=== PATIENT | female | born 1975 | race Caucasian/White ===

== ENCOUNTER 2017-03-18 00:23 | Emergency (ER) | payer OTHER ==
[2017-03-18 01:11] VITALS: BMI 25.8
[2017-03-18 01:25] VITALS: BP 134/76; PULSE 82; RESP 18; TEMP 98.1; O2SAT 99
--- NOTE | 2017-03-18 01:54 | ED PDOC ---
Arrival/HPI - General Chief Complaint: Abdominal Pain Time Seen by Provider: 03/18/17 01:00 Historian: Patient - History of Present Illness Narrative History of Present Illness (Text): 03/18/17 01:54 Risa Thompson is a 41 year old female, whose past medical history includes liposuction, abdominoplasty, and kidney stones, who presents to the Emergency department complaining of lower abdominal pain tonight. Patient states pain is greater in LLQ and radiates to her left flank. Patient denies any fever, chills , chest pain, shortness of breath, nausea, vomiting, diarrhea, urinary symptoms , neck pain, headache, dizziness, or any other complaints. Time/Duration: Other (tonight) Symptom Onset: Gradual Symptom Course: Unchanged Activities at Onset: Light Context: Home Past Medical History - Provider Review Nursing Documentation Reviewed: Yes - Infectious Disease Hx of Infectious Diseases: None - Tetanus Immunization Tetanus Immunization: Unknown - Cardiac Hx Heart Murmur: Yes - Renal Hx Kidney Stones: Yes (12-01-11) - Musculoskeletal/Rheumatological Hx Falls: No - Gastrointestinal Hx Colitis: Yes - Genitourinary/Gynecological Hx Urinary Tract Infection: Yes (12-01-11) - Psychiatric Hx Depression: No Hx Emotional Abuse: No Hx Physical Abuse: No Hx Substance Use: No - Past Surgical History Past Surgical History: No Previous - Anesthesia Hx Anesthesia: No Hx Anesthesia Reactions: No Hx Malignant Hyperthermia: No - Suicidal Assessment Feels Threatened In Home Enviroment: No Family/Social History - Physician Review Nursing Documentation Reviewed: Yes Family/Social History: Unknown Family HX Smoking Status: Never Smoked Hx Alcohol Use: No Hx Substance Use: No Hx Substance Use Treatment: No Allergies/Home Meds Allergies/Adverse Reactions: Allergies No Known Allergies Allergy (Verified 01/09/14 09:29) Review of Systems - Physician Review All systems were reviewed & negative as marked: Yes - Review of Systems Constitutional: Normal. absent: Fevers Eyes: Normal ENT: Normal Respiratory: Normal. absent: SOB, Cough Cardiovascular: Normal. absent: Chest Pain Gastrointestinal: Abdominal Pain. absent: Diarrhea, Nausea, Vomiting Genitourinary Female: Normal. absent: Dysuria, Frequency, Hematuria, Urine Output Changes Musculoskeletal: absent: Neck Pain Skin: Normal. absent: Rash Neurological: Normal. absent: Headache, Dizziness Endocrine: Normal Hemo/Lymphatic: Normal Psychiatric: Normal Physical Exam Vital Signs Reviewed: Yes Vital Signs Temp Pulse Resp BP Pulse Ox 03/18/17 01:25 98.1 F 82 18 134/76 99 Temperature: Afebrile Blood Pressure: Normal Pulse: Regular Respiratory Rate: Normal Appearance: Positive for: Well-Appearing, Non-Toxic, Comfortable Pain Distress: None Mental Status: Positive for: Alert and Oriented X 3 - Systems Exam Head: Present: Atraumatic, Normocephalic Pupils: Present: PERRL Extroacular Muscles: Present: EOMI Conjunctiva: Present: Normal Mouth: Present: Moist Mucous Membranes Neck: Present: Normal Range of Motion Respiratory/Chest: Present: Clear to Auscultation, Good Air Exchange. No: Respiratory Distress, Accessory Muscle Use Cardiovascular: Present: Regular Rate and Rhythm, Normal S1, S2. No: Murmurs Abdomen: Present: Normal Bowel Sounds. No: Tenderness, Distention, Peritoneal Signs Back: Present: Normal Inspection Upper Extremity: Present: Normal Inspection. No: Cyanosis, Edema Lower Extremity: Present: Normal Inspection. No: Edema Neurological: Present: GCS=15, CN II-XII Intact, Speech Normal Skin: Present: Warm, Dry, Normal Color. No: Rashes Psychiatric: Present: Alert, Oriented x 3, Normal Insight, Normal Concentration Medical Decision Making ED Course and Treatment: 03/18/17 01:54 Impression: 41 year old female complaining of lower abdominal pain radiating to left flank tonight. Plan: -- Labs, lipase -- Urinalysis -- Reassess and disposition Progress Notes: 03/18/17 04:40 CT Abdomen and Pelvis shows: Lower thorax: No acute findings. ABDOMEN: Liver: Unremarkable. Gallbladder and bile ducts: No calcified stones. No ductal dilation. Pancreas: Unremarkable. No ductal dilation. Spleen: No splenomegaly. Adrenals: No mass. Kidneys and ureters: Few small calculi within RIGHT kidney. No hydronephrosis. Stomach and bowel: Cecum within mid lower abdomen. No definite mural thickening. No obstruction. Appendix: Normal caliber. No inflammation. PELVIS: Bladder: Unremarkable. No stones. Reproductive: 2.1 x 2.3 x 2.2 cm hypodense lesion within LEFT ovary. ABDOMEN and PELVIS: Intraperitoneal space: No significant fluid collection. No free air. Bones/joints: No acute fracture. Soft tissues: Unremarkable. Vasculature: Unremarkable. No aneurysm. Lymph nodes: No pathologically enlarged lymph nodes. IMPRESSION: 1. Nonobstructing renal calculi. 2. Probable LEFT ovarian cyst. Consider ultrasound. - Lab Interpretations Lab Results: 03/18/17 02:10 03/18/17 02:10 Lab Results 03/18/17 02:10: Sodium 138, Potassium 3.6, Chloride 102, Carbon Dioxide 26, Anion Gap 14, BUN 10, Creatinine 0.8, Est GFR ( Amer) > 60, Est GFR (Non- Af Amer) > 60, Random Glucose 93, Calcium 9.5, Total Bilirubin 0.3, AST 32, ALT 39, Alkaline Phosphatase 92, Total Protein 7.8, Albumin 3.9, Globulin 3.9, Albumin/Globulin Ratio 1.0 L, Lipase 96 03/18/17 02:10: PT 12.3, INR 1.07, APTT 26.6 03/18/17 02:10: WBC 7.6, RBC 4.47, Hgb 12.2, Hct 38.2, MCV 85.5, MCH 27.3, MCHC 31.9, RDW 13.5, Plt Count 281, MPV 9.5, Gran % 57.8, Lymph % (Auto) 31.3, Porter % (Auto) 10.3 H, Eos % (Auto) 0.5 L, Baso % (Auto) 0.1, Gran # 4.38, Lymph # 2.4 , Porter # 0.8 H, Eos # 0.0, Baso # 0.01 03/18/17 01:54: Urine Color Yellow, Urine Appearance Clear, Urine pH 6.5, Ur Specific Kenvir 1.015, Urine Protein Negative, Urine Glucose (UA) Negative, Urine Ketones Negative, Urine Blood Small H, Urine Nitrate Negative, Urine Bilirubin Negative, Urine Urobilinogen 0.2, Ur Leukocyte Esterase Small H, Urine RBC 5 - 10, Urine WBC 1 - 3, Ur Epithelial Cells Many, Urine Bacteria Large, Urine HCG, Qual Negative I have reviewed the lab results: Yes - RAD Interpretation Radiology Orders: 03/18/17 02:23 ABD & PELVIS W/O PO OR IV CONT [CT] Stat [employer]: Radiologist - Scribe Statement The provider has reviewed the documentation as recorded by the Josh Rodney Provider Scribe Attestation: All medical record entries made by the Scribe were at my direction and personally dictated by me. I have reviewed the chart and agree that the record accurately reflects my personal performance of the history, physical exam, medical decision making, and the department course for this patient. I have also personally directed, reviewed, and agree with the discharge instructions and disposition. Disposition/Present on Arrival - Present on Arrival Any Indicators Present on Arrival: No History of DVT/PE: No History of Uncontrolled Diabetes: No Urinary Catheter: No History of Decub. Ulcer: No History Surgical Site Infection Following: None - Disposition Have Diagnosis and Disposition been Completed?: Yes Diagnosis: Urinary tract infectious disease Disposition: HOME/ ROUTINE Disposition Time: 03:50 Patient Problems: Current Active Problems Problem Status Onset Urinary tract infectious disease Acute Condition: GOOD Discharge Instructions (ExitCare): Urinary Tract Infection in Women (ED) Prescriptions: Cephalexin [Keflex] 500 mg PO BID #14 capsule Referrals: Annamarie Guillory MD [Primary Care Provider] - Follow up with primary Forms: [employer] (Liberian)
[2017-03-18 02:14] LABS: PH,URINE 6.5 (4.7-8.0); URINE BILIRUBIN NEGATIVE (NEGATIVE); URINE BLOOD SMALL (NEGATIVE); URINE GLUCOSE (UA) NEGATIVE (NEGATIVE); URINE LEUKOCYTE ESTERASE SMALL Leu/uL (NEGATIVE); URINE NITRATE NEGATIVE (NEGATIVE); URINE PROTEIN NEGATIVE mg/dL (<30 mg/dL); URINE UROBILINOGEN 0.2 E.U./dL (<1 E.U./dL)
[2017-03-18 02:18] LABS: HCG,QUALITATIVE URINE NEGATIVE (NEGATIVE); URINE APPEARANCE CLEAR (CLEAR); URINE COLOR YELLOW (YELLOW)
[2017-03-18 02:24] LABS: BASO # 0.01 K/mm3 (0.0-2.0); BASO % 0.1 % (0.0-3.0); EOS % 0.5 % (1.5-5.0); GRAN # 4.38 (1.4-6.5); GRAN % 57.8 % (50.0-68.0); HEMOGLOBIN 12.2 g/dL (12.0-16.0); LYMPH # 2.4 (1.2-3.4); LYMPH % 31.3 % (22.0-35.0); MEAN CELL VOLUME 85.5 fl (80.0-105.0); MEAN CORPUSCULAR HEMOGLOBIN 27.3 pg (25.0-35.0); MEAN CORPUSCULAR HGB CONC 31.9 g/dl (31.0-37.0); MEAN PLATELET VOLUME 9.5 fl (7.0-11.0); MONO # 0.8 (0.1-0.6); MONO % 10.3 % (1.0-6.0); RBC 4.47 10^6/uL (3.5-6.1); RED CELL DISTRIBUTION WIDTH 13.5 % (11.5-14.5); WHITE BLOOD COUNT 7.6 10^3/ul (4.5-11.0)
[2017-03-18 02:29] LABS: ALBUMIN 3.9 g/dL (3.0-4.8); ALT/SGPT 39 U/L (7-56); AST/SGOT 32 U/L (14-36); BLOOD UREA NITROGEN 10 mg/dL (7-21); CALCIUM 9.5 mg/dL (8.4-10.5); GFR AFRICAN-AMERICAN > 60; GFR NON-AFRICAN AMERICAN > 60; LIPASE 96 U/L (23-300)
[2017-03-18 02:34] LABS: URINE BACTERIA LARGE (NEG); URINE EPITHELIAL CELLS MANY /hpf (0-5)
[2017-03-18 02:36] LABS: INR 1.07 (0.93-1.08); PARTIAL THROMBOPLASTIN TIME 26.6 Seconds (25.1-36.5); PROTHROMBIN TIME 12.3 SECONDS (9.4-12.5)
--- NOTE | 2017-03-18 04:28 | CT ---
EXAM: CT Abdomen and Pelvis Without Intravenous Contrast CLINICAL HISTORY: 41 years old, female; Pain; Abdominal pain; Flank; Lower; Additional info: R/O stone TECHNIQUE: Axial computed tomography images of the abdomen and pelvis without intravenous contrast. All CT scans at this facility use one or more dose reduction techniques, viz.: automated exposure control; ma/kV adjustment per patient size (including targeted exams where dose is matched to indication; i.e. head); or iterative reconstruction technique. Coronal and sagittal reformatted images were created and reviewed. COMPARISON: No relevant prior studies available. FINDINGS: Lower thorax: No acute findings. ABDOMEN: Liver: Unremarkable. Gallbladder and bile ducts: No calcified stones. No ductal dilation. Pancreas: Unremarkable. No ductal dilation. Spleen: No splenomegaly. Adrenals: No mass. Kidneys and ureters: Few small calculi within RIGHT kidney. No hydronephrosis. Stomach and bowel: Cecum within mid lower abdomen. No definite mural thickening. No obstruction. Appendix: Normal caliber. No inflammation. PELVIS: Bladder: Unremarkable. No stones. Reproductive: 2.1 x 2.3 x 2.2 cm hypodense lesion within LEFT ovary. ABDOMEN and PELVIS: Intraperitoneal space: No significant fluid collection. No free air. Bones/joints: No acute fracture. Soft tissues: Unremarkable. Vasculature: Unremarkable. No aneurysm. Lymph nodes: No pathologically enlarged lymph nodes. IMPRESSION: 1. Nonobstructing renal calculi. 2. Probable LEFT ovarian cyst. Consider ultrasound.
== END 2017-03-18 03:55 | disposition home or self-care (01) ==
LOC: ED 00:23
DX: N39.0 Urinary tract infection, site not specified (principal)

== ENCOUNTER 2017-12-05 23:53 | Emergency (ER) | payer OTHER ==
--- NOTE | 2017-12-06 00:31 | ED PDOC ---
Arrival/HPI - General Time Seen by Provider: 12/06/17 00:11 Historian: Patient - History of Present Illness Narrative History of Present Illness (Text): 12/06/17 00:31 Risa Thompson is a 41 year old female, whose past medical history includes liposuction, abdominoplasty, and kidney stones, who presents to the Emergency department complaining of diarrhea. Patient states she has been experiencing generalized abdominal pain with associated diarrhea for the past 3 weeks. Patient also notes some blood per rectum over the past few days. Patient states her daughter has been sick with similar symptoms. Patient denies any fever, chills, chest pain, shortness of breath, nausea, vomiting, neck pain, headache, dizziness, or any other complaints. Symptom Onset: Gradual Symptom Course: Unchanged Activities at Onset: Light Context: Home Past Medical History - Provider Review Nursing Documentation Reviewed: Yes - Infectious Disease Hx of Infectious Diseases: None - Tetanus Immunization Tetanus Immunization: Unknown - Cardiac Hx Heart Murmur: Yes - Renal Hx Kidney Stones: Yes (12-01-11) - Musculoskeletal/Rheumatological Hx Falls: No - Gastrointestinal Hx Colitis: Yes - Genitourinary/Gynecological Hx Urinary Tract Infection: Yes (12-01-11) - Psychiatric Hx Depression: No Hx Emotional Abuse: No Hx Physical Abuse: No Hx Substance Use: No - Past Surgical History Past Surgical History: No Previous - Anesthesia Hx Anesthesia: No Hx Anesthesia Reactions: No Hx Malignant Hyperthermia: No - Suicidal Assessment Feels Threatened In Home Enviroment: No Family/Social History - Physician Review Nursing Documentation Reviewed: Yes Family/Social History: Unknown Family HX Smoking Status: Never Smoked Hx Alcohol Use: No Hx Substance Use: No Hx Substance Use Treatment: No Allergies/Home Meds Allergies/Adverse Reactions: Allergies No Known Allergies Allergy (Verified 01/09/14 09:29) Review of Systems - Physician Review All systems were reviewed & negative as marked: Yes - Review of Systems Constitutional: Normal. absent: Fevers Eyes: Normal ENT: Normal Respiratory: Normal. absent: SOB, Cough Cardiovascular: Normal. absent: Chest Pain Gastrointestinal: Abdominal Pain, Diarrhea, Hematochezia Genitourinary Female: Normal. absent: Dysuria, Frequency, Hematuria, Urine Output Changes Musculoskeletal: Normal. absent: Back Pain, Neck Pain Skin: Normal. absent: Rash Neurological: Normal. absent: Headache, Dizziness Endocrine: Normal Hemo/Lymphatic: Normal Psychiatric: Normal Physical Exam Vital Signs Reviewed: Yes Temperature: Afebrile Blood Pressure: Normal Pulse: Regular Respiratory Rate: Normal Appearance: Positive for: Well-Appearing, Non-Toxic, Comfortable Pain Distress: None Mental Status: Positive for: Alert and Oriented X 3 - Systems Exam Head: Present: Atraumatic, Normocephalic Pupils: Present: PERRL Extroacular Muscles: Present: EOMI Conjunctiva: Present: Normal Mouth: Present: Moist Mucous Membranes Neck: Present: Normal Range of Motion Respiratory/Chest: Present: Clear to Auscultation, Good Air Exchange. No: Respiratory Distress, Accessory Muscle Use Cardiovascular: Present: Regular Rate and Rhythm, Normal S1, S2. No: Murmurs Abdomen: No: Tenderness, Distention, Peritoneal Signs Back: Present: Normal Inspection Upper Extremity: Present: Normal Inspection. No: Cyanosis, Edema Lower Extremity: Present: Normal Inspection. No: Edema Neurological: Present: GCS=15, CN II-XII Intact, Speech Normal Skin: Present: Warm, Dry, Normal Color. No: Rashes Psychiatric: Present: Alert, Oriented x 3, Normal Insight, Normal Concentration Medical Decision Making ED Course and Treatment: 12/06/17 00:31 Impression: 42 year old female complaining of abdominal pain, diarrhea, and blood per rectum Plan: -- Labs, lipase -- Urinalysis -- IV fluids -- Reassess and disposition Prior Visits: Notes and results from previous visits were reviewed. Progress Notes: 12/06/17 04:39 CT Abdomen and Pelvis reviewed, shows: Interval appearance of mild multifocal thickening of the colon. Fluid-filled small bowels. The liver is of uniform attenuation without mass or defect. There is no intra or extrahepatic biliary ductal dilatation. The spleen is normal. The gallbladder is within normal limits. The pancreas is of normal contour and attenuation characteristics. There is no evidence of adrenal mass. Both kidneys demonstrate prompt and equal nephrograms. The kidneys are normal in size, shape and configuration. There is no evidence of renal or ureteral mass. No left renal or ureteral calculi are identified. Right renal nonobstructing stones with the largest measuring 4 mm. There is no hydroureter or hydronephrosis. No evidence for appendicitis. No evidence for small or large bowel obstruction. There is no evidence of intrinsic or extrinsic bladder mass. 1.6 cm left ovarian ruptured follicle with minimal amount of free pelvic fluid. Images of the lung bases show no evidence of pleural or parenchymal mass. There are no pleural effusions. The bony structures are free of lytic or blastic lesions. IMPRESSION: Uncomplicated mild enterocolitis. - Lab Interpretations I have reviewed the lab results: Yes - RAD Interpretation Supervisor [employer]: Radiologist - Scribe Statement The provider has reviewed the documentation as recorded by the Neishaibroyce Rodney Provider Scribe Attestation: All medical record entries made by the Scribe were at my direction and personally dictated by me. I have reviewed the chart and agree that the record accurately reflects my personal performance of the history, physical exam, medical decision making, and the department course for this patient. I have also personally directed, reviewed, and agree with the discharge instructions and disposition. Disposition/Present on Arrival - Present on Arrival Any Indicators Present on Arrival: No History of DVT/PE: No History of Uncontrolled Diabetes: No Urinary Catheter: No History Surgical Site Infection Following: None - Disposition Have Diagnosis and Disposition been Completed?: Yes Diagnosis: Diarrhea Disposition: HOME/ ROUTINE Disposition Time: 05:00 Condition: GOOD Discharge Instructions (ExitCare): Diarrhea in Adolescents and Adults Prescriptions: Metronidazole [Flagyl] 500 mg PO TID #15 tab Referrals: Annamarie Guillory MD [Primary Care Provider] - Follow up with primary Forms: WORK NOTE
[2017-12-06 00:40] VITALS: BMI 24.2
[2017-12-06] MEDS ORDERED: Sodium Chloride 0.9% 1,000 ML IV STA (00:40)
[2017-12-06 00:49] VITALS: TEMP 98.6; O2SAT 100
[2017-12-06 01:22] LABS: INR 1.01; PARTIAL THROMBOPLASTIN TIME 26.8 Seconds (25.1-36.5); PROTHROMBIN TIME 11.5 SECONDS (9.4-12.5)
[2017-12-06 01:23] LABS: BASO # 0.02 K/mm3 (0.0-2.0); BASO % 0.3 % (0.0-3.0); EOS # 1.1 (0.0-0.7); EOS % 14.4 % (1.5-5.0); GRAN # 2.58 (1.4-6.5); HEMOGLOBIN 12.5 g/dL (12.0-16.0); LYMPH # 3.2 (1.2-3.4); LYMPH % 42.2 % (22.0-35.0); MEAN CELL VOLUME 84.2 fl (80.0-105.0); MEAN CORPUSCULAR HEMOGLOBIN 27.1 pg (25.0-35.0); MEAN CORPUSCULAR HGB CONC 32.2 g/dl (31.0-37.0); MEAN PLATELET VOLUME 8.5 fl (7.0-11.0); MONO # 0.7 (0.1-0.6); MONO % 9.1 % (1.0-6.0); RBC 4.61 10^6/uL (3.5-6.1); RED CELL DISTRIBUTION WIDTH 14.5 % (11.5-14.5); WHITE BLOOD COUNT 7.6 10^3/ul (4.5-11.0)
[2017-12-06 01:27] LABS: ALBUMIN 3.8 g/dL (3.0-4.8); ALT/SGPT 28 U/L (7-56); AST/SGOT 28 U/L (14-36); BLOOD UREA NITROGEN 7 mg/dL (7-21); GFR NON-AFRICAN AMERICAN > 60; LIPASE 451 U/L (23-300)
[2017-12-06 01:29] LABS: URINE BILIRUBIN NEGATIVE (NEGATIVE); URINE BLOOD SMALL (NEGATIVE); URINE GLUCOSE (UA) NEGATIVE (NEGATIVE); URINE LEUKOCYTE ESTERASE SMALL Leu/uL (NEGATIVE); URINE PROTEIN NEGATIVE mg/dL (<30 mg/dL); URINE UROBILINOGEN 0.2 E.U./dL (<1 E.U./dL)
[2017-12-06 01:41] LABS: URINE APPEARANCE CLEAR (CLEAR); URINE COLOR YELLOW (YELLOW)
[2017-12-06 01:52] LABS: URINE BACTERIA TRACE (NEG); URINE RBC 0 - 2 /hpf (0-2)
[2017-12-06] MEDS ORDERED: Iohexol 350 MG/100 ML VIAL ONE (03:03)
[2017-12-06 05:12] VITALS: BP 129/78; PULSE 78; RESP 14
--- NOTE | 2017-12-06 10:13 | CT ---
Date of service: 12/06/2017 PROCEDURE: CT Abdomen and Pelvis with contrast HISTORY: abd pain COMPARISON: None. TECHNIQUE: Contrast dose: 100 cc of Omni 350 Radiation dose: Total exam DLP = 683 mGy-cm. This CT exam was performed using one or more of the following dose reduction techniques: Automated exposure control, adjustment of the mA and/or kV according to patient size, and/or use of iterative reconstruction technique. FINDINGS: LOWER THORAX: Unremarkable. LIVER: Unremarkable. No gross lesion or ductal dilatation. GALLBLADDER AND BILE DUCTS: Unremarkable. PANCREAS: Unremarkable. No gross lesion or ductal dilatation. SPLEEN: Unremarkable. ADRENALS: Unremarkable. No mass. KIDNEYS AND URETERS: Nonobstructing stones in the lower pole of the right kidney VASCULATURE: Unremarkable. No aortic aneurysm. BOWEL: There is mild mural thickening in the descending colon. There are nondilated fluid-filled loops of small bowel. Possible enterocolitis. APPENDIX: Normal appendix. PERITONEUM: Unremarkable. No free fluid. No free air. LYMPH NODES: Unremarkable. No enlarged lymph nodes. BLADDER: Unremarkable. REPRODUCTIVE: Unremarkable. BONES: No acute fracture. OTHER FINDINGS: The report concurs with the preliminary [facility] report IMPRESSION: There is mild mural thickening in the descending colon. There are nondilated fluid-filled loops of small bowel. Possible enterocolitis.
== END 2017-12-06 05:26 | disposition home or self-care (01) ==
LOC: ED 23:53
DX: R19.7 Diarrhea, unspecified (principal)
CPT/HCPCS: 74177; 80053; 81001; 83690; 83735; 85025; 85610; 85730; 87086; 96360; 99284; J7030; Q9967

== ENCOUNTER 2018-05-10 10:07 | Inpatient (IN) | payer BC, OTHER ==
[2018-05-10 10:28] VITALS: BMI 23.3
[2018-05-10] MEDS ORDERED: Sodium Chloride 0.9% 500 ML IV STA (11:00)
--- NOTE | 2018-05-10 11:04 | ED PDOC ---
Arrival/HPI - General Chief Complaint: GI Problem Time Seen by Provider: 05/10/18 10:21 Historian: Patient - History of Present Illness Narrative History of Present Illness (Text): 05/10/18 11:00 A 42 year old female, whose past medical history includes colitis, abdominoplasty- liposuction, presents to the emergency department for further evaluation of abdominal pain and bloody stools. Patient notes that she called her GI and was advised to come into the emergency department for further evaluation. She notes that she experienced abdominal pain 2 days ago. Patient notes that the bloody diarrhea is has been constant and is being evaluated by her GI. Patient also notes that she felt weak. Patient has been on 1 week of Vancomycin 250 mg and Flagyl 250 mg, but continues to bleed. The patient denies fevers, chills, headache, dizziness, chest pain, shortness of breath, dyspnea on exertion, cough, nausea, vomiting, back pain, neck pain, urinary changes, or any other complaint. GI: Dr. Ayala Time/Duration: Other (2 days) Symptom Onset: Gradual Symptom Course: Unchanged Activities at Onset: Rest, Light Context: Home Past Medical History - Provider Review Nursing Documentation Reviewed: Yes - Infectious Disease Hx of Infectious Diseases: None - Tetanus Immunization Tetanus Immunization: Unknown - Cardiac Hx Heart Murmur: Yes - Pulmonary Hx Respiratory Disorders: No - Neurological Hx Neurological Disorder: No - HEENT Hx HEENT Disorder: No - Renal Hx Kidney Stones: Yes (12-01-11) - Musculoskeletal/Rheumatological Hx Falls: No - Gastrointestinal Hx Colitis: Yes - Genitourinary/Gynecological Hx Urinary Tract Infection: Yes (12-01-11) - Psychiatric Hx Depression: No Hx Emotional Abuse: No Hx Physical Abuse: No Hx Substance Use: No - Past Surgical History Past Surgical History: No Previous - Surgical History Other/Comment: R breast cyst removal - Anesthesia Hx Anesthesia: No Hx Anesthesia Reactions: No Hx Malignant Hyperthermia: No - Suicidal Assessment Feels Threatened In Home Enviroment: No Family/Social History - Physician Review Nursing Documentation Reviewed: Yes Family/Social History: No Known Family HX Smoking Status: Never Smoked Hx Alcohol Use: No Hx Substance Use: No Hx Substance Use Treatment: No Allergies/Home Meds Allergies/Adverse Reactions: Allergies No Known Allergies Allergy (Verified 01/09/14 09:29) Review of Systems - Physician Review All systems were reviewed & negative as marked: Yes - Review of Systems Constitutional: absent: Fevers Respiratory: absent: SOB, Cough Cardiovascular: absent: Chest Pain, RIVERA Gastrointestinal: Abdominal Pain, Hematochezia. absent: Nausea, Vomiting Musculoskeletal: absent: Back Pain, Neck Pain Neurological: absent: Headache, Dizziness Physical Exam Vital Signs Reviewed: Yes Vital Signs Temp Pulse Resp BP Pulse Ox 05/10/18 10:44 98 F 98 H 19 103/72 100 Temperature: Afebrile Blood Pressure: Normal Pulse: Tachycardic Respiratory Rate: Normal Appearance: Positive for: Well-Appearing, Non-Toxic, Comfortable Pain Distress: None Mental Status: Positive for: Alert and Oriented X 3 - Systems Exam Head: Present: Atraumatic, Normocephalic Pupils: Present: PERRL Extroacular Muscles: Present: EOMI Conjunctiva: Present: Normal Mouth: Present: Moist Mucous Membranes Neck: Present: Normal Range of Motion Respiratory/Chest: Present: Clear to Auscultation, Good Air Exchange. No: Respiratory Distress, Accessory Muscle Use Cardiovascular: Present: Regular Rate and Rhythm, Normal S1, S2. No: Murmurs Abdomen: Present: Normal Bowel Sounds. No: Tenderness, Distention, Peritoneal Signs Rectal: Present: Normal Rectal Tone, Other (No stool in rectal vault. Guaiac positive. Female jitney driver (Josh Panchal) present.). No: Hemorrhoids, Fissures Back: Present: Normal Inspection Upper Extremity: Present: Normal Inspection. No: Cyanosis, Edema Lower Extremity: Present: Normal Inspection. No: Edema Neurological: Present: GCS=15, CN II-XII Intact, Speech Normal Skin: Present: Warm, Dry, Normal Color. No: Rashes Psychiatric: Present: Alert, Oriented x 3, Normal Insight, Normal Concentration Medical Decision Making ED Course and Treatment: 05/10/18 11:06 Impression: A 42 year old female presents to the emergency department with a complaint of abdominal pain and bloody stools. Differential Diagnosis included but are not limited to: GI Bleed, Colitis Plan: -- EKG -- Labs -- Pantoprazole and IV Fluids -- Reassess and disposition Prior Visits: Notes and results from previous visits were reviewed. Progress Notes: 05/10/18 11:39: Case discussed in detail with Dr. Ayala. 05/10/18 11:57: Dr. Ayala evaluated patient in the emergency department. He will take the patient to do a flex sigmoidostomy today. He concerned about her pancolitis and history of cdiff. It seems as though she is not improving after treatment of Vanco and Flagyl PO at home. He will start antibiotics on his indication. 05/10/18 12:04: Case discussed in detail with Dr. Dias who will accept the admission on her service. Patient failed outpatient tx and also dropped hgb levels by 2 since her last visit in November. She is feeling weak so I'm concerned for worsening volume loss from gi bleed. She showed me pictures of moderate amounts of blood stool during her daily bowel movements. - Lab Interpretations I have reviewed the lab results: Yes - EKG Interpretation Interpreted by ED Physician: Yes Type: 12 lead EKG - Scribe Statement The provider has reviewed the documentation as recorded by the Scribe Ranjana Panchal Provider Scribe Attestation: All medical record entries made by the Scribe were at my direction and personally dictated by me. I have reviewed the chart and agree that the record accurately reflects my personal performance of the history, physical exam, medical decision making, and the department course for this patient. I have also personally directed, reviewed, and agree with the discharge instructions and disposition. Disposition/Present on Arrival - Present on Arrival Any Indicators Present on Arrival: No History of DVT/PE: No History of Uncontrolled Diabetes: No Urinary Catheter: No History of Decub. Ulcer: No History Surgical Site Infection Following: None - Disposition Have Diagnosis and Disposition been Completed?: Yes Diagnosis: Abdominal pain, GI bleed Disposition: HOSPITALIZED Disposition Time: 12:19 Patient Plan: Admission Condition: FAIR Forms: [employer] (Yakut)
[2018-05-10 11:41] LABS: BASO # 0.02 K/mm3 (0.0-2.0); BASO % 0.3 % (0.0-3.0); EOS # 0.9 (0.0-0.7); EOS % 12.4 % (1.5-5.0); HEMOGLOBIN 10.7 g/dL (12.0-16.0); LYMPH # 2.4 (1.2-3.4); LYMPH % 32.2 % (22.0-35.0); MEAN CELL VOLUME 80.2 fl (80.0-105.0); MEAN CORPUSCULAR HEMOGLOBIN 25.2 pg (25.0-35.0); MEAN CORPUSCULAR HGB CONC 31.4 g/dl (31.0-37.0); MEAN PLATELET VOLUME 8.6 fl (7.0-11.0); MONO # 0.6 (0.1-0.6); MONO % 8.5 % (1.0-6.0); RBC 4.25 10^6/uL (3.5-6.1); RED CELL DISTRIBUTION WIDTH 14.8 % (11.5-14.5); WHITE BLOOD COUNT 7.5 10^3/uL (4.5-11.0)
[2018-05-10 11:49] LABS: ALB/GLOB RATIO 0.9 (1.1-1.8); ALBUMIN 3.5 g/dL (3.0-4.8); ALT/SGPT < 6 U/L (7-56); AST/SGOT 22 U/L (14-36); BLOOD UREA NITROGEN 9 mg/dL (7-21); CALCIUM 8.8 mg/dL (8.4-10.5); GFR NON-AFRICAN AMERICAN > 60
[2018-05-10 11:50] LABS: INR 1.17; PARTIAL THROMBOPLASTIN TIME 31.4 Seconds (26.9-38.3); PROTHROMBIN TIME 13.2 SECONDS (9.4-12.5)
[2018-05-10] MEDS ORDERED: Influenza Vaccine 60 mcg/0.5 mL SYR (4YR UP) IM ONE (14:35)
[2018-05-10] MEDS ORDERED: Pneumococcal 23-Valent Vaccine IM ONE (14:35)
[2018-05-10] MEDS ORDERED: HYDROmorphone 0.5 mg/0.5 ml ISec IVP PRN ×2 (15:01→15:26)
[2018-05-10] MEDS ORDERED: Propofol 10 mg/ml Inj (20 ML) ONE ×2 (15:07→15:29)
--- NOTE | 2018-05-10 15:14 | CARD ---
APPROVED REPORT Date of service: 05/10/2018 EKG Measurement Heart [id number] IN [id number] <Conclusion> Normal sinus rhythm Normal ECG
[2018-05-10] MEDS ORDERED: Sodium Chloride 0.9% 1,000 ML IV SCH (15:15)
--- NOTE | 2018-05-10 15:59 | CP.PCM.CON ---
<Shawnee Hallman - Last Filed: 05/10/18 17:11> History of Present Illness - History of Present Illness History of Present Illness: GI Consult note- Shawnee Hallman, PGY-2 Pt seen/examined at bedside with Dr. Ayala 42F w/hx of colitis, failed outpatient therapy consulted for abdominal pain x 2 days. Pt reports lower quadrant abdominal pain that radiated diffusely for the past 2 days, improved today. Pain is severe. Admits to diarrhea, hematochezia. Denies N & V, F & C, changes in urination, SOB, CP, other complaints. Failed PO vancomycin and PO flagyl outpatient therapy- pt reports she did not feel that the medications were helping, so she discontinued taking the medications. EMR reviewed - pt with positive S. Cerevisieae IgG Ab in 2011 (29.3). PMH: hx of colitis PSH: Abdominoplasty All: NKDA SH: Denies ETOH, tobacco or illicit drug use PMD: Denies Review of Systems - Review of Systems All systems: reviewed and no additional remarkable complaints except - Constitutional Constitutional: absent: Chills, Fever - EENT Eyes: absent: Change in Vision Nose/Mouth/Throat: absent: Sore Throat - Cardiovascular Cardiovascular: absent: Chest Pain - Gastrointestinal Gastrointestinal: Abdominal Pain, Diarrhea, Hematochezia, Melena. absent: Constipation, Hematemesis, Nausea, Vomiting - Genitourinary Genitourinary: absent: Change in Urinary Stream - Musculoskeletal Musculoskeletal: absent: Back Pain - Integumentary Integumentary: absent: Rash - Neurological Neurological: absent: Dizziness Past Patient History - Infectious Disease Hx of Infectious Diseases: None - Tetanus Immunizations Tetanus Immunization: Unknown - Past Social History Smoking Status: Never Smoked - CARDIAC Hx Cardiac Disorders: Yes Hx Heart Murmur: Yes - PULMONARY Hx Respiratory Disorders: No - NEUROLOGICAL Hx Neurological Disorder: No - HEENT Hx HEENT Problems: No - RENAL Hx Chronic Kidney Disease: Yes Hx Kidney Stones: Yes (11-30-) - ENDOCRINE/METABOLIC Hx Endocrine Disorders: No - HEMATOLOGICAL/ONCOLOGICAL Hx Blood Transfusions: (UNKNOWN) Hx Blood Transfusion Reaction: (UNKNOWN) - INTEGUMENTARY Hx Dermatological Problems: Yes (PARONYCHIA OF THUMB) - MUSCULOSKELETAL/RHEUMATOLOGICAL Hx Musculoskeletal Disorders: No Hx Falls: No - GASTROINTESTINAL Hx Gastrointestinal Disorders: Yes (C DIFF H/O,COLITIS 12-01-11) - GENITOURINARY/GYNECOLOGICAL Hx Genitourinary Disorders: Yes (RIGHT BREAST CYST REMOVED) Hx Urinary Tract Infection: Yes (12-01-11) - PSYCHIATRIC Hx Psychophysiologic Disorder: No Hx Depression: No Hx Emotional Abuse: No Hx Physical Abuse: No - SURGICAL HISTORY Hx Surgeries: Yes (ABDOMINOPLASTY-LIPOSUCTION) - ANESTHESIA Hx Anesthesia Reactions: No Hx Malignant Hyperthermia: No Meds Allergies/Adverse Reactions: Allergies Allergy/AdvReac Type Severity Reaction Status Date / Time No Known Allergies Allergy Verified 05/10/18 14:27 - Medications Medications: Current Medications Hydromorphone HCl (Dilaudid) 0.5 mg IVP Q15M PRN PRN Reason: Pain, Moderate/Severe (4-10) Sodium Chloride (Sodium Chloride 0.9%) 1,000 mls @ 75 mls/hr IV .[id number] [facility] Stop: 05/10/18 17:16 Metoclopramide HCl (Reglan) 10 mg IV ONCE PRN PRN Reason: Nausea/Vomiting Ondansetron HCl (Zofran Inj) 4 mg IVP ONCE PRN PRN Reason: Nausea/Vomiting Physical Exam - Constitutional Appears: Non-toxic, No Acute Distress - Head Exam Head Exam: ATRAUMATIC, NORMAL INSPECTION, NORMOCEPHALIC - Eye Exam Eye Exam: EOMI, Normal appearance - ENT Exam ENT Exam: Mucous Membranes Moist, Normal Exam - Neck Exam Neck exam: Positive for: Full Rom, Normal Inspection - Respiratory Exam Respiratory Exam: NORMAL BREATHING PATTERN - Cardiovascular Exam Cardiovascular Exam: REGULAR RHYTHM, +S1, +S2 - GI/Abdominal Exam GI & Abdominal Exam: Normal Bowel Sounds, Soft. absent: Distended, Firm, Guarding, Tenderness - Rectal Exam Rectal Exam: Bloody Stool, NORMAL INSPECTION. absent: Hemorrhoids - Extremities Exam Extremities exam: Positive for: normal inspection - Back Exam Back exam: NORMAL INSPECTION - Neurological Exam Neurological exam: Alert, CN II-XII Intact, Oriented x3 - Psychiatric Exam Psychiatric exam: Normal Affect, Normal Mood - Skin Skin Exam: Dry, Intact, Normal Color, Warm Results - Vital Signs Recent Vital Signs: Last Vital Signs Temp 97.9 F 05/10/18 14:29 Pulse 81 05/10/18 14:29 Resp 19 05/10/18 14:29 BP 103/41 L 03/15/19 14:29 Pulse Ox 100 05/10/18 15:19 - Labs Result Diagrams: 05/10/18 11:25 05/10/18 11:25 Labs: Laboratory Results - last 24 hr 05/10/18 05/10/18 05/10/18 11:25 11:25 11:25 WBC 7.5 RBC 4.25 Hgb 10.7 L Hct 34.1 L MCV 80.2 D MCH 25.2 MCHC 31.4 RDW 14.8 H Plt Count 434 MPV 8.6 Neut % (Auto) 46.6 L Lymph % (Auto) 32.2 Vigo % (Auto) 8.5 H Eos % (Auto) 12.4 H Baso % (Auto) 0.3 Lymph # (Auto) 2.4 Vigo # (Auto) 0.6 Eos # (Auto) 0.9 H Baso # (Auto) 0.02 Absolute Neuts (auto) 3.49 PT 13.2 H INR 1.17 APTT 31.4 Sodium 139 Potassium 3.6 Chloride 108 H Carbon Dioxide 22 Anion Gap 12 BUN 9 Creatinine 0.6 L Est GFR ( Amer) > 60 Est GFR (Non-Af Amer) > 60 Random Glucose 90 Calcium 8.8 Total Bilirubin 0.1 L AST 22 ALT < 6 L Alkaline Phosphatase 105 Total Protein 7.5 Albumin 3.5 Globulin 4.0 Albumin/Globulin Ratio 0.9 L Blood Type Antibody Screen BBK History Checked 05/10/18 11:25 WBC RBC Hgb Hct MCV MCH MCHC RDW Plt Count MPV Neut % (Auto) Lymph % (Auto) Vigo % (Auto) Eos % (Auto) Baso % (Auto) Lymph # (Auto) Vigo # (Auto) Eos # (Auto) Baso # (Auto) Absolute Neuts (auto) PT INR APTT Sodium Potassium Chloride Carbon Dioxide Anion Gap BUN Creatinine Est GFR ( Amer) Est GFR (Non-Af Amer) Random Glucose Calcium Total Bilirubin AST ALT Alkaline Phosphatase Total Protein Albumin Globulin Albumin/Globulin Ratio Blood Type B POSITIVE Antibody Screen Negative BBK History Checked Patient has bt Assessment & Plan - Assessment and Plan (Free Text) Assessment: 42F w/recurrent c diff colitis, failed outpatient therapy Plan: Flexible sigmoidoscopy performed- pt continues to have stigmata of severe colitis FU pathology FU C diff stool testing recommend CLD IV Flagyl Vancomycin enemas PO vanco FU celiac panel FU hepatitis panel FU IBD panel FU CT a/p w/po and IV contrast Pain control Recommend fecal transplant next week DW Dr. Ayala - Date & Time Date: 05/10/18 Time: 16:00 <Vanessa Ayala V - Last Filed: 05/10/18 19:52> Meds - Medications Medications: Current Medications Hydromorphone HCl (Dilaudid) 0.5 mg IVP Q15M PRN PRN Reason: Pain, Moderate/Severe (4-10) Metronidazole (Flagyl) 500 mg in 100 mls @ 100 mls/hr IVPB Q8 [facility]; Protocol Last Admin: 05/10/18 18:17 Dose: 100 mls/hr Metoclopramide HCl (Reglan) 10 mg IV ONCE PRN PRN Reason: Nausea/Vomiting Ondansetron HCl (Zofran Inj) 4 mg IVP Q6H PRN PRN Reason: Nausea/Vomiting Vancomycin HCl (Vancocin 25 Mg/Ml (Oral Use)) 250 mg PO QID MINERVA; Protocol Results - Vital Signs Recent Vital Signs: Last Vital Signs Temp 97.8 F 05/10/18 16:42 Pulse 79 05/10/18 16:42 Resp 16 05/10/18 16:42 BP 103/66 05/10/18 16:42 Pulse Ox 97 05/10/18 16:42 - Labs Result Diagrams: 05/10/18 11:25 05/10/18 11:25 Labs: Laboratory Results - last 24 hr 05/10/18 05/10/18 05/10/18 11:25 11:25 11:25 WBC 7.5 RBC 4.25 Hgb 10.7 L Hct 34.1 L MCV 80.2 D MCH 25.2 MCHC 31.4 RDW 14.8 H Plt Count 434 MPV 8.6 Neut % (Auto) 46.6 L Lymph % (Auto) 32.2 Vigo % (Auto) 8.5 H Eos % (Auto) 12.4 H Baso % (Auto) 0.3 Lymph # (Auto) 2.4 Vigo # (Auto) 0.6 Eos # (Auto) 0.9 H Baso # (Auto) 0.02 Absolute Neuts (auto) 3.49 PT 13.2 H INR 1.17 APTT 31.4 Sodium 139 Potassium 3.6 Chloride 108 H Carbon Dioxide 22 Anion Gap 12 BUN 9 Creatinine 0.6 L Est GFR ( Amer) > 60 Est GFR (Non-Af Amer) > 60 Random Glucose 90 Calcium 8.8 Total Bilirubin 0.1 L AST 22 ALT < 6 L Alkaline Phosphatase 105 Total Protein 7.5 Albumin 3.5 Globulin 4.0 Albumin/Globulin Ratio 0.9 L Blood Type Antibody Screen BBK History Checked 05/10/18 11:25 WBC RBC Hgb Hct MCV MCH MCHC RDW Plt Count MPV Neut % (Auto) Lymph % (Auto) Vigo % (Auto) Eos % (Auto) Baso % (Auto) Lymph # (Auto) Vigo # (Auto) Eos # (Auto) Baso # (Auto) Absolute Neuts (auto) PT INR APTT Sodium Potassium Chloride Carbon Dioxide Anion Gap BUN Creatinine Est GFR ( Amer) Est GFR (Non-Af Amer) Random Glucose Calcium Total Bilirubin AST ALT Alkaline Phosphatase Total Protein Albumin Globulin Albumin/Globulin Ratio Blood Type B POSITIVE Antibody Screen Negative BBK History Checked Patient has bt Attending/Attestation - Attestation I have personally seen and examined this patient.: Yes I have fully participated in the care of the patient.: Yes I have reviewed all pertinent clinical information: Yes Notes (Text): This patient was seen and evaluated here earlier with resident. Imaging studies and previous workup were reviewed Discussed with ER physician This patient initially presented with the acute onset of diarrhea vomiting and abdominal pain. This patient's daughter had similar symptoms and she was treated with antibiotics she responded. This patient also received antibiotics however she continued to have recurrent episodes of diarrhea and a colonoscopy revealed pseudomembranous colitis. Stool for C. difficile positive she was treated initially with vancomycin p.o. with good improvement. Patient subsequently had a recurrence of diarrhea after few weeks patient was restarted on vancomycin however patient did not respond well p.o. Flagyl was ordered patient was taking it but she continued to have symptoms even after 10 days of treatment with vancomycin present to the emergency room with complaints of abdominal discomfort bleeding per rectum. Patient had CT done in November 2017 which was reviewed showed a descending colon colitis. Patient did have sequential biopsies of the colon which revealed only active colitis no acute Review of the patient's old records in [facility] revealed patient was admitted even in [address] showed at that time terminal ileitis. Patient could not remember the hospitalization details Patient did have IBD serology done which showed a mildly elevated ASCA titers. Patient underwent a flexible sigmoidoscopy today she was found to have pseudomembranes colitis diffusely involving rectum and sigmoid colon. Multiple biopsies were taken. Stool also was sent for C. 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 Flagyl Etiology is unclear. We need to rule out other immunosuppressive conditions and also rule out CMV colitis Requested CT of the abdomen and pelvis with p.o. and IV contrast We will start the patient on clear liquid diet Also request IBD serology We will also start vancomycin anemia We WILL discuss with the 05/10/18 19:44
[2018-05-10] MEDS ORDERED: Vancomycin 500 mg (Oral/Rectal USE) PR SCH (18:00)
[2018-05-10] MEDS: metroNIDAZOLE IV 500 mg/100 ml 500 MG/100 ML BAG IVPB SCH ×2 (18:17→22:40)
[2018-05-10] MEDS ORDERED: Iohexol 350 MG/100 ML VIAL ONE (19:20)
[2018-05-10] MEDS ORDERED: Iohexol 240 (50 ml) ONE (19:20)
[2018-05-10] MEDS: Vancomycin 25 MG/ML PO SCH (22:30)
[2018-05-11] MEDS: metroNIDAZOLE IV 500 mg/100 ml 500 MG/100 ML BAG IVPB SCH ×3 (05:36→21:28)
[2018-05-11 07:04] LABS: BASO # 0.02 K/mm3 (0.0-2.0); BASO % 0.3 % (0.0-3.0); EOS # 1.2 (0.0-0.7); EOS % 15.6 % (1.5-5.0); HEMOGLOBIN 9.9 g/dL (12.0-16.0); LYMPH # 2.9 (1.2-3.4); LYMPH % 37.5 % (22.0-35.0); MEAN CELL VOLUME 80.5 fl (80.0-105.0); MEAN CORPUSCULAR HEMOGLOBIN 24.8 pg (25.0-35.0); MEAN CORPUSCULAR HGB CONC 30.7 g/dl (31.0-37.0); MEAN PLATELET VOLUME 8.5 fl (7.0-11.0); MONO # 0.8 (0.1-0.6); MONO % 10.2 % (1.0-6.0); RED CELL DISTRIBUTION WIDTH 14.8 % (11.5-14.5); WHITE BLOOD COUNT 7.7 10^3/uL (4.5-11.0)
[2018-05-11 07:21] LABS: ALB/GLOB RATIO 0.8 (1.1-1.8); ALT/SGPT 11 U/L (7-56); AST/SGOT 22 U/L (14-36); BLOOD UREA NITROGEN 4 mg/dL (7-21); CALCIUM 8.4 mg/dL (8.4-10.5); GFR NON-AFRICAN AMERICAN > 60
[2018-05-11] MEDS: Vancomycin 25 MG/ML PO SCH ×4 (09:30→21:32)
[2018-05-11] MEDS: Vancomycin 500 mg (Oral/Rectal USE) PR SCH ×4 (09:37→21:33)
--- NOTE | 2018-05-11 10:56 | CT ---
Date of service: 05/10/2018 PROCEDURE: CT Abdomen and Pelvis with contrast HISTORY: abdominal pain, diarrhea COMPARISON: 03/18/2017 and 12/06/[address] scans of the abdomen and pelvis. TECHNIQUE: Intravenous contrast dose: 100 cc Omnipaque 350. Radiation dose: Total exam DLP = 326.51 mGy-cm. This CT exam was performed using one or more of the following dose reduction techniques: Automated exposure control, adjustment of the mA and/or kV according to patient size, and/or use of iterative reconstruction technique. FINDINGS: LOWER THORAX: Unremarkable. LIVER: Unremarkable. No gross lesion or ductal dilatation. GALLBLADDER AND BILE DUCTS: Unremarkable. PANCREAS: Unremarkable. No gross lesion or ductal dilatation. SPLEEN: Unremarkable. ADRENALS: Contrast-enhancing characteristics ruptured left adnexal cyst with adjacent free fluid in the cul-de-sac. KIDNEYS AND URETERS: Nonobstructing calculi lower pole right kidney (2). Similar findings identified on the prior study. No hydronephrosis. No solid mass. VASCULATURE: Unremarkable. No aortic aneurysm. No atherosclerotic calcification or mural plaque present. BOWEL: Diffuse, pérez colitis. Similar distribution to that seen previously. Overall less severe compared to the prior study. APPENDIX: No evidence of acute appendicitis. PERITONEUM: Trace free fluid identified in the pelvis/cul de sac. No free air. LYMPH NODES: Unremarkable. No enlarged lymph nodes. BLADDER: Unremarkable. REPRODUCTIVE: Unremarkable. BONES: No acute fracture. OTHER FINDINGS: None. IMPRESSION: Pancolitis similar in distribution compared to the prior study. Less severe findings compared to the prior study 12/06/2017. Stable nonobstructing right renal calculi. Concordant results (preliminary interpretation) provided by [email or web address]. Procedure Completed: 21:38. Preliminary Report: Interpreted and electronically signed: 22:25. Final Interpretation: 10:50. May 11, 2018
--- NOTE | 2018-05-11 11:49 | CP.PCM.PN ---
<Yonatan Bright - Last Filed: 05/11/18 11:53> Subjective - Date & Time of Evaluation Date of Evaluation: 05/11/18 Time of Evaluation: 11:45 - Subjective Subjective: She states she is feeling better since being in the hospital. Last BM was earlier this AM and small/bloody. Denies abdominal pain. She is tolerating CLD, requesting to advance diet. Objective - Vital Signs/Intake and Output Vital Signs (last 24 hours): Temp Pulse Resp BP Pulse Ox 98.5 F 72 18 101/68 98 05/11/18 06:00 05/11/18 06:00 05/11/18 06:00 05/11/18 06:00 05/11/18 06:00 Intake and Output: 05/11/18 05/11/18 06:59 18:59 Intake Total 240 Balance 240 - Medications Medications: Current Medications Hydromorphone HCl (Dilaudid) 0.5 mg IVP Q15M PRN PRN Reason: Pain, Moderate/Severe (4-10) Metronidazole (Flagyl) 500 mg in 100 mls @ 100 mls/hr IVPB Q8 [facility]; Protocol Last Admin: 05/11/18 05:36 Dose: 100 mls/hr Metoclopramide HCl (Reglan) 10 mg IV ONCE PRN PRN Reason: Nausea/Vomiting Ondansetron HCl (Zofran Inj) 4 mg IVP Q6H PRN PRN Reason: Nausea/Vomiting Vancomycin HCl (Vancocin 25 Mg/Ml (Oral Use)) 250 mg PO QID MINERVA; Protocol Last Admin: 05/10/18 22:30 Dose: 250 mg Vancomycin HCl (Vancocin (Oral/Rectal Use)) 500 mg AL QID MINERVA; Protocol Last Admin: 05/11/18 09:37 Dose: 500 mg - Labs Labs: 05/11/18 05:30 05/11/18 05:30 PT 13.2 SECONDS (9.4-12.5) H 05/10/18 11:25 INR 1.17 05/10/18 11:25 APTT 31.4 Seconds (26.9-38.3) 05/10/18 11:25 - Constitutional Appears: Non-toxic, No Acute Distress - Head Exam Head Exam: ATRAUMATIC, NORMAL INSPECTION - ENT Exam ENT Exam: Mucous Membranes Moist, Normal Exam - Respiratory Exam Respiratory Exam: Clear to Ausculation Bilateral, NORMAL BREATHING PATTERN - Cardiovascular Exam Cardiovascular Exam: REGULAR RHYTHM, +S1, +S2 - GI/Abdominal Exam GI & Abdominal Exam: Soft, Normal Bowel Sounds. absent: Tenderness - Extremities Exam Extremities Exam: Normal Inspection. absent: Pedal Edema - Neurological Exam Neurological Exam: Alert, Awake, Oriented x3 - Psychiatric Exam Psychiatric exam: Normal Affect, Normal Mood Assessment and Plan - Assessment and Plan (Free Text) Assessment: 42F w/ recurrent c diff colitis (most likely), failed outpatient therapy. Other differential for colitis should be IBD and infectious. If patient does not improve on appropriate abx therapy, the IBD/infection should be considered more broadly. Plan: Flexible sigmoidoscopy 05/10- pt continues to have stigmata of severe colitis CT 05/10 - Pancolitis , less severe compared to 12/13 C diff stool testing negative however, she has been on treatment and likelihood of C.diff is still high and treatment has not been optimized. FU pathology - r/o IBD, CMV Continue CLD IV Flagyl Vancomycin enemas PO vanco FU celiac panel FU hepatitis panel, HIV FU IBD panel FU CT a/p w/po and IV contrast Pain control Recommend fecal transplant next week DW Dr. Ayala <Vanessa Ayala V - Last Filed: 05/11/18 16:44> Objective - Vital Signs/Intake and Output Vital Signs (last 24 hours): Temp Pulse Resp BP Pulse Ox 98.5 F 75 18 101/68 98 05/11/18 06:00 05/11/18 14:00 05/11/18 06:00 05/11/18 06:00 05/11/18 06:00 Intake and Output: 05/11/18 05/11/18 06:59 18:59 Intake Total 240 640 Output Total 600 Balance 240 40 - Medications Medications: Current Medications Hydromorphone HCl (Dilaudid) 0.5 mg IVP Q15M PRN PRN Reason: Pain, Moderate/Severe (4-10) Metronidazole (Flagyl) 500 mg in 100 mls @ 100 mls/hr IVPB Q8 [facility]ERVA; Protocol Last Admin: 05/11/18 13:16 Dose: 100 mls/hr Dextrose/Sodium Chloride (Dextrose 5%/0.9% Ns 1000 Ml) 1,000 mls @ 70 mls/hr IV .[id number] [facility] Metoclopramide HCl (Reglan) 10 mg IV ONCE PRN PRN Reason: Nausea/Vomiting Morphine Sulfate (Morphine) 1 mg IVP Q6 PRN PRN Reason: Pain, severe (8-10) Ondansetron HCl (Zofran Inj) 4 mg IVP Q6H PRN PRN Reason: Nausea/Vomiting Ondansetron HCl (Zofran Inj) 4 mg IVP Q6H PRN PRN Reason: Nausea/Vomiting Vancomycin HCl (Vancocin 25 Mg/Ml (Oral Use)) 250 mg PO QID MINERVA; Protocol Last Admin: 05/11/18 13:16 Dose: 250 mg Vancomycin HCl (Vancocin (Oral/Rectal Use)) 500 mg AL QID MINERVA; Protocol Last Admin: 05/11/18 13:47 Dose: Not Given - Labs Labs: 05/11/18 05:30 05/11/18 05:30 PT 13.2 SECONDS (9.4-12.5) H 05/10/18 11:25 INR 1.17 05/10/18 11:25 APTT 31.4 Seconds (26.9-38.3) 05/10/18 11:25 Attending/Attestation - Attestation I have personally seen and examined this patient.: Yes I have fully participated in the care of the patient.: Yes I have reviewed all pertinent clinical information, including history, physical exam and plan: Yes Notes (Text): This is an addendum to the GI progress report dictated by GI fellow. This patient was seen and evaluated earlier Patient feels hungry and nauseous. She wants regular food. Patient did complain of episodes of abdominal pain for which she did receive morphine. Patient stool studies now negative for C. difficile. However the flexible sigm oidoscopy showed pseudomembranes. Biopsies from the previous colonoscopy were reviewed and showed only chronic colitis and did not report any cryptitis. Recent flex sig done yesterday biopsies were taken path pending. Previous CT imaging were reviewed The possible differential diagnosis in her case should include inflammatory bowel disease versus C. difficile colitis or combination of C. difficile in addition to background IBD. Patient has poor tolerance to Flagyl Patient is already on vancomycin p.o. and also rectal enema We will continue clear liquid diet Review of the CAT scan also showed a mildly distended gallbladder in view of the colicky type of pain patient complains it is reasonable to request for ultrasound of the abdomen to rule out any gallstones. We WILL discusS with Dr. Dias 05/11/18 16:39
[2018-05-11] MEDS ORDERED: Morphine 2 mg/ml ISec IVP STA (13:03)
--- NOTE | 2018-05-11 13:03 | CP.PCM.PCO ---
Physician Communication Note - Physician Communication Note Physician Communication Note: Patient complaining of severe abdominal pain, will order 2 mg morphine ivp.
--- NOTE | 2018-05-11 15:37 | HP ---
DATE OF EXAM: 05/10/2018 HISTORY OF PRESENT ILLNESS: This 42-year-old female was examined in the [facility] ER on the afternoon of 05/10/2018. She presented to the [facility] ER complaining of severe abdominal pain and bloody stools for the past few days. PAST MEDICAL HISTORY: Significant for chronic colitis, history of c. diff colitis and liposuction. She is under the chronic outpatient followup of Dr. Vanessa Ayala from GI. In the emergency room, the patient was complaining of recurrent bloody stools and she showed me multiple cell phone pictures to demonstrate formed stool covered with blood upon multiple occasions in the past several days. The patient states that she had a history of colitis for which she was prescribed vancomycin and Flagyl, however, continued to feel weak with persistent GI bleeding and presents to the emergency room for further evaluation of the above. Most recently, this episode was lasting over the previous 48 hours. REVIEW OF SYSTEMS CONSTITUTIONAL: Denied fever or chills. HEAD: No headache or seizures. EYES: No change in visual acuity. EAR: No hearing loss. THROAT: No swallowing difficulty. NECK: No stiffness. CARDIAC: No chest pain. No palpitation. No history of hypertension. PULMONARY: No cough. No hemoptysis. GASTROINTESTINAL: As per HPI. GENITOURINARY: History of nephrolithiasis in 2011. VASCULAR: No claudication. PSYCHOLOGICAL: Denied any knowledge of psychosis or anxiety or depression. NEUROLOGICAL: No knowledge of stroke. SOCIAL HISTORY: She states she is a nonsmoker, nondrinker, non IV drug misuser. ALLERGIES: Denied any allergy to medication. OUTPATIENT MEDICATIONS: Included vancomycin and Flagyl. PHYSICAL EXAMINATION VITAL SIGNS: Physical exam at the time of my interview showed temperature 98, respirations 19, pulse 98, and blood pressure 103/72 with a pulse ox of 100% on room air. HEENT: Head: Normocephalic, atraumatic. Eyes: No icterus. Ears: Clear. Throat: Noninjected. NECK: Supple. HEART: S1 and S2. LUNGS: Clear. ABDOMEN: Soft. No rebound. No guarding. No tenderness. Diffuse discomfort on palpation. EXTREMITIES: No edema. SKIN: Without rash. NEUROLOGICAL: Intact. PSYCHOLOGICAL: Anxious. VASCULAR: Legs warm to touch. LABORATORY DATA: White count 7500, hemoglobin 10.7, hematocrit 34.1, platelets 434,000. PT/INR 1.17, PTT 31.4. Sodium 139, K 3.6, chloride 108, bicarb 22, BUN 9, creatinine 0.6, random blood sugar 90, calcium 8.8. Bilirubin 0.1, AST 22, ALT less than 6, alk phos 105. EKG was reviewed. It showed normal sinus rhythm. IMPRESSION: A 42-year-old female with history of Clostridium difficile colitis and Clostridium difficile toxin under the followup of Dr. Vanessa Ayala from Gastrointestinal. The patient will be admitted. She will have an urgent consultation with Dr. Ayala. He will be planning a sigmoidoscopy, and the patient has been started on IV fluids. She remains n.p.o. Based on his findings, additional diagnostic workup and testing will be entertained. Greater than 75 minutes was spent in the care management, review of labs, orders and x-rays, and discussion of this patient with herself, emergency room physician, Dr. Cruz, and Dr. Vanessa Ayala. All questions were answered. Celi Dias MD ETHAN
--- NOTE | 2018-05-11 17:51 | PN ---
DATE: 05/11/2018 SUBJECTIVE: This 42-year-old female was examined at her bedside on the afternoon of 05/11/2018. This case was reviewed in detail with herself, nurse, Celi Rosales, registered nurse, and Dr. Vanessa Ayala from GI. The patient is status post an emergency flexible sigmoidoscopy on the afternoon of 05/10/2018. She was admitted with hematochezia, diarrhea, and had a history of pseudomembranous colitis prior to this admission. Her endoscopic findings were diffuse pseudomembrane colitis especially in the rectum and sigmoid colon with severe inflammation characterized by erosions, erythema, friability and mucus was found in the rectum and in the sigmoid colon as well. Biopsies were taken for histological review. At present, the patient is lying in bed. She is complaining of diffuse abdominal discomfort and was given a stat dose of morphine sulfate and IV Protonix. PHYSICAL EXAMINATION: VITAL SIGNS: Her temperature was 98.5, respirations 18, pulse 72 and blood pressure 101/68 with a pulse ox of 98%. She is in a normal sinus rhythm on the electronic device monitor. HEENT: Head: Normocephalic, atraumatic. Eyes: No icterus. Ears: Clear. Throat noninjected. NECK: Supple. HEART: S1 and S2. LUNGS: Clear. ABDOMEN: Soft. Diffuse tenderness on all four quadrant palpation. No rebound, no guarding. No tenderness. EXTREMITIES: No edema. SKIN: Without rash. NEUROLOGIC: Intact. PSYCHOLOGIC: Anxious. VASCULAR: Legs warm to touch. LABORATORY DATA: Sodium 138, K 4.1, chloride 109, bicarb 23, BUN 4, creatinine 0.6, random blood sugar 84. Magnesium 1.9. Bilirubin 0.2, AST 22, ALT 11 and alk phos 87. White count 7700, hemoglobin 9.9, hematocrit 32.2, platelets 386,000. PT/INR 1.17, PTT 31.4. Abdominal pelvic CT dated 05/10/2018 was reviewed. She was noted to have nonobstructing calculi in the lower pole of her right kidney similar to findings on a prior study. There was no hydronephrosis and no solid masses. Her bowel showed pancolitis which appeared overall less severe compared to a prior study. IMPRESSION: This is a 42-year-old female with pancolitis, history of pseudomembranous colitis, and now with diffuse abdominal discomfort. PLAN: As discussed with the patient and nurse, Celi Connie, will be to obtain a hepatitis A, B and C panel as well as the celiac disease, comprehensive panel, an HIV panel, an irritable bowel differentiation panel, and a C. Diff toxin panel. She is ordered to have stool for culture and sensitivity. She will be continued on Flagyl 500 mg IV every 8 hours, Reglan 10 mg IV one dose, vancomycin 500 mg per rectum four times a day and vancomycin 250 mg p.o. four times a day. She is ordered to have Zofran 4 mg IV every 6 hours p.r.n. nausea and vomiting, 2 liters of nasal O2. She was cleared by Dr. Ayala for a liquid diet and remains in isolation precautions. Based on her clinical progress, additional diagnostic workup and testing will be entertained. Given her multiple complaints, I have asked nurse Connie to reach out to Dr. Vanessa Ayala for further evaluation. Greater than 35 minutes was spent in the care management, review of labs, orders and x-rays and discussion of this patient with herself and her nurse. All questions were answered. Celi Dias MD
[2018-05-12] MEDS: metroNIDAZOLE IV 500 mg/100 ml 500 MG/100 ML BAG IVPB SCH ×3 (06:07→22:04)
[2018-05-12] MEDS: Dextrose 5%/0.9% NS 1,000 ML IV SCH (06:07)
[2018-05-12 09:00] LABS: HEPATITIS B SURFACE AG Negative (NEGATIVE)
[2018-05-12 09:05] LABS: HEPATITIS A IGM NEGATIVE (NEGATIVE); HEPATITIS B CORE AB NEGATIVE (NEGATIVE)
[2018-05-12 09:21] LABS: HEPATITIS C ANTIBODY NEGATIVE (NEGATIVE)
--- NOTE | 2018-05-12 10:03 | US ---
Date of service: 05/12/2018 HISTORY: To Check for stones COMPARISON: 05/10/2018. CT abdomen and pelvis. TECHNIQUE: Sonographic evaluation of the abdomen. FINDINGS: LIVER: Measures 13.7 cm. School Hepatic steatosis. No focal masses. No intrahepatic bile duct dilatation or perihepatic ascites. echogenicity of the liver parenchyma. No mass. No intrahepatic bile duct dilatation. GALLBLADDER: Unremarkable. No gallstones. COMMON BILE DUCT: Measures 4.6 mm. No stones. No dilatation. PANCREAS: Unremarkable as visualized. No mass. No ductal dilatation. RIGHT KIDNEY: Measures 4.1 x 9.6cm. Normal echogenicity. No calculus, mass, or hydronephrosis. LEFT KIDNEY: Measures 5.1 x 9.4cm. Normal echogenicity. No calculus, mass, or hydronephrosis. SPLEEN: Normal in size and contour. No mass. AORTA: No aneurysmal dilatation. IVC: Unremarkable. OTHER FINDINGS: None. IMPRESSION: No acute or significant findings related to/ accounting for the clinical presentation. Additional benign and/or incidental findings described above. Fatty infiltration of the liver. No significant interval change compared to the prior examination(s).
--- NOTE | 2018-05-12 11:29 | PN ---
DATE: 05/12/2018 SUBJECTIVE: This 42-year-old female was examined at her bedside in the presence of her nurse, Jennifer Dallas. The patient remains distraught over her recent need for hospitalization for hematochezia and bloody stools. She did undergo an endoscopy that was positive for pancolitis and pseudomembranous colitis and is under going medical treatment with IV Flagyl, oral Protonix, rectal vancomycin and oral vancomycin as recommended by Dr. Vanessa Ayala from GI. PHYSICAL EXAMINATION: VITAL SIGNS: On physical exam this morning her temperature is 97.9, respirations 18, pulse 73 and blood pressure 98/66 with a pulse ox of 98% on room air. Physical exam is unchanged. LABORATORY DATA: White count 7700, hemoglobin 9.9, hematocrit 32.2 and platelets 386,000. PT/INR 1.17 and PTT 31.4. Sodium 138, potassium 4.1, chloride 109, bicarb 23, BUN 4, creatinine 0.6 and random blood sugar 84. All LFTs are normal. IMPRESSION: This is 42-year-old female admitted with hematochezia, bloody stools, pancolitis and pseudomembranous colitis. PLAN: At present is to continue gentle IV fluids of D5 0.9 saline at 70 mL/hour. She will continue on Flagyl 500 mg IV every 8 hours, morphine 1 mg IV every 6 hours p.r.n. severe pain, Protonix 40 mg p.o. daily, vancomycin 250 mg p.o. q.i.d., vancomycin rectal 500 mg q.i.d. and Zofran p.r.n. nausea and vomiting. She will be scheduled for a hepatitis panel celiac disease, comprehensive panel, HIV panel, irritable bowel differentiation panel and C. diff toxin stool as well as stool culture. I will reorder a basic metabolic panel and CBC for the a.m. and the patient will continue at present on a liquid diet as outlined by Dr. Ayala. She is scheduled for an abdominal ultrasound to rule out gallstones and all of the above was reviewed with her nurse at the bedside. She will remain on isolation precautions and this was discussed with her nurse, Jennifer Dallas. Celi Dias MD [facility] # [id number] ETHAN
[2018-05-12] MEDS: Vancomycin 25 MG/ML PO SCH ×5 (11:35→22:03)
[2018-05-12] MEDS: Vancomycin 500 mg (Oral/Rectal USE) PR SCH ×4 (11:35→22:04)
--- NOTE | 2018-05-12 15:11 | CP.PCM.PN ---
<Yonatan Bright - Last Filed: 05/12/18 15:08> Subjective - Date & Time of Evaluation Date of Evaluation: 05/12/18 Time of Evaluation: 15:09 - Subjective Subjective: Still having bloody stool. Denies abdominal pain at this time. complains of nausea improved with zofran. Objective - Vital Signs/Intake and Output Vital Signs (last 24 hours): Temp Pulse Resp BP Pulse Ox 97.9 F 73 18 98/66 L 98 05/12/18 06:00 05/12/18 06:00 05/12/18 06:00 05/12/18 06:00 05/12/18 06:00 Intake and Output: 05/12/18 05/12/18 06:59 18:59 Intake Total 2580 Output Total 1 Balance 2579 - Medications Medications: Current Medications Metronidazole (Flagyl) 500 mg in 100 mls @ 100 mls/hr IVPB Q8 [facility]; Protocol Last Admin: 05/12/18 14:44 Dose: 100 mls/hr Dextrose/Sodium Chloride (Dextrose 5%/0.9% Ns 1000 Ml) 1,000 mls @ 70 mls/hr IV .[id number] [facility] Last Admin: 05/12/18 06:07 Dose: 70 mls/hr Metoclopramide HCl (Reglan) 10 mg IV ONCE PRN PRN Reason: Nausea/Vomiting Morphine Sulfate (Morphine) 1 mg IVP Q6 PRN PRN Reason: Pain, severe (8-10) Ondansetron HCl (Zofran Inj) 4 mg IVP Q6H PRN PRN Reason: Nausea/Vomiting Last Admin: 05/11/18 22:18 Dose: 4 mg Pantoprazole Sodium (Protonix Ec Tab) 40 mg PO 0600 [facility] Vancomycin HCl (Vancocin 25 Mg/Ml (Oral Use)) 250 mg PO QID [facility]; Protocol Last Admin: 05/12/18 14:47 Dose: 250 mg Vancomycin HCl (Vancocin (Oral/Rectal Use)) 500 mg ME QID [facility]; Protocol Last Admin: 05/12/18 14:47 Dose: 500 mg - Labs Labs: 05/11/18 05:30 05/11/18 05:30 PT 13.2 SECONDS (9.4-12.5) H 05/10/18 11:25 INR 1.17 05/10/18 11:25 APTT 31.4 Seconds (26.9-38.3) 05/10/18 11:25 - Constitutional Appears: Non-toxic, No Acute Distress - Head Exam Head Exam: ATRAUMATIC, NORMAL INSPECTION - Respiratory Exam Respiratory Exam: Clear to Ausculation Bilateral, NORMAL BREATHING PATTERN - Cardiovascular Exam Cardiovascular Exam: REGULAR RHYTHM, +S1, +S2 - GI/Abdominal Exam GI & Abdominal Exam: Soft, Normal Bowel Sounds. absent: Tenderness - Extremities Exam Extremities Exam: Normal Inspection. 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 Other differential for colitis should be IBD and infectious. If patient does not improve on appropriate abx therapy, the IBD/infection should be considered more broadly. Plan: Flexible sigmoidoscopy 05/10- pt continues to have stigmata of severe colitis, pseudomembranous colitis. CT 05/14 - Pancolitis , less severe compared to 12/13 C diff stool testing negative however, she has been on treatment and likelihood of C.diff is still high and treatment has not been optimized. FU pathology - r/o IBD, CMV Continue CLD IV Flagyl Vancomycin enemas PO vanco FU celiac panel FU hepatitis panel, HIV FU IBD panel Pain control Recommend fecal transplant next week DW Dr. Ayala, see attestation <Vanessa Ayala V - Last Filed: 05/12/18 23:15> Objective - Vital Signs/Intake and Output Vital Signs (last 24 hours): Temp Pulse Resp BP Pulse Ox 97.5 F L 87 18 129/80 97 05/12/18 18:00 05/12/18 18:00 05/12/18 18:00 05/12/18 18:00 05/12/18 18:00 Intake and Output: 05/12/18 05/13/18 18:59 06:59 Intake Total 1200 Balance 1200 - Medications Medications: Current Medications Metronidazole (Flagyl) 500 mg in 100 mls @ 100 mls/hr IVPB Q8 [facility]; Protocol Last Admin: 05/12/18 22:04 Dose: 100 mls/hr Dextrose/Sodium Chloride (Dextrose 5%/0.9% Ns 1000 Ml) 1,000 mls @ 70 mls/hr IV .[id number] [facility] Last Admin: 05/12/18 06:07 Dose: 70 mls/hr Metoclopramide HCl (Reglan) 10 mg IV ONCE PRN PRN Reason: Nausea/Vomiting Morphine Sulfate (Morphine) 1 mg IVP Q6 PRN PRN Reason: Pain, severe (8-10) Ondansetron HCl (Zofran Inj) 4 mg IVP Q6H PRN PRN Reason: Nausea/Vomiting Last Admin: 05/11/18 22:18 Dose: 4 mg Pantoprazole Sodium (Protonix Ec Tab) 40 mg PO 0600 [facility] Vancomycin HCl (Vancocin 25 Mg/Ml (Oral Use)) 250 mg PO QID [facility]; Protocol Last Admin: 05/12/18 22:03 Dose: 250 mg Vancomycin HCl (Vancocin (Oral/Rectal Use)) 500 mg ME QID [facility]; Protocol Last Admin: 05/12/18 22:04 Dose: 500 mg - Labs Labs: 05/11/18 05:30 05/11/18 05:30 PT 13.2 SECONDS (9.4-12.5) H 05/10/18 11:25 INR 1.17 05/10/18 11:25 APTT 31.4 Seconds (26.9-38.3) 05/10/18 11:25 Attending/Attestation - Attestation I have personally seen and examined this patient.: Yes I have fully participated in the care of the patient.: Yes I have reviewed all pertinent clinical information, including history, physical exam and plan: Yes Notes (Text): This is an addendum to GI progress report dictated by the GI Fellow. The patient was seen and examined earlier. Medical records, lab studies, imagings were reviewed. Last 24 hours events reviewed. Agreed with the above treatment plan as outlined in GI Fellow 's notes with the addition of the following Still complains of bleeding per rectum and loose bowel movements Abdominal pain slightly less On examination abdomen soft mildly tender in the epigastric area and left lower quadrant area Hemoglobin stable Patient did have earlier an episode of low blood pressure Continue IV fluids Awaiting for IBD serology Even though stool for C. difficile negative endoscopy appearance was suggestive of diffuse colitis with pseudomembranes. Sonogram was reviewed no gallstones Abdominal ultrasound reveals no gallstones or gallbladder morphology normal Follow biopsy report of the colon Diet has been advanced to full liquid diet Thank you for allowing us. We will continue to closely follow-up care and suggest further recommendations to participate in the care of the patient based on the clinical course 05/12/18 23:05
[2018-05-13] MEDS: Dextrose 5%/0.9% NS 1,000 ML IV SCH ×2 (04:13→20:52)
[2018-05-13] MEDS: metroNIDAZOLE IV 500 mg/100 ml 500 MG/100 ML BAG IVPB SCH ×2 (05:21→13:22)
[2018-05-13] MEDS: Pantoprazole 40 mg EC Tab PO SCH (05:22)
[2018-05-13 06:59] LABS: HEMOGLOBIN 10.2 g/dL (12.0-16.0); MEAN CELL VOLUME 80.2 fl (80.0-105.0); MEAN CORPUSCULAR HEMOGLOBIN 24.9 pg (25.0-35.0); MEAN CORPUSCULAR HGB CONC 31.1 g/dl (31.0-37.0); MEAN PLATELET VOLUME 8.4 fl (7.0-11.0); RBC 4.09 10^6/uL (3.5-6.1); RED CELL DISTRIBUTION WIDTH 14.7 % (11.5-14.5); WHITE BLOOD COUNT 8.7 10^3/uL (4.5-11.0)
[2018-05-13 07:36] LABS: BLOOD UREA NITROGEN 3 mg/dL (7-21); CALCIUM 8.2 mg/dL (8.4-10.5); GFR NON-AFRICAN AMERICAN > 60
--- NOTE | 2018-05-13 08:33 | CP.PCM.PN ---
<Rick Lennon - Last Filed: 05/13/18 17:19> Subjective - Date & Time of Evaluation Date of Evaluation: 05/13/18 Time of Evaluation: 08:13 - Subjective Subjective: Rick Lennon PGY2 GI Progress Note for Dr. Ayala Patient was seen and examined at bedside. She states that she continues to have bloody loose BM's, but that they have decreased in quantity and her pain is improving. She is tolerating her FLD but is eager to advance it to a regular diet; she was educated on the benefits of bowel rest for her. She understands. Objective - Vital Signs/Intake and Output Vital Signs (last 24 hours): Temp Pulse Resp BP Pulse Ox 98.1 F 76 18 105/71 99 05/13/18 06:00 05/13/18 06:00 05/13/18 06:00 05/13/18 06:00 05/13/18 06:00 Intake and Output: 05/13/18 05/13/18 06:59 18:59 Intake Total 2883 Balance 2883 - Medications Medications: Current Medications Metronidazole (Flagyl) 500 mg in 100 mls @ 100 mls/hr IVPB Q8 [facility]; Protocol Last Admin: 05/13/18 05:21 Dose: 100 mls/hr Dextrose/Sodium Chloride (Dextrose 5%/0.9% Ns 1000 Ml) 1,000 mls @ 70 mls/hr IV .[id number] [facility] Last Admin: 05/13/18 04:13 Dose: 70 mls/hr Metoclopramide HCl (Reglan) 10 mg IV ONCE PRN PRN Reason: Nausea/Vomiting Morphine Sulfate (Morphine) 1 mg IVP Q6 PRN PRN Reason: Pain, severe (8-10) Ondansetron HCl (Zofran Inj) 4 mg IVP Q6H PRN PRN Reason: Nausea/Vomiting Last Admin: 05/11/18 22:18 Dose: 4 mg Pantoprazole Sodium (Protonix Ec Tab) 40 mg PO 0600 [facility] Last Admin: 05/13/18 05:22 Dose: 40 mg Vancomycin HCl (Vancocin 25 Mg/Ml (Oral Use)) 250 mg PO QID [facility]; Protocol Last Admin: 05/12/18 22:03 Dose: 250 mg Vancomycin HCl (Vancocin (Oral/Rectal Use)) 500 mg IA QID [facility]; Protocol Last Admin: 05/12/18 22:04 Dose: 500 mg - Labs Labs: 05/13/18 06:20 05/13/18 06:20 PT 13.2 SECONDS (9.4-12.5) H 05/10/18 11:25 INR 1.17 05/10/18 11:25 APTT 31.4 Seconds (26.9-38.3) 05/10/18 11:25 - Constitutional Appears: Well, Non-toxic, No Acute Distress - Head Exam Head Exam: ATRAUMATIC, NORMAL INSPECTION - Eye Exam Eye Exam: EOMI, Normal appearance, PERRL - ENT Exam ENT Exam: Mucous Membranes Moist, Normal Exam - Neck Exam Neck Exam: Full ROM, Normal Inspection - Respiratory Exam Respiratory Exam: NORMAL BREATHING PATTERN. absent: Respiratory Distress - Cardiovascular Exam Cardiovascular Exam: RRR, +S1, +S2 - GI/Abdominal Exam GI & Abdominal Exam: Soft, Normal Bowel Sounds. 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 Other differential for colitis should be IBD and infectious. If patient does not improve on appropriate abx therapy, the IBD/infection should be considered more broadly. Patient is s/p flex-sig 05/10 showing severe colitis, pseudomembranous colitis. CT abd reviewed. Plan: C.diff stool testing negative however, she has been on treatment and likelihood of C.diff is still high and treatment has not been optimized c.diff PCR pending FU pathology - r/o IBD, CMV Continue FLD for bowel rest IV Flagyl Vancomycin enemas PO vanco FU celiac panel FU hepatitis panel, HIV FU IBD panel Pain control Recommend fecal transplant next week Case was reviewed and discussed with Dr. Rivera <Vanessa Ayala V - Last Filed: 05/13/18 19:26> Objective - Vital Signs/Intake and Output Vital Signs (last 24 hours): Temp Pulse Resp BP Pulse Ox 98.1 F 110 H 19 158/75 H 97 05/13/18 16:58 05/13/18 18:00 05/13/18 16:58 05/13/18 16:58 05/13/18 16:58 - Medications Medications: Current Medications Dextrose/Sodium Chloride (Dextrose 5%/0.9% Ns 1000 Ml) 1,000 mls @ 70 mls/hr IV .[id number] [facility] Last Admin: 05/13/18 04:13 Dose: 70 mls/hr Metoclopramide HCl (Reglan) 10 mg IV ONCE PRN PRN Reason: Nausea/Vomiting Morphine Sulfate (Morphine) 1 mg IVP Q6 PRN PRN Reason: Pain, severe (8-10) Ondansetron HCl (Zofran Inj) 4 mg IVP Q6H PRN PRN Reason: Nausea/Vomiting Last Admin: 05/13/18 09:40 Dose: 4 mg Pantoprazole Sodium (Protonix Ec Tab) 40 mg PO 0600 [facility] Last Admin: 05/13/18 05:22 Dose: 40 mg Vancomycin HCl (Vancocin 25 Mg/Ml (Oral Use)) 250 mg PO QID [facility]; Protocol Last Admin: 05/13/18 17:33 Dose: 250 mg Vancomycin HCl (Vancocin (Oral/Rectal Use)) 500 mg IA QID [facility]; Protocol Last Admin: 05/13/18 17:33 Dose: 500 mg - Labs Labs: 05/13/18 06:20 05/13/18 06:20 PT 13.2 SECONDS (9.4-12.5) H 05/10/18 11:25 INR 1.17 05/10/18 11:25 APTT 31.4 Seconds (26.9-38.3) 05/10/18 11:25 Attending/Attestation - Attestation I have personally seen and examined this patient.: Yes I have fully participated in the care of the patient.: Yes I have reviewed all pertinent clinical information, including history, physical exam and plan: Yes Notes (Text): The patient was seen and evaluated earlier. This is an addendum to the GI progress report dictated by the director of medical services. Patient is on full liquid diet feeling much better still complains of bright red blood per rectum but she says the amount is decreasing Clinically this patient had a pseudomembranous colitis C. difficile colitis. However stool for C. difficile negative Review of the patient's chart showed that patient was hospitalized in the past with the ileitis with elevated ASCA titers suggestive of possible IBD. However the colon biopsy did not reveal in the past cryptitis. Repeat biopsy pending We will follow-up IBD serology Continue the present regiment of treatment as patient has been slowly improving 05/13/18 19:23
[2018-05-13] MEDS: Vancomycin 25 MG/ML PO SCH ×4 (09:40→22:53)
[2018-05-13] MEDS: Vancomycin 500 mg (Oral/Rectal USE) PR SCH ×4 (11:33→22:53)
[2018-05-14] MEDS: Pantoprazole 40 mg EC Tab PO SCH (05:26)
--- NOTE | 2018-05-14 07:57 | CP.PCM.PN ---
<Rick Lennon - Last Filed: 05/14/18 11:48> Subjective - Date & Time of Evaluation Date of Evaluation: 05/14/18 Time of Evaluation: 07:37 - Subjective Subjective: Rick Lennon PGY2 GI Progress Note for Dr. Ayala Patient was seen and examined at bedside. She states that she continues to have loose stools although they are less frequent and her abdominal pain has improved significantly since arrival. She denies any fevers/chills, nausea/vomiting and is tolerating her diet well. Objective - Vital Signs/Intake and Output Vital Signs (last 24 hours): Temp Pulse Resp BP Pulse Ox 98.1 F 76 19 158/75 H 97 05/13/18 16:58 05/14/18 05:58 05/13/18 16:58 05/13/18 16:58 05/13/18 16:58 Intake and Output: 05/14/18 05/14/18 06:59 18:59 Intake Total 2640 Balance 2640 - Medications Medications: Current Medications Dextrose/Sodium Chloride (Dextrose 5%/0.9% Ns 1000 Ml) 1,000 mls @ 70 mls/hr IV .[id number] [facility] Last Admin: 05/13/18 20:52 Dose: 70 mls/hr Metoclopramide HCl (Reglan) 10 mg IV ONCE PRN PRN Reason: Nausea/Vomiting Morphine Sulfate (Morphine) 1 mg IVP Q6 PRN PRN Reason: Pain, severe (8-10) Ondansetron HCl (Zofran Inj) 4 mg IVP Q6H PRN PRN Reason: Nausea/Vomiting Last Admin: 05/13/18 09:40 Dose: 4 mg Pantoprazole Sodium (Protonix Ec Tab) 40 mg PO 0600 [facility] Last Admin: 05/14/18 05:26 Dose: 40 mg Vancomycin HCl (Vancocin 25 Mg/Ml (Oral Use)) 250 mg PO QID [facility]; Protocol Last Admin: 05/13/18 22:53 Dose: 250 mg Vancomycin HCl (Vancocin (Oral/Rectal Use)) 500 mg TN QID [facility]; Protocol Last Admin: 05/13/18 22:53 Dose: 500 mg - Labs Labs: 05/13/18 06:20 05/13/18 06:20 PT 13.2 SECONDS (9.4-12.5) H 05/10/18 11:25 INR 1.17 05/10/18 11:25 APTT 31.4 Seconds (26.9-38.3) 05/10/18 11:25 - Constitutional Appears: Well, Non-toxic, No Acute Distress - Head Exam Head Exam: ATRAUMATIC, NORMAL INSPECTION - Eye Exam Eye Exam: EOMI, Normal appearance, PERRL - ENT Exam ENT Exam: Mucous Membranes Moist, Normal Exam - Neck Exam Neck Exam: Full ROM, Normal Inspection - Respiratory Exam Respiratory Exam: NORMAL BREATHING PATTERN. absent: Respiratory Distress - Cardiovascular Exam Cardiovascular Exam: RRR, +S1, +S2 - GI/Abdominal Exam GI & Abdominal Exam: Soft, Normal Bowel Sounds. 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 Other differential for colitis should be IBD and infectious. If patient does not improve on appropriate abx therapy, the IBD/ infection should be considered more broadly. Patient is s/p flex-sig 05/10 showing severe colitis, pseudomembranous colitis. CT abd reviewed. Plan: - C.diff stool testing negative however, she has been on treatment and likelihood of C.diff is still high and treatment has not been optimized - c.diff PCR pending - FU pathology - r/o IBD, CMV - Advanced diet to low-fat/low-fiber soft diet - IV Flagyl - Vancomycin enemas - PO vanco - FU celiac panel - FU IBD panel - Pain control - Patient could be candidate for fecal transplant Case was reviewed and discussed with Dr. Rivera <Vanessa Ayala V - Last Filed: 05/14/18 21:22> Objective - Vital Signs/Intake and Output Vital Signs (last 24 hours): Temp Pulse Resp BP Pulse Ox 98.9 F 86 19 92/60 L 98 05/14/18 16:36 05/14/18 16:36 05/14/18 16:36 05/14/18 16:36 05/14/18 16:36 - Medications Medications: Current Medications Dextrose/Sodium Chloride (Dextrose 5%/0.9% Ns 1000 Ml) 1,000 mls @ 70 mls/hr IV .[id number] [facility] Last Admin: 05/14/18 15:32 Dose: 70 mls/hr Metoclopramide HCl (Reglan) 10 mg IV ONCE PRN PRN Reason: Nausea/Vomiting Morphine Sulfate (Morphine) 1 mg IVP Q6 PRN PRN Reason: Pain, severe (8-10) Ondansetron HCl (Zofran Inj) 4 mg IVP Q6H PRN PRN Reason: Nausea/Vomiting Last Admin: 05/13/18 09:40 Dose: 4 mg Pantoprazole Sodium (Protonix Ec Tab) 40 mg PO 0600 [facility] Last Admin: 05/14/18 05:26 Dose: 40 mg Vancomycin HCl (Vancocin 25 Mg/Ml (Oral Use)) 250 mg PO QID [facility]; Protocol Last Admin: 05/14/18 18:35 Dose: 250 mg Vancomycin HCl (Vancocin (Oral/Rectal Use)) 500 mg TN QID [facility]; Protocol Last Admin: 05/14/18 18:34 Dose: 500 mg - Labs Labs: 05/13/18 06:20 05/13/18 06:20 PT 13.2 SECONDS (9.4-12.5) H 05/10/18 11:25 INR 1.17 05/10/18 11:25 APTT 31.4 Seconds (26.9-38.3) 05/10/18 11:25 Attending/Attestation - Attestation I have personally seen and examined this patient.: Yes I have fully participated in the care of the patient.: Yes I have reviewed all pertinent clinical information, including history, physical exam and plan: Yes Notes (Text): This is an addendum to the GI progress report dictated by the medical front desk coordinator. Patient was seen and evaluated with resident earlier today. Patient is feeling slightly better still has episodes of bleeding per rectum and diarrhea. Abdominal discomfort has decreased. Path report was reviewed. Patient does have cryptitis. Possibility of IBD has to be considered in this patient. Patient did have a previous IBD serology showed an elevated ASCA levels. Repeat IBD serology done this admission is still pending Patient did have stool for C. difficile positive in the past this admission it was negative however flexible sigmoidoscopy revealed pseudomembranes The possibility this patient have concomitant C. difficile in the background of IBD has to be considered. We will start the patient on Asacol 800 mg p.o. 3 times daily We will start Rowasa enemas and decrease vancomycin enema I have discussed with the Dr. Dias earlier today Discussed with the patient and also nursing staff at length Thank you very much Dr. Dias for allowing us to participate in the care of the patient. We will continue to closely follow-up at care and suggest further recommendations based on the clinical course 05/14/18 21:17
--- NOTE | 2018-05-14 09:16 | PN ---
DATE: 05/14/2018 SUBJECTIVE: This 42-year-old female was examined at her bedside on the afternoon of 05/13/2018. This case was reviewed in detail with nurse, Yumiko Desai registered nurse. The patient was seen earlier today by Dr. Vanessa Ayala from GI. He has discussed in detail and I have further reviewed with the patient that in the setting of continued bloody loose bowel movements, she will continue on liquid diet only. Although the bowel movements have decreased in quantity and her pain is improving, she has been recommended to stay on liquids regarding the benefit of bowel rest. The patient understands and this was reinforced during my visit as well. PHYSICAL EXAMINATION: VITAL SIGNS: At the time of my interview, her exam shows temperature 98.5, respirations 18, pulse 73 and blood pressure 105/71. Pulse ox 99% room air. HEENT: Head normocephalic, atraumatic. Eyes: No icterus. Ears: Clear. Throat: Noninjected. NECK: Supple. HEART: S1 and S2. LUNGS: Clear. ABDOMEN: Soft. No rebound, no guarding. No tenderness. EXTREMITIES: No edema. SKIN: Without rash. NEUROLOGIC: Intact. PSYCHOLOGIC: Anxious. VASCULAR: Legs warm to touch. LABORATORY DATA: White count 8700, hemoglobin 10.2, hematocrit 32.8, platelets 429,000. PT/INR 1.17, PTT 31.4. Sodium 140, K 3.8, chloride 108, bicarb 25, BUN 3, creatinine 0.6, random blood sugar 86 with a calcium of 8.2. All liver function testing was normal including bilirubin 0.2, AST 22, ALT 11 and alk phos 87. Hepatitis A, B and C negative. HIV antigen and antibody fourth generation nonreactive. Stool culture show no Salmonella, Shigella, or Campylobacter. Stool for C. Diff antigen and toxin both negative. IMPRESSION: A 42-year-old female with pancolitis and history of Clostridium difficile toxin colitis in her past, now admitted with recurrent bloody bowel movements and endoscopy sigmoidoscopy confirming erosions and pancolitis of her sigmoid colon. PLAN: The plan is discussed with nursing and the patient will be to continue IV fluids of D5 0.9 saline at 70 mL/hour. The patient will continue on Protonix 40 mg p.o. daily, morphine 1 mg IV every 6 hours p.r.n. severe pain, vancomycin 500 mg per rectum four times a day and vancomycin 250 mg p.o. four times a day with Zofran ordered 4 mg IV every 6 hours p.r.n. nausea, vomiting. She will continue on her liquid diet. She is still awaiting resulting of her celiac disease, comprehensive metabolic panel, IBD irritable bowel disease differentiation panel, and pathology biopsy results of her colonoscopy. She remains on isolation precautions and greater than 35 minutes was spent in the care management, discussion of this patient with herself and nursing and Dr. Vanessa Ayala. All questions were answered. Celi Dias MD
[2018-05-14] MEDS: Vancomycin 500 mg (Oral/Rectal USE) PR SCH ×2 (11:30→18:34)
[2018-05-14] MEDS: Vancomycin 25 MG/ML PO SCH ×4 (11:33→22:13)
--- NOTE | 2018-05-14 12:28 | PN ---
DATE: 05/14/2018 SUBJECTIVE: This 42-year-old female was examined at her bedside on the morning of Monday, May 14, 2018. Present for this interview was nurse, Mercy Bernard, registered nurse. This case was reviewed in detail with Dr. Vanessa Ayala from . Surprisingly, her stool C. Diff toxins are negative for antigen and toxin, however, Dr. Ayala desires to continue oral vancomycin treatment pending pathology biopsy results of his recent sigmoidoscopy. OBJECTIVE: GENERAL: The patient complains of persistent bloody bowel movements. VITAL SIGNS: Her temperature is 98.3, respirations 18, pulse 80 and blood pressure 113/75 with a pulse ox of 98%. HEENT: Head: Normocephalic, atraumatic. Eyes: No icterus. Ears: Clear. Throat: Noninjected. NECK: Supple. HEART: Regular S1 and S2. LUNGS: Clear. ABDOMEN: Soft. No rebound, no guarding. No tenderness. EXTREMITIES: No edema. SKIN: Without rash. NEUROLOGICAL: Intact. PSYCHOLOGICAL: Anxious. VASCULAR: Legs warm to touch. LABORATORY DATA: White count 8700, hemoglobin 10.2, hematocrit 32.8, platelets 429,000. Sodium 140, K 3.8, chloride 108, bicarb 25, BUN 3, creatinine 0.6, random blood sugar 86, calcium 8.2. PT/INR 1.17, PTT 31.4. Hepatitis A, B, C panels negative. HIV serology negative. IMPRESSION AND PLAN: A 42-year-old female with pérez colitis, rule out irritable bowel disease, rule out ulcerative colitis, rule out Clostridium difficile toxin colitis, chronic anxiety, bloody bowel movements, anemia of acute illness, chronic anxiety. As discussed with the patient, nursing and Dr. Vanessa Ayala from , we will await the pathology biopsy results of recent endoscopy and are in the process of differentiating the clinical diagnosis of Crohn's versus ulcerative colitis versus stool Clostridium difficile toxin colitis. The patient will continue on D5 0.9 saline at 70 mL/hour, Protonix 40 mg p.o. daily vancomycin 500 mg per rectum four times daily, vancomycin 250 mg p.o. four times daily with a liquid diet as outlined by Dr. Ayala and further workup per his discussion. Greater than 35 minutes was spent in the care management, review of labs, orders and x-rays and discussion of this patient with herself, Dr. Ayala and nursing. All questions were answered. Celi Dias MD [email or web address]
[2018-05-14] MEDS: Dextrose 5%/0.9% NS 1,000 ML IV SCH (15:32)
[2018-05-15] MEDS: Morphine 2 mg/ml ISec IVP PRN (01:37)
[2018-05-15] MEDS: Pantoprazole 40 mg EC Tab PO SCH (05:38)
[2018-05-15 07:10] LABS: HEMOGLOBIN 9.9 g/dL (12.0-16.0); MEAN CORPUSCULAR HEMOGLOBIN 24.5 pg (25.0-35.0); MEAN CORPUSCULAR HGB CONC 30.7 g/dl (31.0-37.0); MEAN PLATELET VOLUME 8.3 fl (7.0-11.0); RBC 4.04 10^6/uL (3.5-6.1); RED CELL DISTRIBUTION WIDTH 14.7 % (11.5-14.5); WHITE BLOOD COUNT 9.2 10^3/uL (4.5-11.0)
[2018-05-15 07:23] LABS: ALB/GLOB RATIO 0.8 (1.1-1.8); ALBUMIN 2.8 g/dL (3.0-4.8); ALT/SGPT 9 U/L (7-56); AST/SGOT 29 U/L (14-36); BLOOD UREA NITROGEN 4 mg/dL (7-21); CALCIUM 8.2 mg/dL (8.4-10.5); GFR NON-AFRICAN AMERICAN > 60
[2018-05-15] MEDS: Vancomycin 25 MG/ML PO SCH ×4 (10:14→21:40)
[2018-05-15] MEDS: Vancomycin 500 mg (Oral/Rectal USE) PR SCH ×3 (10:14→20:48)
[2018-05-15] MEDS: Mesalamine 800 mg DR Tab PO SCH ×3 (10:14→18:03)
--- NOTE | 2018-05-15 12:22 | CP.PCM.PN ---
<Rick Lennon - Last Filed: 05/15/18 17:15> Subjective - Date & Time of Evaluation Date of Evaluation: 05/15/18 Time of Evaluation: 07:22 - Subjective Subjective: Rick Lennon PGY2 GI Progress Note for Dr. Ayala Patient was seen and examined at bedside. Patient is tolerating her advanced diet well, and states that her abdominal pain has improved. Patient had loose stools but much less than before. She denies any fevers/chills, nausea/vomiting and is tolerating her diet well. Objective - Vital Signs/Intake and Output Vital Signs (last 24 hours): Temp Pulse Resp BP Pulse Ox 97.9 F 99 H 18 119/80 98 05/15/18 08:40 05/15/18 10:00 05/15/18 08:40 05/15/18 08:40 05/15/18 08:40 - Medications Medications: Current Medications Acetaminophen (Tylenol 325mg Tab) 650 mg PO Q6H PRN PRN Reason: pain Dextrose/Sodium Chloride (Dextrose 5%/0.9% Ns 1000 Ml) 1,000 mls @ 70 mls/hr IV .[id number] [facility] Last Admin: 05/14/18 15:32 Dose: 70 mls/hr Mesalamine (Asacol Hd 800mg) 800 mg PO TID [facility] Last Admin: 05/15/18 10:14 Dose: 800 mg Metoclopramide HCl (Reglan) 10 mg IV ONCE PRN PRN Reason: Nausea/Vomiting Morphine Sulfate (Morphine) 1 mg IVP Q6 PRN PRN Reason: Pain, severe (8-10) Last Admin: 05/15/18 01:37 Dose: 1 mg Ondansetron HCl (Zofran Inj) 4 mg IVP Q6H PRN PRN Reason: Nausea/Vomiting Last Admin: 05/13/18 09:40 Dose: 4 mg Pantoprazole Sodium (Protonix Ec Tab) 40 mg PO 0600 [facility] Last Admin: 05/15/18 05:38 Dose: 40 mg Vancomycin HCl (Vancocin 25 Mg/Ml (Oral Use)) 250 mg PO QID [facility]; Protocol Last Admin: 05/15/18 10:14 Dose: 250 mg Vancomycin HCl (Vancocin (Oral/Rectal Use)) 500 mg FL QID [facility]; Protocol Last Admin: 05/15/18 10:14 Dose: 500 mg - Labs Labs: 05/15/18 06:10 05/15/18 06:10 PT 13.2 SECONDS (9.4-12.5) H 05/10/18 11:25 INR 1.17 05/10/18 11:25 APTT 31.4 Seconds (26.9-38.3) 05/10/18 11:25 - Constitutional Appears: Well, Non-toxic, No Acute Distress - Head Exam Head Exam: ATRAUMATIC, NORMAL INSPECTION - Eye Exam Eye Exam: EOMI, Normal appearance, PERRL - ENT Exam ENT Exam: Mucous Membranes Moist, Normal Exam - Neck Exam Neck Exam: Full ROM, Normal Inspection - Respiratory Exam Respiratory Exam: NORMAL BREATHING PATTERN. absent: Respiratory Distress - Cardiovascular Exam Cardiovascular Exam: RRR, +S1, +S2 - GI/Abdominal Exam GI & Abdominal Exam: Soft, Normal Bowel Sounds. 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 Other differential for colitis should be IBD and infectious. Patient likely has underlying inflammatory bowel disease with colonizing c.diff infection. Patient is s/p flex-sig 05/10 showing severe colitis, pseudomembranous colitis. CT abd reviewed. celiac disease serology is negative. 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 Plan: - C.diff stool testing negative however, she has been on treatment and likelihood of C.diff is still high and treatment has not been optimized - c.diff PCR pending - FU pathology - r/o IBD, CMV - cont diet as tolerated (low-fat/low-fiber soft diet) - PO vanco - IV Flagyl - Vancomycin enemas decreased to BID as mesalamine enemas started and symptoms improving - Mesalamine PO and FL started - will order TPMT activity and Quanteferon tests in case we need to start biologics or thiopurines in future to avoid complications - FU IBD panel - Pain control - Patient could be candidate for fecal transplant Case was reviewed and discussed with Dr. Rivera <Vanessa Ayala V - Last Filed: 05/15/18 19:30> Objective - Vital Signs/Intake and Output Vital Signs (last 24 hours): Temp Pulse Resp BP Pulse Ox 98.3 F 70 20 104/71 95 05/15/18 17:12 05/15/18 18:00 05/15/18 17:12 05/15/18 17:12 05/15/18 17:12 Intake and Output: 05/15/18 05/16/18 18:59 06:59 Intake Total 1260 Balance 1260 - Medications Medications: Current Medications Acetaminophen (Tylenol 325mg Tab) 650 mg PO Q6H PRN PRN Reason: pain Enoxaparin Sodium (Lovenox) 40 mg SC DAILY [facility]; Protocol Last Admin: 05/15/18 18:09 Dose: Not Given Dextrose/Sodium Chloride (Dextrose 5%/0.9% Ns 1000 Ml) 1,000 mls @ 70 mls/hr IV .[id number] [facility] Last Admin: 05/14/18 15:32 Dose: 70 mls/hr Mesalamine (Asacol Hd 800mg) 800 mg PO TID [facility] Last Admin: 05/15/18 18:03 Dose: 800 mg Mesalamine (Rowasa Enema) 4 gm RC HS [facility] Metoclopramide HCl (Reglan) 10 mg IV ONCE PRN PRN Reason: Nausea/Vomiting Morphine Sulfate (Morphine) 1 mg IVP Q6 PRN PRN Reason: Pain, severe (8-10) Last Admin: 05/15/18 01:37 Dose: 1 mg Ondansetron HCl (Zofran Inj) 4 mg IVP Q6H PRN PRN Reason: Nausea/Vomiting Last Admin: 05/13/18 09:40 Dose: 4 mg Pantoprazole Sodium (Protonix Ec Tab) 40 mg PO 0600 [facility] Last Admin: 05/15/18 05:38 Dose: 40 mg Vancomycin HCl (Vancocin 25 Mg/Ml (Oral Use)) 250 mg PO QID [facility]; Protocol Last Admin: 05/15/18 18:03 Dose: 250 mg Vancomycin HCl (Vancocin (Oral/Rectal Use)) 500 mg FL BID [facility]; Protocol Last Admin: 05/15/18 18:05 Dose: Not Given - Labs Labs: 05/15/18 06:10 05/15/18 06:10 PT 13.2 SECONDS (9.4-12.5) H 05/10/18 11:25 INR 1.17 05/10/18 11:25 APTT 31.4 Seconds (26.9-38.3) 05/10/18 11:25 Attending/Attestation - Attestation I have personally seen and examined this patient.: Yes I have fully participated in the care of the patient.: Yes I have reviewed all pertinent clinical information, including history, physical exam and plan: Yes Notes (Text): This patient was seen and evaluated with the medical billing service caryl. This is an addendum to the GI progress report dictated by the resident. Patient is to lerating diet. He complains of bleeding per rectum. Now she says the stool is more formed. Path report was reviewed suggestive of cryptitis. Clinically this patient has probably C. difficile colitis in view of the pseudomembranes and history of stool for antigen positive toxin positive in the past On p.o. Vanco and rectal Vanco enema which has been now cut down the dose Patient is also on IV Flagyl Patient was started on Asacol. Awaiting for IBD serology Would request QuantiFERON gold, and also TPMT assay Patient is on also Rowasa enemas. Discussed with the nursing staff to train the patient to self administer was enema 05/15/18 19:27
--- NOTE | 2018-05-15 14:05 | PN ---
DATE: 05/15/2018 SUBJECTIVE: This 42-year-old female was examined at her bedside in the presence of her nurse, Sudheer Christianson, registered nurse and case was reviewed in detail with the patient at bedside with nurse Sammy. The patient is currently having her diet advanced by Dr. Vanessa Ayala. To date, her sigmoid biopsies performed during sigmoidoscopy remain pending and the patient is tolerating vancomycin enemas as well as oral vancomycin and IV fluids. She has been started on Asacol 800 mg p.o. t.i.d. pending pathological report and is continued on D5 0.9 saline at 70 mL/hour. PHYSICAL EXAMINATION: GENERAL: She is in normal sinus rhythm. VITAL SIGNS: Temperature of 97.9, respirations 18, pulse 88 and blood pressure 119/80 with a pulse ox of 98%. HEENT: Head: Normocephalic, atraumatic. Eyes: No icterus. Ears: Clear. Throat noninjected. NECK: Supple. HEART: S1 and S2. LUNGS: Clear. ABDOMEN: Soft. EXTREMITIES: No edema. SKIN: Without rash. NEUROLOGIC: Intact. PSYCHOLOGIC: Alert and anxious. VASCULAR: Legs warm to touch. LABORATORY DATA: White count 9200, hemoglobin 9.9, hematocrit 32.3, platelets 420,000. PT/INR 1.17, PTT 31.4. Sodium 138, K 3.7, chloride 107, bicarb 25, BUN 4, creatinine 0.5, random blood sugar 94, bilirubin less than 0.1, AST 29, ALT 9, and alk phos 81. Hepatitis A,B,C serologies are negative and HIV serology is nonreactive. IMPRESSION: A 42-year-old female with pancolitis, rule out Clostridium difficile toxin colitis despite negative Clostridium difficile toxin antigen and antibody, rule out ulcerative colitis, rule out Crohn disease. PLAN: The plan is to continue Asacol 800 mg p.o. t.i.d., D5 0.9 saline at 70 mL/hour, Protonix 40 mg p.o. daily, Tylenol 650 p.o. every 6 hours p.r.n. pain or temperature greater than 101, vancomycin 250 mg p.o. four times a day and vancomycin 500 mg per rectum four times a day. Based on her clinical progress, additional diagnostic workup and testing will be entertained. The patient is followed daily by Dr. Ayala from with whom I have discussed this case in detail. Greater than 35 minutes was spent in her care and discussion at her bedside today. All questions were answered. Celi Dias MD
[2018-05-15] MEDS: Enoxaparin 40 mg Syringe SC SCH (18:09)
[2018-05-16] MEDS: Pantoprazole 40 mg EC Tab PO SCH (06:12)
--- NOTE | 2018-05-16 08:06 | CP.PCM.PN ---
<Rick Lennon - Last Filed: 05/16/18 12:08> Subjective - Date & Time of Evaluation Date of Evaluation: 05/16/18 Time of Evaluation: 07:06 - Subjective Subjective: Rick Lennon PGY2 GI Progress Note for Dr. Ayala Patient was seen and examined at bedside. Patient is tolerating her advanced diet well, and states that her abdominal pain has improved. BM's have decreased in frequency and are less loose She denies any fevers/chills, nausea/vomiting and is tolerating her diet well. Objective - Vital Signs/Intake and Output Vital Signs (last 24 hours): Temp Pulse Resp BP Pulse Ox 98.7 F 75 20 101/69 98 05/16/18 00:00 05/16/18 06:00 05/16/18 00:00 05/16/18 00:00 05/16/18 00:00 Intake and Output: 05/16/18 05/16/18 06:59 18:59 Intake Total 820 Balance 820 - Medications Medications: Current Medications Acetaminophen (Tylenol 325mg Tab) 650 mg PO Q6H PRN PRN Reason: pain Enoxaparin Sodium (Lovenox) 40 mg SC DAILY [facility]; Protocol Last Admin: 05/15/18 18:09 Dose: Not Given Dextrose/Sodium Chloride (Dextrose 5%/0.9% Ns 1000 Ml) 1,000 mls @ 70 mls/hr IV .[id number] [facility] Last Admin: 05/14/18 15:32 Dose: 70 mls/hr Mesalamine (Asacol Hd 800mg) 800 mg PO TID [facility] Last Admin: 05/15/18 18:03 Dose: 800 mg Mesalamine (Rowasa Enema) 4 gm RC HS [facility] Last Admin: 05/15/18 22:57 Dose: 4 gm Metoclopramide HCl (Reglan) 10 mg IV ONCE PRN PRN Reason: Nausea/Vomiting Morphine Sulfate (Morphine) 1 mg IVP Q6 PRN PRN Reason: Pain, severe (8-10) Last Admin: 05/15/18 01:37 Dose: 1 mg Ondansetron HCl (Zofran Inj) 4 mg IVP Q6H PRN PRN Reason: Nausea/Vomiting Last Admin: 05/13/18 09:40 Dose: 4 mg Pantoprazole Sodium (Protonix Ec Tab) 40 mg PO 0600 [facility] Last Admin: 05/16/18 06:12 Dose: 40 mg Vancomycin HCl (Vancocin 25 Mg/Ml (Oral Use)) 250 mg PO QID [facility]; Protocol Last Admin: 05/15/18 21:40 Dose: 250 mg Vancomycin HCl (Vancocin (Oral/Rectal Use)) 500 mg [place] BID [facility]; Protocol Last Admin: 05/15/18 20:48 Dose: 500 mg - Labs Labs: 05/15/18 06:10 05/15/18 06:10 PT 13.2 SECONDS (9.4-12.5) H 05/10/18 11:25 INR 1.17 05/10/18 11:25 APTT 31.4 Seconds (26.9-38.3) 05/10/18 11:25 - Constitutional Appears: Well, Non-toxic, No Acute Distress - Head Exam Head Exam: ATRAUMATIC, NORMAL INSPECTION - Eye Exam Eye Exam: EOMI, Normal appearance, PERRL - ENT Exam ENT Exam: Mucous Membranes Moist, Normal Exam - Neck Exam Neck Exam: Full ROM, Normal Inspection - Respiratory Exam Respiratory Exam: NORMAL BREATHING PATTERN. absent: Respiratory Distress - Cardiovascular Exam Cardiovascular Exam: RRR, +S1, +S2 - GI/Abdominal Exam GI & Abdominal Exam: Soft, Normal Bowel Sounds. 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 Other differential for colitis should be IBD and infectious. Patient likely has underlying inflammatory bowel disease with colonizing c.diff infection. Patient is s/p flex-sig 05/10 showing severe colitis, pseudomembranous colitis. CT abd reviewed. celiac disease and c.diff serologies are negative. 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 Plan: - C.diff stool testing negative however, she has been on treatment and likelihood of C.diff is still high and treatment has not been optimized - FU IBD, CMV serologies - cont diet as tolerated (low-fat/low-fiber soft diet) even as outpatient until symptoms resolve - cont PO vanco - IV flagyl stopped - Vancomycin enemas stopped as mesalamine enemas started and symptoms improving - cont Mesalamine PO and MI - ordered TPMT activity and Quanteferon tests in case we need to start biologics or thiopurines in future to avoid complications - started on DVT ppx as she is high risk for DVT's given her IBD dx - Pain control - Upon discharge, patient should continue low-fat/low-fiber soft diet, and cont Vancomycin PO QID for 2 more weeks, Mesalamine PO and MI as current regimen. Patient should follow-up with Dr. Ayala within 1 week of discharge. - Patient could be candidate for fecal transplant Case was reviewed and discussed with Dr. Rivera <Vanessa Ayala V - Last Filed: 05/16/18 19:44> Objective - Vital Signs/Intake and Output Vital Signs (last 24 hours): Temp Pulse Resp BP Pulse Ox 98.6 F 78 18 95/67 L 97 05/16/18 09:01 05/16/18 09:01 05/16/18 09:01 05/16/18 09:01 05/16/18 09:01 - Medications Medications: Current Medications Acetaminophen (Tylenol 325mg Tab) 650 mg PO Q6H PRN PRN Reason: pain Enoxaparin Sodium (Lovenox) 40 mg SC DAILY [facility]; Protocol Last Admin: 05/16/18 09:08 Dose: 40 mg Dextrose/Sodium Chloride (Dextrose 5%/0.9% Ns 1000 Ml) 1,000 mls @ 70 mls/hr IV .[id number] [facility] Last Admin: 05/16/18 13:50 Dose: 70 mls/hr Mesalamine (Asacol Hd 800mg) 800 mg PO TID [facility] Last Admin: 05/16/18 17:02 Dose: 800 mg Mesalamine (Rowasa Enema) 4 gm RC HS [facility] Last Admin: 05/15/18 22:57 Dose: 4 gm Morphine Sulfate (Morphine) 1 mg IVP Q6 PRN PRN Reason: Pain, severe (8-10) Last Admin: 05/15/18 01:37 Dose: 1 mg Ondansetron HCl (Zofran Inj) 4 mg IVP Q6H PRN PRN Reason: Nausea/Vomiting Last Admin: 05/13/18 09:40 Dose: 4 mg Pantoprazole Sodium (Protonix Ec Tab) 40 mg PO 0600 [facility] Last Admin: 05/16/18 06:12 Dose: 40 mg Vancomycin HCl (Vancocin 25 Mg/Ml (Oral Use)) 250 mg PO QID [facility]; Protocol Last Admin: 05/16/18 17:02 Dose: 250 mg - Labs Labs: 05/15/18 06:10 05/15/18 06:10 PT 13.2 SECONDS (9.4-12.5) H 05/10/18 11:25 INR 1.17 05/10/18 11:25 APTT 31.4 Seconds (26.9-38.3) 05/10/18 11:25 Attending/Attestation - Attestation I have personally seen and examined this patient.: Yes I have fully participated in the care of the patient.: Yes I have reviewed all pertinent clinical information, including history, physical exam and plan: Yes Notes (Text): This patient was seen and evaluated along with the resident here earlier. This is an addendum to the GI progress report dictated by the resident. Patient has been feeling better. However she is concerned about the persistent bleeding per rectum. Stools are becoming more firmer. IBD serology revealed mild elevated ASCA IgG titer. C-reactive disease profile negative. Biopsy of the sigmoid suggestive of cryptitis Probably this patient has combination of background inflammatory bowel disease with over added C. difficile colitis Rowasa enemas and at nighttime 2. Reduce the dose of vancomycin and monitor twice daily 3. Continue Asacol 800 mg p.o. 3 times daily 5. Advance diet low residual soft 6. Patient need to complete longer term vancomycin therapy in view of the recurrent C. difficile 7. No plan for fecal transplant as clinically patient is improving with the respect to C. difficile colitis 05/16/18 19:33
[2018-05-16 09:02] VITALS: TEMP 98.6
[2018-05-16] MEDS: Mesalamine 800 mg DR Tab PO SCH ×3 (09:08→17:02)
[2018-05-16] MEDS: Enoxaparin 40 mg Syringe SC SCH (09:08)
[2018-05-16] MEDS: Vancomycin 500 mg (Oral/Rectal USE) PR SCH (09:09)
[2018-05-16] MEDS: Vancomycin 25 MG/ML PO SCH ×3 (09:10→17:02)
[2018-05-16] MEDS: Dextrose 5%/0.9% NS 1,000 ML IV SCH ×2 (13:50→21:35)
[2018-05-17] MEDS: Morphine 2 mg/ml ISec IVP PRN (01:47)
[2018-05-17] MEDS: Pantoprazole 40 mg EC Tab PO SCH (06:10)
--- NOTE | 2018-05-17 07:24 | CP.PCM.PN ---
<Rick Lennon - Last Filed: 05/17/18 10:18> Subjective - Date & Time of Evaluation Date of Evaluation: 05/17/18 Time of Evaluation: 06:24 - Subjective Subjective: Rick Lennon PGY2 GI Progress Note for Dr. Ayala Patient was seen and examined at bedside. Patient's abdominal pain has improved, she is having formed stools, and less bleeding. She is tolerating her diet well and being educated on proper enema use by the nurses. Objective - Vital Signs/Intake and Output Vital Signs (last 24 hours): Temp Pulse Resp BP Pulse Ox 98.6 F 78 18 95/67 L 97 05/16/18 09:01 05/16/18 09:01 05/16/18 09:01 05/16/18 09:01 05/16/18 09:01 Intake and Output: 05/17/18 05/17/18 06:59 18:59 Intake Total 840 Balance 840 - Medications Medications: Current Medications Acetaminophen (Tylenol 325mg Tab) 650 mg PO Q6H PRN PRN Reason: pain Enoxaparin Sodium (Lovenox) 40 mg SC DAILY [facility]; Protocol Last Admin: 05/16/18 09:08 Dose: 40 mg Dextrose/Sodium Chloride (Dextrose 5%/0.9% Ns 1000 Ml) 1,000 mls @ 70 mls/hr IV .[id number] [facility] Last Admin: 05/16/18 21:35 Dose: 70 mls/hr Mesalamine (Asacol Hd 800mg) 800 mg PO TID [facility] Last Admin: 05/16/18 17:02 Dose: 800 mg Mesalamine (Rowasa Enema) 4 gm RC HS [facility] Last Admin: 05/16/18 21:36 Dose: 4 gm Morphine Sulfate (Morphine) 1 mg IVP Q6 PRN PRN Reason: Pain, severe (8-10) Last Admin: 05/17/18 01:47 Dose: 1 mg Ondansetron HCl (Zofran Inj) 4 mg IVP Q6H PRN PRN Reason: Nausea/Vomiting Last Admin: 05/13/18 09:40 Dose: 4 mg Pantoprazole Sodium (Protonix Ec Tab) 40 mg PO 0600 [facility] Last Admin: 05/17/18 06:10 Dose: 40 mg Vancomycin HCl (Vancocin 25 Mg/Ml (Oral Use)) 250 mg PO BID [facility]; Protocol - Labs Labs: 05/15/18 06:10 05/15/18 06:10 PT 13.2 SECONDS (9.4-12.5) H 05/10/18 11:25 INR 1.17 05/10/18 11:25 APTT 31.4 Seconds (26.9-38.3) 05/10/18 11:25 - Constitutional Appears: Well, Non-toxic, No Acute Distress - Head Exam Head Exam: ATRAUMATIC, NORMAL INSPECTION - Eye Exam Eye Exam: EOMI, Normal appearance, PERRL - ENT Exam ENT Exam: Mucous Membranes Moist, Normal Exam - Neck Exam Neck Exam: Full ROM, Normal Inspection - Respiratory Exam Respiratory Exam: NORMAL BREATHING PATTERN. absent: Respiratory Distress - Cardiovascular Exam Cardiovascular Exam: RRR, +S1, +S2 - GI/Abdominal Exam GI & Abdominal Exam: Soft, Normal Bowel Sounds. 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 Other differential for colitis should be IBD and infectious. Patient likely has underlying inflammatory bowel disease with colonizing c.diff infection. Patient is s/p flex-sig 05/10 showing severe colitis, pseudomembranous colitis. CT abd reviewed. celiac disease and c.diff serologies are negative. 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 Plan: - C.diff stool testing negative however, she has been on treatment and likelihood of C.diff is still high and treatment has not been optimized - FU IBD, CMV serologies - cont diet as tolerated (low-fat/low-fiber soft diet) even as outpatient until symptoms resolve - cont PO vanco, at decreased dose of BID - cont Mesalamine PO and OK - ordered TPMT activity and Quanteferon tests in case we need to start biologics or thiopurines in future to avoid complications - started on DVT ppx as she is high risk for DVT's given her IBD dx - Pain control - Upon discharge, patient should continue low-fat/low-fiber soft diet, and cont Vancomycin PO QID for 2 more weeks, Mesalamine PO and OK as current regimen. Patient should follow-up with Dr. Ayala within 1 week of discharge. - Patient could be candidate for fecal transplant This note is not finalized until signed Case was reviewed and discussed with Dr. Rivera <Vanessa Ayala V - Last Filed: 05/17/18 21:24> Objective - Vital Signs/Intake and Output Vital Signs (last 24 hours): Temp Pulse Resp BP Pulse Ox 98.6 F 84 16 96/66 L 98 05/17/18 06:00 05/17/18 06:00 05/17/18 06:00 05/17/18 06:00 05/17/18 06:00 - Labs Labs: 05/15/18 06:10 05/15/18 06:10 PT 13.2 SECONDS (9.4-12.5) H 05/10/18 11:25 INR 1.17 05/10/18 11:25 APTT 31.4 Seconds (26.9-38.3) 05/10/18 11:25 Attending/Attestation - Attestation I have fully participated in the care of the patient.: Yes I have reviewed all pertinent clinical information, including history, physical exam and plan: Yes Notes (Text): This is an addendum to the GI progress report dictated by the medical malpractice paralegal the case was discussed at length medications were reviewed patient is clinically improving would need to continue Rowasa enema 1 at bedtime we will continue the vancomycin for another 10-14 days Continue Asacol 800 mg 3 times a day. Patient probably has inflammatory bowel disease in combination with recurrent episodes of C. difficile. Patient has poor tolerance to p.o. Flagyl At present patient is not a candidate for transplant as patient is clinically improving. Stool for C. difficile was negative but the flex sig showed pseudomembranes. Patient was advised to medical follow-up with the primary physician and follow- up in our office in 1 week time 05/17/18 21:20
[2018-05-17 09:21] VITALS: BP 96/66; PULSE 84; RESP 16; O2SAT 98
[2018-05-17] MEDS: Enoxaparin 40 mg Syringe SC SCH ×2 (09:27→09:33)
[2018-05-17] MEDS: Mesalamine 800 mg DR Tab PO SCH ×2 (09:27→13:16)
[2018-05-17] MEDS ORDERED: Vancomycin 25 MG/ML PO SCH (10:00)
[2018-05-17 13:45] LABS: ANCA SCREEN POSITIVE (NEGATIVE)
--- NOTE | 2018-05-19 14:00 | PN ---
DATE: 05/16/2018 SUBJECTIVE: This 42-year-old female was examined at bedside on April. Present for interview was nurse, Yumiko Desai, registered nurse. Case was reviewed with Dr. Vanessa Ayala from GI. The patient is awaiting pathological biopsy results from recent sigmoidoscopy. She remains on vancomycin enemas ,oral vancomycin, oral Asacol and IV fluids. She is having her diet slowly advanced and reports this morning that she had minimal blood tinged bowel movement. OBJECTIVE: VITAL SIGNS: Revealed normal sinus rhythm on monitor and storage bin tender with temperature 98.6, respirations 16, pulse 84 and blood pressure 95/66 with pulse ox 98% room air. Remainder of physical exam is unchanged. LABORATORY DATA: White count 9200, hemoglobin 9.9, hematocrit 32.3, platelets 420,000. Sodium 138, K 3.7, chloride 107, bicarb 25, BUN 4, creatinine 0.5 and random blood sugar 94. All liver function testing was normal including bilirubin less than 0.1, AST 29, ALT 19, alk phos 81. The patient's ANCA scree was 1:80 high with a pattern being associated with ulcerative colitis or Crohn's with celiac screen showing no serological evidence of celiac disease. Her hepatitis A, B, C panels were negative. HIV is nonreactive and her antibodies to Saccharomyces cerevisiae was positive at 29.4, with these antibodies being found in approximately 75% of people with Crohn's disease and 15% of people with ulcerative colitis. C. Diff toxin Gene was not detected. IMPRESSION AND RECOMMENDATION: This is a 42-year-old female with colitis. Differential being Clostridium difficile toxin colitis versus ulcerative or Crohn's colitis. As discussed with Dr. Ayala, the patient will continue on slow advancement of diet, rectal enemas, oral vancomycin while awaiting pathology results. Based on clinical results, additional diagnostic workup and testing will be entertained. All of the above was reviewed with the patient with nurse Yumiko Desai at bedside. All questions were answered. Celi Dias MD ETHAN
--- NOTE | 2018-05-20 00:11 | DS ---
DATE OF DISCHARGE: 05/17/2018. FINAL DIAGNOSES: Pancolitis status post improvement in bloody bowel movements. History of Clostridium difficile colitis in the past. Rule out irritable bowel disease. Rule out ulcerative colitis. DISPOSITION: Home. FOLLOWUP: Dr. Ayala in his office within the next week. DISCHARGE DIET: Soft bland. DISCHARGE MEDICATIONS: Vancomycin 250 mg p.o. b.i.d. #28. The patient will be discharged on mesalamine 800 mg p.o. t.i.d., Rowasa enema kit 4 g rectal at bedtime. Further medication orders as per Dr. Spencer. DISCHARGE SUMMARY: This 42-year-old female was admitted with bloody bowel movements and underwent sigmoidoscopy with pathological results showing chronic active colitis. No evidence of granulomas. No evidence of malignancy with the possibility of inflammatory bowel disease versus ulcerative colitis. The patient was treated with IV antibiotics, oral vancomycin, oral Flagyl, rectal enemas and at the time of discharge vital signs showed temperature 98.6, respirations 16, pulse 84, blood pressure 96/66, and pulse ox 98%. No evidence of any further GI bleeding with the passage of bowel movements. The patient was tolerating a soft bland GI diet. White count 9200, hemoglobin 9.9, hematocrit 32.3, platelets 420,000. PT/INR 1.17, PTT 31.4. Sodium 138, potassium 3.7, chloride 107, bicarb 25, BUN 4, creatinine 0.5, random blood sugar 94, calcium 8.2, bilirubin less than 0.1, AST 29, ALT 9 and alk phos 81. The patient is discharged to home. She is to follow up with Dr. Ayala for further management of her colitis. She is instructed on a low-fat low-fiber soft diet. She is clearly aware that she needs to take her vancomycin 250 mg p.o. b.i.d. for 2 weeks and has been prescribed this amount as well as mesalamine p.o. and per rectum as per recommendation by Dr. Ayala. The patient was advised for any change in signs and symptoms to present directly to the [facility] ER. Greater than 35 minutes was spent in her discharge management and review with nurse Yumiko Desai at bedside. All questions were answered. Celi Dias MD MTDEmery
== END 2018-05-17 13:48 | disposition home or self-care (01) | DRG 392 ==
LOC: ED 10:07 → ERH 12:09 → 3RSO 17:26
PROVIDERS: ADMIT Internal Medicine; ATTEND Internal Medicine
PROC: 0DBN8ZX Excision of Sigmoid Colon, Via Natural or Artificial Opening Endoscopic, Diagnostic (ICD-10-PCS; principal; 2018-05-10 13:45)
DX: K52.9 Noninfective gastroenteritis and colitis, unspecified (principal); K92.1 Melena; D64.9 Anemia, unspecified; K62.89 Other specified diseases of anus and rectum; Z86.19 Personal history of other infectious and parasitic diseases

== ENCOUNTER 2018-07-01 11:44 | Inpatient (IN) | payer MEDICAID, OTHER ==
[2018-07-01 11:45] VITALS: BMI 23.3
[2018-07-01] MEDS ORDERED: Sodium Chloride 0.9% 1,000 ML IV STA (12:01)
--- NOTE | 2018-07-01 12:35 | ED PDOC ---
Arrival/HPI - General Chief Complaint: GI Problem Time Seen by Provider: 07/01/18 11:46 Historian: Patient - History of Present Illness Narrative History of Present Illness (Text): 07/01/18 13:33 43 y/o female with PMH of colitis presents to the ED c/o generalized abdominal pain and diarrhea x 1 day. Beginning yesterday, pt started with bloody diarrhea 6-7 episodes with associated abdominal cramping, worse in LLQ. Pain is constant without radiation to the back. Associated intermittent chills. She called her GI doctor, Dr. Ayala's office who recommended pt come to ED for evaluation. She has not taken her mesalamine in 3 days. States she had a similar episode a few months ago, diagnosed with colitis/GI bleed, admitted to the hospital and was clinically diagnosed with CDiff. Denies nausea, vomiting, chest pain, SOB, back pain, vaginal discharge/odor, urinary symptoms, neck pain/stiffness, headache, dizziness, vision changes, or any other associated symptoms. Past Medical History - Provider Review Nursing Documentation Reviewed: Yes Primary Care Provider: Vanessa Ayala V - Infectious Disease Hx of Infectious Diseases: None - Tetanus Immunization Tetanus Immunization: Unknown - Cardiac Hx Cardiac Disorders: Yes Hx Heart Murmur: Yes - Pulmonary Hx Respiratory Disorders: No - Neurological Hx Neurological Disorder: No - HEENT Hx HEENT Disorder: No - Renal Hx Renal Disorder: Yes Hx Kidney Stones: Yes (12-01-11) - Endocrine/Metabolic Hx Endocrine Disorders: No - Hematological/Oncological Hx Blood Transfusions: (UNKNOWN) Hx Blood Transfusion Reaction: (UNKNOWN) - Integumentary Hx Dermatological Disorder: Yes (PARONYCHIA OF THUMB) - Musculoskeletal/Rheumatological Hx Musculoskeletal Disorders: No Hx Falls: No - Gastrointestinal Hx Gastrointestinal Disorders: Yes (C DIFF H/O,COLITIS 12-01-11) - Genitourinary/Gynecological Hx Genitourinary Disorders: Yes (RIGHT BREAST CYST REMOVED) Hx Urinary Tract Infection: Yes (12-01-11) - Psychiatric Hx Psychophysiologic Disorder: No Hx Depression: No Hx Emotional Abuse: No Hx Physical Abuse: No Hx Substance Use: No - Past Surgical History Past Surgical History: No Previous - Surgical History Other/Comment: R breast cyst removal - Anesthesia Hx Anesthesia Reactions: No Hx Malignant Hyperthermia: No - Suicidal Assessment Feels Threatened In Home Enviroment: No Family/Social History - Physician Review Nursing Documentation Reviewed: Yes Family/Social History: No Known Family HX Smoking Status: Never Smoked Hx Alcohol Use: No Hx Substance Use: No Hx Substance Use Treatment: No Allergies/Home Meds Allergies/Adverse Reactions: Allergies No Known Allergies Allergy (Verified 07/01/18 11:54) Review of Systems - Review of Systems Constitutional: Normal. absent: Fevers Eyes: Normal. absent: Vision Changes ENT: Normal. absent: Sore Throat, Sinus Congestion Respiratory: Normal. absent: SOB Cardiovascular: Normal. absent: Chest Pain, Palpitations, Syncope Gastrointestinal: Abdominal Pain, Diarrhea, Hematochezia. absent: Stool Changes, Constipation, Nausea, Vomiting, Appetite Changes Genitourinary Female: Normal. absent: Dysuria, Frequency, Vaginal Discharge Musculoskeletal: Normal. absent: Back Pain, Neck Pain Skin: Normal. absent: Rash Neurological: Normal. absent: Headache, Dizziness, Focal Weakness Physical Exam Vital Signs Reviewed: Yes Vital Signs Temp Pulse Resp BP Pulse Ox 07/01/18 11:54 98.2 F 105 H 18 131/88 97 Temperature: Afebrile Blood Pressure: Normal Pulse: Tachycardic Respiratory Rate: Normal Appearance: Positive for: Well-Appearing, Non-Toxic, Uncomfortable Pain Distress: Moderate Mental Status: Positive for: Alert and Oriented X 3 - Systems Exam Head: Present: Atraumatic, Normocephalic Pupils: Present: PERRL Extroacular Muscles: Present: EOMI Conjunctiva: Present: Normal Mouth: Present: Moist Mucous Membranes Neck: Present: Normal Range of Motion. No: Meningeal Signs Respiratory/Chest: Present: Clear to Auscultation, Good Air Exchange. No: Respiratory Distress, Accessory Muscle Use Cardiovascular: Present: Regular Rate and Rhythm, Normal S1, S2, Peripheal Pulses Present Abdomen: Present: Tenderness (generalized, worst LLQ), Normal Bowel Sounds. No: Distention, Peritoneal Signs Back: Present: Normal Inspection. No: CVA Tenderness Upper Extremity: Present: Normal Inspection, Normal ROM, NORMAL PULSES, Neurovascularly Intact, Capillary Refill < 2s. No: Cyanosis, Edema Lower Extremity: Present: Normal Inspection, NORMAL PULSES, Normal ROM, Neurovascularly Intact, Capillary Refill < 2 s. No: Edema, Temperature Abnormalties Neurological: Present: GCS=15, CN II-XII Intact, Speech Normal, Motor Func Grossly Intact, Normal Sensory Function, Gait Normal Skin: Present: Warm, Dry, Normal Color. No: Rashes Psychiatric: Present: Alert, Oriented x 3, Anxious Medical Decision Making ED Course and Treatment: Initial Plan: * Labs * UA * Type and Screen * EKG * CXR * CT Abd/Pelvis * IVF * Morphine * Protonix EKG shows NSR at 100 without acute ischemic change 12:44 Spoke with GI, Dr. Ayala. Recommends CT with PO contrast only. No IV contrast. Will call back with labs. 13:10 Urine reviewed, no UTI POC preg negative 13:31 Bloodwork reviewed, mild anemia at 10.9, mild hypokalemia at 3.5 (will replete with 40mEq PO KCl), leukocytosis at 15. Vitals stable, no tachycardia or fever. No other SIRS criteria. No lactic acid indicated. Patient reports improvement in pain with medication. 13:40 Pt refusing rectal exam at this time. 15:[address] shows pancolitis Patient reports significant improvement in pain with medications. 15:[address] Friend who accepts patient for inpatient observation to [facility] floor with diagnosis of pancolitis. Pt with stable vitals at this time. - Lab Interpretations Lab Results: 07/01/18 12:50 07/01/18 12:50 Lab Results 07/01/18 12:50: Blood Type B POSITIVE, Antibody Screen Negative, BBK History Checked Patient has bt 07/01/18 12:50: Sodium 137, Potassium 3.5 L, Chloride 102, Carbon Dioxide 25, Anion Gap 13, BUN 8, Creatinine 0.6 L, Est GFR ( Amer) > 60, Est GFR (Non-Af Amer) > 60, Random Glucose 95, Calcium 8.9, Magnesium 2.0, Total Bilirubin 0.3, AST 39 H D, ALT 7, Alkaline Phosphatase 104, Troponin I < 0.01, Total Protein 8.3, Albumin 3.8, Globulin 4.5, Albumin/Globulin Ratio 0.9 L, Lipase 67 07/01/18 12:50: PT 13.9 H, INR 1.23, APTT 31.4 07/01/18 12:50: WBC 15.0 H D, RBC 4.50, Hgb 10.9 L, Hct 34.5 L, MCV 76.7 L D, MCH 24.2 L, MCHC 31.6, RDW 14.2, Plt Count 505 H, MPV 8.6, Neut % (Auto) 63.5, Lymph % (Auto) 21.1 L, [place] % (Auto) 10.8 H, Eos % (Auto) 4.3, Baso % (Auto) 0.3, Lymph # (Auto) 3.2, [place] # (Auto) 1.6 H, Eos # (Auto) 0.7, Baso # (Auto) 0.04, Absolute Neuts (auto) 9.53 H 07/01/18 12:45: Urine Color Yellow, Urine Appearance Clear, Urine pH 6.0, Ur Specific [place] 1.025, Urine Protein Trace H, Urine Glucose (UA) Negative, Urine Ketones Negative, Urine Blood Moderate H, Urine Nitrate Negative, Urine Bilirubin Negative, Urine Urobilinogen 0.2, Ur Leukocyte Esterase Negative, Urine RBC 20 - 25 H, Urine WBC 1 - 3, Ur Epithelial Cells 6 - 8 H, Amorphous Sediment Few, Urine Bacteria Mod I have reviewed the lab results: Yes - RAD Interpretation Narrative RAD Interpretations (Text): 07/01/18 15:30 CXR: FINDINGS: LUNGS: No active pulmonary disease. PLEURA: No significant pleural effusion identified, no pneumothorax apparent. CARDIOVASCULAR: No aortic atherosclerotic calcification present. Normal cardiac size. No pulmonary vascular congestion. OSSEOUS STRUCTURES: No significant abnormalities. VISUALIZED UPPER ABDOMEN: Normal. OTHER FINDINGS: None. IMPRESSION: No active disease. 07/01/18 15:41 CT Abd/Pelvis: FINDINGS: LOWER THORAX: Unremarkable. LIVER: Unremarkable. No gross lesion or ductal dilatation. GALLBLADDER AND BILE DUCTS: Unremarkable. PANCREAS: Unremarkable. No gross lesion or ductal dilatation. SPLEEN: Unremarkable. ADRENALS: Unremarkable. No mass. KIDNEYS AND URETERS: 3 mm nonobstructing right lower pole renal calculus. No left renal calculus. No renal mass or hydronephrosis. VASCULATURE: Unremarkable. No aortic aneurysm. No aortic atherosclerotic calcification or mur al plaque present. BOWEL: There is pérez colitis sparing only the cecum. Circumferential mural thickening is noted without significant pericolonic stranding. No other abnormal bowel loops are identified. There is no evidence of bowel obstruction. APPENDIX: Unremarkable. Normal appendix. PERITONEUM: Unremarkable. No free fluid. No free air. LYMPH NODES: Unremarkable. No enlarged lymph nodes. BLADDER: Nondistended REPRODUCTIVE: Unremarkable uterus BONES: No acute fracture. OTHER FINDINGS: None. IMPRESSION: Nonspecific pérez colitis. Otherwise unremarkable examination. Radiology Orders: 07/01/18 12:01 CHEST PORTABLE [RAD] [place] Killer: Radiologist - EKG Interpretation EKG Interpretation (Text): 07/01/18 15:30 Rate 100; NSR; Normal itnervals and axis; NO STEMI, nonspecific ST/T wave changes Interpreted by ED Physician: Yes Type: 12 lead EKG - Medication Orders Current Medication Orders: Sodium Chloride (Sodium Chloride 0.9%) 1,000 mls @ 999 mls/hr IV .Q1H1M STA Stop: 07/01/18 13:01 Discontinued Medications Pantoprazole Sodium (Protonix Inj) 40 mg IVP STAT STA Stop: 07/01/18 12:01 Disposition/Present on Arrival - Present on Arrival Any Indicators Present on Arrival: No History of DVT/PE: No History of Uncontrolled Diabetes: No Urinary Catheter: No History of Decub. Ulcer: No History Surgical Site Infection Following: None - Disposition Have Diagnosis and Disposition been Completed?: Yes Diagnosis: Anemia, Pancolitis, GI bleed, Leukocytosis Disposition: HOSPITALIZED Disposition Time: 15:30 Condition: GOOD
[2018-07-01] MEDS ORDERED: Morphine 2 mg/ml ISec IVP STA ×2 (12:44→18:11)
[2018-07-01] MEDS ORDERED: Iohexol 240 (50 ml) ONE (12:50)
[2018-07-01 12:58] LABS: URINE BILIRUBIN NEGATIVE (NEGATIVE); URINE BLOOD MODERATE (NEGATIVE); URINE GLUCOSE (UA) NEGATIVE (NEGATIVE); URINE LEUKOCYTE ESTERASE NEGATIVE Leu/uL (NEGATIVE); URINE PROTEIN TRACE mg/dL (<30 mg/dL); URINE UROBILINOGEN 0.2 E.U./dL (<1 E.U./dL)
[2018-07-01 13:04] LABS: URINE APPEARANCE CLEAR (CLEAR); URINE COLOR YELLOW (YELLOW)
[2018-07-01 13:06] LABS: BASO # 0.04 K/mm3 (0.0-2.0); BASO % 0.3 % (0.0-3.0); EOS # 0.7 (0.0-0.7); EOS % 4.3 % (1.5-5.0); HEMOGLOBIN 10.9 g/dL (12.0-16.0); LYMPH # 3.2 (1.2-3.4); LYMPH % 21.1 % (22.0-35.0); MEAN CELL VOLUME 76.7 fl (80.0-105.0); MEAN CORPUSCULAR HEMOGLOBIN 24.2 pg (25.0-35.0); MEAN CORPUSCULAR HGB CONC 31.6 g/dl (31.0-37.0); MEAN PLATELET VOLUME 8.6 fl (7.0-11.0); MONO # 1.6 (0.1-0.6); MONO % 10.8 % (1.0-6.0); RBC 4.5 10^6/uL (3.5-6.1); RED CELL DISTRIBUTION WIDTH 14.2 % (11.5-14.5)
[2018-07-01 13:08] LABS: URINE AMORPHOUS SEDIMENT FEW /hpf; URINE BACTERIA MOD /hpf; URINE RBC 20 - 25 /hpf (0-2)
[2018-07-01 13:16] LABS: INR 1.23; PARTIAL THROMBOPLASTIN TIME 31.4 Seconds (26.9-38.3); PROTHROMBIN TIME 13.9 SECONDS (9.4-12.5)
[2018-07-01 13:29] LABS: ALB/GLOB RATIO 0.9 (1.1-1.8); ALBUMIN 3.8 g/dL (3.0-4.8); ALT/SGPT 7 U/L (7-56); AST/SGOT 39 U/L (14-36); BLOOD UREA NITROGEN 8 mg/dL (7-21); CALCIUM 8.9 mg/dL (8.4-10.5); GFR NON-AFRICAN AMERICAN > 60; LIPASE 67 U/L (23-300)
[2018-07-01] MEDS ORDERED: Potassium Chloride 20 mEq ER Tab PO STA (13:30)
[2018-07-01 13:40] LABS: TROPONIN I < 0.01 ng/mL
--- NOTE | 2018-07-01 14:49 | RAD ---
Date of service: 07/01/2018 HISTORY: abd pain COMPARISON: No prior. TECHNIQUE: 1 view obtained. FINDINGS: LUNGS: No active pulmonary disease. PLEURA: No significant pleural effusion identified, no pneumothorax apparent. CARDIOVASCULAR: No aortic atherosclerotic calcification present. Normal cardiac size. No pulmonary vascular congestion. OSSEOUS STRUCTURES: No significant abnormalities. VISUALIZED UPPER ABDOMEN: Normal. OTHER FINDINGS: None. IMPRESSION: No active disease.
--- NOTE | 2018-07-01 15:08 | CARD ---
APPROVED REPORT Date of service: 07/01/2018 EKG Measurement Heart [id number] <Conclusion> Normal sinus rhythm Normal ECG
--- NOTE | 2018-07-01 15:30 | CT ---
Date of service: 07/01/2018 PROCEDURE: CT Abdomen and Pelvis without intravenous contrast HISTORY: abdominal pain, h/o colitis COMPARISON: 05/10/2018 TECHNIQUE: Without contrast.. Contrast dose: 0 Radiation dose: Total exam DLP = 330.93 mGy-cm. This CT exam was performed using one or more of the following dose reduction techniques: Automated exposure control, adjustment of the mA and/or kV according to patient size, and/or use of iterative reconstruction technique. FINDINGS: LOWER THORAX: Unremarkable. LIVER: Unremarkable. No gross lesion or ductal dilatation. GALLBLADDER AND BILE DUCTS: Unremarkable. PANCREAS: Unremarkable. No gross lesion or ductal dilatation. SPLEEN: Unremarkable. ADRENALS: Unremarkable. No mass. KIDNEYS AND URETERS: 3 mm nonobstructing right lower pole renal calculus. No left renal calculus. No renal mass or hydronephrosis. VASCULATURE: Unremarkable. No aortic aneurysm. No aortic atherosclerotic calcification or mural plaque present. BOWEL: There is pérez colitis sparing only the cecum. Circumferential mural thickening is noted without significant pericolonic stranding. No other abnormal bowel loops are identified. There is no evidence of bowel obstruction. APPENDIX: Unremarkable. Normal appendix. PERITONEUM: Unremarkable. No free fluid. No free air. LYMPH NODES: Unremarkable. No enlarged lymph nodes. BLADDER: Nondistended REPRODUCTIVE: Unremarkable uterus BONES: No acute fracture. OTHER FINDINGS: None. IMPRESSION: Nonspecific pérez colitis. Otherwise unremarkable examination.
[2018-07-01] MEDS ORDERED: metroNIDAZOLE IV 500 mg/100 ml 500 MG/100 ML BAG IVPB STA (15:42)
[2018-07-01] MEDS ORDERED: Vancomycin 25 MG/ML PO STA (15:51)
--- NOTE | 2018-07-01 17:30 | CP.PCM.HP ---
<BassemPorter - Last Filed: 07/01/18 20:00> History of Present Illness - History of Present Illness History of Present Illness: Porter Luevano DO PGY-1 H&P Note for Dr. Alonso Dumont: Generalized abdominal pain, bloody diarrhea x1 day 43 y/o female with PMH of ulcerative colitis, recurrent c diff colitis presents to the ED with diffuse abdominal pain worse in LLQ, sharp, 9/10, intermittent, radiates to the back, no alleviating or worsening factors. Pain is associated with bloody diarrhea 6-7 episodes x1 day, chills. Patient states she had a similar episode a few months ago, diagnosed with colitis/GI bleed, admitted to the hospital and was diagnosed with C. Diff. She reports running out of her meds mesalamine She denies recent sickness/sick contacts/travel, eating unusual food. She denies fever, nausea, vomiting, SOB, CP, vaginal discharge/odor, urinary symptoms, neck pain/stiffness, visual changes, headache, dizziness. PMH: ulcerative colitis, recurrent c diff colitis PSH: Abdominoplasty All: NKDA SH: Denies ETOH, tobacco or illicit drug use FHx: non contributory Meds: as per MAR Present on Admission - Present on Admission Any Indicators Present on Admission: No Past Patient History - Infectious Disease Hx of Infectious Diseases: C.diff - Tetanus Immunizations Tetanus Immunization: Unknown - Past Social History Smoking Status: Never Smoked - CARDIAC Hx Cardiac Disorders: Yes Hx Heart Murmur: Yes - PULMONARY Hx Respiratory Disorders: No - NEUROLOGICAL Hx Neurological Disorder: No - HEENT Hx HEENT Problems: No - RENAL Hx Chronic Kidney Disease: Yes Hx Kidney Stones: Yes (12-01-11) - ENDOCRINE/METABOLIC Hx Endocrine Disorders: No - HEMATOLOGICAL/ONCOLOGICAL Hx Blood Transfusions: (UNKNOWN) Hx Blood Transfusion Reaction: (UNKNOWN) - INTEGUMENTARY Hx Dermatological Problems: Yes (PARONYCHIA OF THUMB) - MUSCULOSKELETAL/RHEUMATOLOGICAL Hx Musculoskeletal Disorders: No Hx Falls: No - GASTROINTESTINAL Hx Gastrointestinal Disorders: Yes (C DIFF H/O,COLITIS 12-01-11) - GENITOURINARY/GYNECOLOGICAL Hx Genitourinary Disorders: Yes (RIGHT BREAST CYST REMOVED) Hx Urinary Tract Infection: Yes (12-01-11) - PSYCHIATRIC Hx Psychophysiologic Disorder: No Hx Depression: No Hx Emotional Abuse: No Hx Physical Abuse: No Hx Substance Use: No - SURGICAL HISTORY Other/Comment: R breast cyst removal - ANESTHESIA Hx Anesthesia Reactions: No Hx Malignant Hyperthermia: No Meds Allergies/Adverse Reactions: Allergies Allergy/AdvReac Type Severity Reaction Status Date / Time No Known Allergies Allergy Verified 07/01/18 11:54 Physical Exam - Constitutional Appears: In Acute Distress - Head Exam Head Exam: ATRAUMATIC, NORMAL INSPECTION, NORMOCEPHALIC - Eye Exam Eye Exam: EOMI, Normal appearance, PERRL Pupil Exam: NORMAL ACCOMODATION, PERRL - ENT Exam ENT Exam: Mucous Membranes Dry - Neck Exam Neck exam: Positive for: Normal Inspection - Respiratory Exam Respiratory Exam: Clear to Auscultation Bilateral, NORMAL BREATHING PATTERN - Cardiovascular Exam Cardiovascular Exam: REGULAR RHYTHM, +S1, +S2. absent: Gallop, Rubs - GI/Abdominal Exam GI & Abdominal Exam: Guarding, Hyperactive Bowel Sounds, Rebound, Soft, Tenderness (diffuse, prominent in LLQ). absent: Mass - Extremities Exam Extremities exam: Positive for: normal inspection - Back Exam Back exam: NORMAL INSPECTION - Neurological Exam Neurological exam: Alert, CN II-XII Intact, Normal Gait, Oriented x3, Reflexes Normal - Psychiatric Exam Psychiatric exam: Anxious, Depressed - Skin Skin Exam: Dry, Intact, Normal Color, Warm Results - Vital Signs Recent Vital Signs: Last Vital Signs Temp 98.2 F 07/01/18 11:54 Pulse 91 H 07/01/18 16:39 Resp 18 07/01/18 16:39 BP 132/79 07/01/18 16:39 Pulse Ox 100 07/01/18 16:39 - Labs Result Diagrams: 07/01/18 12:50 07/01/18 12:50 Labs: Laboratory Results - last 24 hr 07/01/18 07/01/18 07/01/18 12:45 12:50 12:50 WBC 15.0 H D RBC 4.50 Hgb 10.9 L Hct 34.5 L MCV 76.7 L D MCH 24.2 L MCHC 31.6 RDW 14.2 Plt Count 505 H MPV 8.6 Neut % (Auto) 63.5 Lymph % (Auto) 21.1 L [place] % (Auto) 10.8 H Eos % (Auto) 4.3 Baso % (Auto) 0.3 Lymph # (Auto) 3.2 [place] # (Auto) 1.6 H Eos # (Auto) 0.7 Baso # (Auto) 0.04 Absolute Neuts (auto) 9.53 H PT 13.9 H INR 1.23 APTT 31.4 Sodium Potassium Chloride Carbon Dioxide Anion Gap BUN Creatinine Est GFR ( Amer) Est GFR (Non-Af Amer) Random Glucose Calcium Magnesium Total Bilirubin AST ALT Alkaline Phosphatase Troponin I Total Protein Albumin Globulin Albumin/Globulin Ratio Lipase Urine Color Yellow Urine Appearance Clear Urine pH 6.0 Ur Specific [place] 1.025 Urine Protein Trace H Urine Glucose (UA) Negative Urine Ketones Negative Urine Blood Moderate H Urine Nitrate Negative Urine Bilirubin Negative Urine Urobilinogen 0.2 Ur Leukocyte Esterase Negative Urine RBC 20 - 25 H Urine WBC 1 - 3 Ur Epithelial Cells 6 - 8 H Amorphous Sediment Few Urine Bacteria Mod Blood Type Antibody Screen BBK History Checked 07/01/18 07/01/18 12:50 12:50 WBC RBC Hgb Hct MCV MCH MCHC RDW Plt Count MPV Neut % (Auto) Lymph % (Auto) [place] % (Auto) Eos % (Auto) Baso % (Auto) Lymph # (Auto) [place] # (Auto) Eos # (Auto) Baso # (Auto) Absolute Neuts (auto) PT INR APTT Sodium 137 Potassium 3.5 L Chloride 102 Carbon Dioxide 25 Anion Gap 13 BUN 8 Creatinine 0.6 L Est GFR ( Amer) > 60 Est GFR (Non-Af Amer) > 60 Random Glucose 95 Calcium 8.9 Magnesium 2.0 Total Bilirubin 0.3 AST 39 H D ALT 7 Alkaline Phosphatase 104 Troponin I < 0.01 Total Protein 8.3 Albumin 3.8 Globulin 4.5 Albumin/Globulin Ratio 0.9 L Lipase 67 Urine Color Urine Appearance Urine pH Ur Specific [place] Urine Protein Urine Glucose (UA) Urine Ketones Urine Blood Urine Nitrate Urine Bilirubin Urine Urobilinogen Ur Leukocyte Esterase Urine RBC Urine WBC Ur Epithelial Cells Amorphous Sediment Urine Bacteria Blood Type B POSITIVE Antibody Screen Negative BBK History Checked Patient has bt Assessment & Plan - Assessment and Plan (Free Text) Assessment: 43 y/o female with PMH of ulcerative colitis, recurrent c diff colitis presents to the ED with diffuse abdominal pain associated with bloody diarrhea x1 day. CT A/P suggestive of pancolitis. Patient admitted to med/surg for workup of colitis Plan: Abdominal pain/bloody diarrhea: -likely UC flare up in the setting of medication non compliance, infectious colitis -leukocytosis, afebrile -CT A/P: pérez colitis sparing only the cecum. Circumferential mural thickening is noted without significant pericolonic stranding -EKG: NSR@[address]/T wave changes -started vanco po, flagel IV -mesalamine enema QHS, MESALAMINE 800 po tid -f/u stool Ag c diff -lipase, LFT wnl -elevated ESR @ 50 -Clear liquid diet, omeprazol, zofran prn -morphine 2 mg q6 prn -IVF NS @100 cc/hr -GI following, Dr. Ayala. flex sigmoidscopy Monday 07/03 -flex-sig 05/10/18- showing severe colitis, pseudomembranous colitis -celiac disease and c.diff serologies are negative .Pathology shows chronic active colitis (moderate w/ cryptitis, focal crypt abscesses) w/o granulomas and no malignancy( admission) Hypokalemia: -K repleted -labs in am Anemia: -H/H 10.9/34.5 MCV 76.7 -continue to monitor PPX: DVT: SCD GI: protonix CLD Case reviewed and plan discussed with Dr Alonso Luevano DO PGY1 <Taj Gupta - Last Filed: 07/02/18 06:56> Results - Vital Signs Recent Vital Signs: Last Vital Signs Temp 100.3 F H 07/02/18 06:25 Pulse 91 H 07/01/18 21:22 Resp 20 07/02/18 00:00 BP 105/61 07/02/18 00:00 Pulse Ox 99 07/02/18 00:00 - Labs Result Diagrams: 07/01/18 12:50 07/01/18 12:50 Labs: Laboratory Results - last 24 hr 07/01/18 07/01/18 07/01/18 11:00 11:00 12:45 WBC RBC Hgb Hct MCV MCH MCHC RDW Plt Count MPV Neut % (Auto) Lymph % (Auto) [place] % (Auto) Eos % (Auto) Baso % (Auto) Lymph # (Auto) [place] # (Auto) Eos # (Auto) Baso # (Auto) Absolute Neuts (auto) ESR 50 H PT INR APTT Sodium Potassium Chloride Carbon Dioxide Anion Gap BUN Creatinine Est GFR ( Amer) Est GFR (Non-Af Amer) Random Glucose Calcium Magnesium Total Bilirubin AST ALT Alkaline Phosphatase Troponin I C-React Prot High Sens > 15.00 H Total Protein Albumin Globulin Albumin/Globulin Ratio Lipase Urine Color Yellow Urine Appearance Clear Urine pH 6.0 Ur Specific [place] 1.025 Urine Protein Trace H Urine Glucose (UA) Negative Urine Ketones Negative Urine Blood Moderate H Urine Nitrate Negative Urine Bilirubin Negative Urine Urobilinogen 0.2 Ur Leukocyte Esterase Negative Urine RBC 20 - 25 H Urine WBC 1 - 3 Ur Epithelial Cells 6 - 8 H Amorphous Sediment Few Urine Bacteria Mod Blood Type Antibody Screen BBK History Checked 07/01/18 07/01/18 07/01/18 12:50 12:50 12:50 WBC 15.0 H D RBC 4.50 Hgb 10.9 L Hct 34.5 L MCV 76.7 L D MCH 24.2 L MCHC 31.6 RDW 14.2 Plt Count 505 H MPV 8.6 Neut % (Auto) 63.5 Lymph % (Auto) 21.1 L [place] % (Auto) 10.8 H Eos % (Auto) 4.3 Baso % (Auto) 0.3 Lymph # (Auto) 3.2 [place] # (Auto) 1.6 H Eos # (Auto) 0.7 Baso # (Auto) 0.04 Absolute Neuts (auto) 9.53 H ESR PT 13.9 H INR 1.23 APTT 31.4 Sodium 137 Potassium 3.5 L Chloride 102 Carbon Dioxide 25 Anion Gap 13 BUN 8 Creatinine 0.6 L Est GFR ( Amer) > 60 Est GFR (Non-Af Amer) > 60 Random Glucose 95 Calcium 8.9 Magnesium 2.0 Total Bilirubin 0.3 AST 39 H D ALT 7 Alkaline Phosphatase 104 Troponin I < 0.01 C-React Prot High Sens Total Protein 8.3 Albumin 3.8 Globulin 4.5 Albumin/Globulin Ratio 0.9 L Lipase 67 Urine Color Urine Appearance Urine pH Ur Specific [place] Urine Protein Urine Glucose (UA) Urine Ketones Urine Blood Urine Nitrate Urine Bilirubin Urine Urobilinogen Ur Leukocyte Esterase Urine RBC Urine WBC Ur Epithelial Cells Amorphous Sediment Urine Bacteria Blood Type Antibody Screen BBK History Checked 07/01/18 12:50 WBC RBC Hgb Hct MCV MCH MCHC RDW Plt Count MPV Neut % (Auto) Lymph % (Auto) [place] % (Auto) Eos % (Auto) Baso % (Auto) Lymph # (Auto) [place] # (Auto) Eos # (Auto) Baso # (Auto) Absolute Neuts (auto) ESR PT INR APTT Sodium Potassium Chloride Carbon Dioxide Anion Gap BUN Creatinine Est GFR ( Amer) Est GFR (Non-Af Amer) Random Glucose Calcium Magnesium Total Bilirubin AST ALT Alkaline Phosphatase Troponin I C-React Prot High Sens Total Protein Albumin Globulin Albumin/Globulin Ratio Lipase Urine Color Urine Appearance Urine pH Ur Specific [place] Urine Protein Urine Glucose (UA) Urine Ketones Urine Blood Urine Nitrate Urine Bilirubin Urine Urobilinogen Ur Leukocyte Esterase Urine RBC Urine WBC Ur Epithelial Cells Amorphous Sediment Urine Bacteria Blood Type B POSITIVE Antibody Screen Negative BBK History Checked Patient has bt Attending/Attestation - Attestation I have personally seen and examined this patient.: Yes I have fully participated in the care of the patient.: Yes I have reviewed all pertinent clinical information: Yes Notes (Text): 07/01/18 43 year old female with past medical history of ulcerative colitis and CDif colitis who presents with complaint of abdominal pain and bloody diarrhea. CT abd/pelvis showed nonspecific colitis. Labs reviewed showing leukocytosis, mild hypokalemia and anemia. GI evaluation is requested. Continue with flagyl and po vanco while awaiting stool studies. Clear liquid diet as tolerated. Zofran prn for nausea. Mesalamine as per GI. Taj Gupta MD Hospitalist.
--- NOTE | 2018-07-01 19:57 | CP.PCM.CON ---
<Hector Aranda - Last Filed: 07/01/18 20:04> History of Present Illness - History of Present Illness History of Present Illness: Hector Aranda Internal Medicine Resident- Consult Note on Behalf of Dr. Ayala Subjective: CC: Abdominal Pain and Diarrhea HPI: Patient is a 42 year old female with recurrent c. diff colitis who was admitted for evaluation and treatment of abdominal pain and 6-7 bouts of bloody diarrhea which began approximately 1 day ago. Admits to finishing mesalamaine and not refilling her prescription. States abdominal pain is diffuse and is charact erized as being cramping. Rates the pain a 9/10. Admits to decreased PO intake. Denies sick contacts and recent travel. Furthermore, denies fever, chills, chest pain, SOB, nausea, vomiting, constipation, and urinary symptoms. 12 point ROS negative other than stated above Past Medical History: recurrent c diff colitis Past Surgical History: Abdominoplasty Allergies: NKDA Social History: Denies tobacco, etoh, and illicit drug use Family History: Neg for colon cancer Medications: As per MAR Physical Examination: - Constitutional Appears: No acute distress - Head Exam Head Exam: ATRAUMATIC, NORMAL INSPECTION, NORMOCEPHALIC - Eye Exam Eye Exam: EOMI, Normal appearance - ENT Exam ENT Exam: Mucous Membranes Dry - Neck Exam Neck exam: Positive for: Normal Inspection - Respiratory Exam Respiratory Exam: Clear to Auscultation Bilateral, NORMAL BREATHING PATTERN - Cardiovascular Exam Cardiovascular Exam: REGULAR RHYTHM, +S1, +S2. 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 Ayala. Past Patient History - Infectious Disease Hx of Infectious Diseases: C.diff - Tetanus Immunizations Tetanus Immunization: Unknown - Past Social History Smoking Status: Never Smoked - CARDIAC Hx Cardiac Disorders: Yes Hx Heart Murmur: Yes - PULMONARY Hx Respiratory Disorders: No - NEUROLOGICAL Hx Neurological Disorder: No - HEENT Hx HEENT Problems: No - RENAL Hx Chronic Kidney Disease: Yes Hx Kidney Stones: Yes (12-01-11) - ENDOCRINE/METABOLIC Hx Endocrine Disorders: No - HEMATOLOGICAL/ONCOLOGICAL Hx Blood Transfusions: (UNKNOWN) Hx Blood Transfusion Reaction: (UNKNOWN) - INTEGUMENTARY Hx Dermatological Problems: Yes (PARONYCHIA OF THUMB) - MUSCULOSKELETAL/RHEUMATOLOGICAL Hx Musculoskeletal Disorders: No Hx Falls: No - GASTROINTESTINAL Hx Gastrointestinal Disorders: Yes (C DIFF H/O,COLITIS 12-01-11) - GENITOURINARY/GYNECOLOGICAL Hx Genitourinary Disorders: Yes (RIGHT BREAST CYST REMOVED) Hx Urinary Tract Infection: Yes (12-01-11) - PSYCHIATRIC Hx Psychophysiologic Disorder: No Hx Depression: No Hx Emotional Abuse: No Hx Physical Abuse: No Hx Substance Use: No - SURGICAL HISTORY Other/Comment: R breast cyst removal - ANESTHESIA Hx Anesthesia Reactions: No Hx Malignant Hyperthermia: No Meds Allergies/Adverse Reactions: Allergies Allergy/AdvReac Type Severity Reaction Status Date / Time No Known Allergies Allergy Verified 07/01/18 11:54 - Medications Medications: Current Medications Metronidazole (Flagyl) 500 mg in 100 mls @ 100 mls/hr IVPB Q8 [place]ERVA; Protocol Mesalamine (Asacol Hd 800mg) 800 mg PO TID [place] Mesalamine (Rowasa Enema) 4 gm RC HS [place] Ondansetron HCl (Zofran Inj) 4 mg IVP Q6H PRN PRN Reason: Nausea/Vomiting Pantoprazole Sodium (Protonix Inj) 40 mg IVP DAILY [place] Vancomycin HCl (Vancocin 25 Mg/Ml (Oral Use)) 125 mg PO QID [place]ERVA; Protocol Results - Vital Signs Recent Vital Signs: Last Vital Signs Temp 98.2 F 07/01/18 11:54 Pulse 91 H 07/01/18 16:39 Resp 18 07/01/18 16:39 BP 132/79 07/01/18 16:39 Pulse Ox 100 07/01/18 16:39 - Labs Result Diagrams: 07/01/18 12:50 07/01/18 12:50 Labs: Laboratory Results - last 24 hr 07/01/18 07/01/18 07/01/18 11:00 12:45 12:50 WBC 15.0 H D RBC 4.50 Hgb 10.9 L Hct 34.5 L MCV 76.7 L D MCH 24.2 L MCHC 31.6 RDW 14.2 Plt Count 505 H MPV 8.6 Neut % (Auto) 63.5 Lymph % (Auto) 21.1 L [place] % (Auto) 10.8 H Eos % (Auto) 4.3 Baso % (Auto) 0.3 Lymph # (Auto) 3.2 [place] # (Auto) 1.6 H Eos # (Auto) 0.7 Baso # (Auto) 0.04 Absolute Neuts (auto) 9.53 H ESR 50 H PT INR APTT Sodium Potassium Chloride Carbon Dioxide Anion Gap BUN Creatinine Est GFR ( Amer) Est GFR (Non-Af Amer) Random Glucose Calcium Magnesium Total Bilirubin AST ALT Alkaline Phosphatase Troponin I Total Protein Albumin Globulin Albumin/Globulin Ratio Lipase Urine Color Yellow Urine Appearance Clear Urine pH 6.0 Ur Specific [place] 1.025 Urine Protein Trace H Urine Glucose (UA) Negative Urine Ketones Negative Urine Blood Moderate H Urine Nitrate Negative Urine Bilirubin Negative Urine Urobilinogen 0.2 Ur Leukocyte Esterase Negative Urine RBC 20 - 25 H Urine WBC 1 - 3 Ur Epithelial Cells 6 - 8 H Amorphous Sediment Few Urine Bacteria Mod Blood Type Antibody Screen BBK History Checked 07/01/18 07/01/18 07/01/18 12:50 12:50 12:50 WBC RBC Hgb Hct MCV MCH MCHC RDW Plt Count MPV Neut % (Auto) Lymph % (Auto) [place] % (Auto) Eos % (Auto) Baso % (Auto) Lymph # (Auto) [place] # (Auto) Eos # (Auto) Baso # (Auto) Absolute Neuts (auto) ESR PT 13.9 H INR 1.23 APTT 31.4 Sodium 137 Potassium 3.5 L Chloride 102 Carbon Dioxide 25 Anion Gap 13 BUN 8 Creatinine 0.6 L Est GFR ( Amer) > 60 Est GFR (Non-Af Amer) > 60 Random Glucose 95 Calcium 8.9 Magnesium 2.0 Total Bilirubin 0.3 AST 39 H D ALT 7 Alkaline Phosphatase 104 Troponin I < 0.01 Total Protein 8.3 Albumin 3.8 Globulin 4.5 Albumin/Globulin Ratio 0.9 L Lipase 67 Urine Color Urine Appearance Urine pH Ur Specific [place] Urine Protein Urine Glucose (UA) Urine Ketones Urine Blood Urine Nitrate Urine Bilirubin Urine Urobilinogen Ur Leukocyte Esterase Urine RBC Urine WBC Ur Epithelial Cells Amorphous Sediment Urine Bacteria Blood Type B POSITIVE Antibody Screen Negative BBK History Checked Patient has bt <Lucy,Kovil V - Last Filed: 07/01/18 20:19> Meds - Medications Medications: Current Medications Metronidazole (Flagyl) 500 mg in 100 mls @ 100 mls/hr IVPB Q8 [place]; Protocol Mesalamine (Asacol Hd 800mg) 800 mg PO TID [place] Mesalamine (Rowasa Enema) 4 gm RC HS [place] Ondansetron HCl (Zofran Inj) 4 mg IVP Q6H PRN PRN Reason: Nausea/Vomiting Pantoprazole Sodium (Protonix Inj) 40 mg IVP DAILY [place] Vancomycin HCl (Vancocin 25 Mg/Ml (Oral Use)) 125 mg PO QID [place]ERV[place]; Protocol Results - Vital Signs Recent Vital Signs: Last Vital Signs Temp 98.2 F 07/01/18 11:54 Pulse 91 H 07/01/18 16:39 Resp 18 07/01/18 16:39 BP 132/79 07/01/18 16:39 Pulse Ox 100 07/01/18 16:39 - Labs Result Diagrams: 07/01/18 12:50 07/01/18 12:50 Labs: Laboratory Results - last 24 hr 07/01/18 07/01/18 07/01/18 11:00 11:00 12:45 WBC RBC Hgb Hct MCV MCH MCHC RDW Plt Count MPV Neut % (Auto) Lymph % (Auto) [place] % (Auto) Eos % (Auto) Baso % (Auto) Lymph # (Auto) [place] # (Auto) Eos # (Auto) Baso # (Auto) Absolute Neuts (auto) ESR 50 H PT INR APTT Sodium Potassium Chloride Carbon Dioxide Anion Gap BUN Creatinine Est GFR ( Amer) Est GFR (Non-Af Amer) Random Glucose Calcium Magnesium Total Bilirubin AST ALT Alkaline Phosphatase Troponin I C-React Prot High Sens > 15.00 H Total Protein Albumin Globulin Albumin/Globulin Ratio Lipase Urine Color Yellow Urine Appearance Clear Urine pH 6.0 Ur Specific [place] 1.025 Urine Protein Trace H Urine Glucose (UA) Negative Urine Ketones Negative Urine Blood Moderate H Urine Nitrate Negative Urine Bilirubin Negative Urine Urobilinogen 0.2 Ur Leukocyte Esterase Negative Urine RBC 20 - 25 H Urine WBC 1 - 3 Ur Epithelial Cells 6 - 8 H Amorphous Sediment Few Urine Bacteria Mod Blood Type Antibody Screen BBK History Checked 07/01/18 07/01/18 07/01/18 12:50 12:50 12:50 WBC 15.0 H D RBC 4.50 Hgb 10.9 L Hct 34.5 L MCV 76.7 L D MCH 24.2 L MCHC 31.6 RDW 14.2 Plt Count 505 H MPV 8.6 Neut % (Auto) 63.5 Lymph % (Auto) 21.1 L [place] % (Auto) 10.8 H Eos % (Auto) 4.3 Baso % (Auto) 0.3 Lymph # (Auto) 3.2 [place] # (Auto) 1.6 H Eos # (Auto) 0.7 Baso # (Auto) 0.04 Absolute Neuts (auto) 9.53 H ESR PT 13.9 H INR 1.23 APTT 31.4 Sodium 137 Potassium 3.5 L Chloride 102 Carbon Dioxide 25 Anion Gap 13 BUN 8 Creatinine 0.6 L Est GFR ( Amer) > 60 Est GFR (Non-Af Amer) > 60 Random Glucose 95 Calcium 8.9 Magnesium 2.0 Total Bilirubin 0.3 AST 39 H D ALT 7 Alkaline Phosphatase 104 Troponin I < 0.01 C-React Prot High Sens Total Protein 8.3 Albumin 3.8 Globulin 4.5 Albumin/Globulin Ratio 0.9 L Lipase 67 Urine Color Urine Appearance Urine pH Ur Specific [place] Urine Protein Urine Glucose (UA) Urine Ketones Urine Blood Urine Nitrate Urine Bilirubin Urine Urobilinogen Ur Leukocyte Esterase Urine RBC Urine WBC Ur Epithelial Cells Amorphous Sediment Urine Bacteria Blood Type Antibody Screen BBK History Checked 07/01/18 12:50 WBC RBC Hgb Hct MCV MCH MCHC RDW Plt Count MPV Neut % (Auto) Lymph % (Auto) [place] % (Auto) Eos % (Auto) Baso % (Auto) Lymph # (Auto) [place] # (Auto) Eos # (Auto) Baso # (Auto) Absolute Neuts (auto) ESR PT INR APTT Sodium Potassium Chloride Carbon Dioxide Anion Gap BUN Creatinine Est GFR ( Amer) Est GFR (Non-Af Amer) Random Glucose Calcium Magnesium Total Bilirubin AST ALT Alkaline Phosphatase Troponin I C-React Prot High Sens Total Protein Albumin Globulin Albumin/Globulin Ratio Lipase Urine Color Urine Appearance Urine pH Ur Specific [place] Urine Protein Urine Glucose (UA) Urine Ketones Urine Blood Urine Nitrate Urine Bilirubin Urine Urobilinogen Ur Leukocyte Esterase Urine RBC Urine WBC Ur Epithelial Cells Amorphous Sediment Urine Bacteria Blood Type B POSITIVE Antibody Screen Negative BBK History Checked Patient has bt Attending/Attestation - Attestation I have personally seen and examined this patient.: Yes I have fully participated in the care of the patient.: Yes I have reviewed all pertinent clinical information: Yes Notes (Text): This patient was seen and evaluated along with the resident here earlier. This is an addendum to the GI consultation report dictated by the resident. This 43-year-old patient with the probable ulcerative colitis and C. difficile colitis in the past was in the hospital a month ago. She was started on Asacol and Rowasa enema doing much better patient was treated with the Vanco enema and p.o. Vanco for severe C. difficile colitis in addition. Patient had a co lonoscopy earlier and a flex sig recently. Biopsy showed cryptitis suggestive of inflammatory bowel disease. . IBD serology revealed mild elevated ASCA IgG titer. C-reactive disease profile negative. Biopsy of the sigmoid suggestive of cryptitis Probably this patient has combination of background inflammatory bowel disease with over added C. difficile colitis in the past. Patient complains of significant pain yesterday and a recurrence of diarrhea. She is also concerned about bleeding per rectum. Patient ran out of the medication more than 3 days ago and was not taking it not taking it. Patient does have mild elevated leukocytosis significant tenderness mainly in the left lower quadrant area. CT scan was reviewed Would request 1. Stool for C. difficile and culture 2. IV Flagyl and p.o. Vanco 3. Mesalamine 800 mg p.o. every 8hr 4. Consider flex sig on Sunday based on the clinical course 5. Clear liquid diet I did have a detailed discussion with the patient explaining about the clinical condition including the chronicity and the importance of compliance and follow- up 07/01/18 20:14
[2018-07-01] MEDS: Mesalamine 800 mg DR Tab PO SCH (21:38)
[2018-07-01] MEDS ORDERED: Pneumococcal 23-Valent Vaccine IM ONE (21:41)
[2018-07-01] MEDS ORDERED: Sodium Chloride 0.9% 1,000 ML IV SCH (22:30)
[2018-07-01] MEDS: metroNIDAZOLE IV 500 mg/100 ml 500 MG/100 ML BAG IVPB SCH (22:36)
[2018-07-01] MEDS: Vancomycin 25 MG/ML PO SCH (22:43)
[2018-07-02] MEDS ORDERED: Melatonin 3 MG Tab PO STA (02:29)
[2018-07-02] MEDS: metroNIDAZOLE IV 500 mg/100 ml 500 MG/100 ML BAG IVPB SCH ×3 (05:05→22:24)
[2018-07-02 06:31] LABS: MEAN CELL VOLUME 75.5 fl (80.0-105.0); MEAN CORPUSCULAR HEMOGLOBIN 23.7 pg (25.0-35.0); MEAN CORPUSCULAR HGB CONC 31.3 g/dl (31.0-37.0); MEAN PLATELET VOLUME 8.6 fl (7.0-11.0); RBC 3.76 10^6/uL (3.5-6.1); RED CELL DISTRIBUTION WIDTH 14.2 % (11.5-14.5); WHITE BLOOD COUNT 9.2 10^3/uL (4.5-11.0)
[2018-07-02 07:12] LABS: ALB/GLOB RATIO 0.8 (1.1-1.8); ALT/SGPT 11 U/L (7-56); AST/SGOT 27 U/L (14-36); BLOOD UREA NITROGEN 5 mg/dL (7-21); CALCIUM 8.1 mg/dL (8.4-10.5); GFR NON-AFRICAN AMERICAN > 60
[2018-07-02 07:21] LABS: HEMOGLOBIN 8.9 g/dL (12.0-16.0)
[2018-07-02 07:37] LABS: IRON 15 ug/dL (45-180)
[2018-07-02 07:46] LABS: % IRON SATURATION 4 % (20-55); TOTAL IRON BINDING CAPACITY 343 ug/dL (265-497)
[2018-07-02] MEDS: Vancomycin 25 MG/ML PO SCH ×3 (09:45→21:51)
[2018-07-02] MEDS: Mesalamine 800 mg DR Tab PO SCH ×3 (09:50→18:08)
--- NOTE | 2018-07-02 13:10 | CP.PCM.PN ---
<Irwin Smart - Last Filed: 07/02/18 13:28> Subjective - Date & Time of Evaluation Date of Evaluation: 07/02/18 Time of Evaluation: 08:40 - Subjective Subjective: PGY6 GI Fellow Progress Note Patient seen and examined bedside this morning. The patient is very emotional and rather labile. States she has ongoing abdominal pain though improved from yesterday. Continues to have diarrhea, roughly 4-5 episodes since last night. On e episode of spots of blood noted in stool last night. No events today. 12 system ROS performed and negative except where stated Objective - Vital Signs/Intake and Output Vital Signs (last 24 hours): Temp Pulse Resp BP Pulse Ox 102.5 F H 113 H 20 120/80 96 07/02/18 08:13 07/02/18 08:13 07/02/18 08:13 07/02/18 08:13 07/02/18 08:13 Intake and Output: 07/02/18 07/02/18 06:59 18:59 Intake Total 1250 Balance 1250 - Medications Medications: Current Medications Acetaminophen (Tylenol 325mg Tab) 650 mg PO Q4H PRN PRN Reason: Fever >100.4 F Last Admin: 07/02/18 09:44 Dose: 650 mg Metronidazole (Flagyl) 500 mg in 100 mls @ 100 mls/hr IVPB Q8 [facility]; Protocol Last Admin: 07/02/18 05:05 Dose: 100 mls/hr Mesalamine (Asacol Hd 800mg) 800 mg PO TID [facility] Last Admin: 07/02/18 09:50 Dose: 800 mg Mesalamine (Rowasa Enema) 4 gm RC HS [facility] Last Admin: 07/01/18 22:38 Dose: 4 gm Ondansetron HCl (Zofran Inj) 4 mg IVP Q6H PRN PRN Reason: Nausea/Vomiting Last Admin: 07/02/18 05:03 Dose: 4 mg Pantoprazole Sodium (Protonix Inj) 40 mg IVP DAILY [facility] Vancomycin HCl (Vancocin 25 Mg/Ml (Oral Use)) 125 mg PO QID [facility]; Protocol Last Admin: 07/02/18 09:45 Dose: 125 mg - Labs Labs: 07/02/18 06:00 07/02/18 06:00 PT 13.9 SECONDS (9.4-12.5) H 07/01/18 12:50 INR 1.23 07/01/18 12:50 APTT 31.4 Seconds (26.9-38.3) 07/01/18 12:50 - Constitutional Appears: Non-toxic, No Acute Distress - Eye Exam Eye Exam: EOMI, PERRL - ENT Exam ENT Exam: Mucous Membranes Moist - Respiratory Exam Respiratory Exam: Clear to Ausculation Bilateral. absent: Rales, Rhonchi, Wheezes - Cardiovascular Exam Cardiovascular Exam: RRR, +S1, +S2 - GI/Abdominal Exam GI & Abdominal Exam: Guarding, Soft, Tenderness (diffusely), Normal Bowel Sounds. absent: Distended, Firm, Rigid, Mass, Organomegaly - Extremities Exam Extremities Exam: Normal Inspection. absent: Pedal Edema - Neurological Exam Neurological Exam: Alert, Awake, Oriented x3 - Psychiatric Exam Psychiatric exam: Anxious - Skin Skin Exam: Dry, Warm Assessment and Plan - Assessment and Plan (Free Text) Assessment: Patient is a 43yo female with PMHx significant for C diff colitis and probable ulcerative colitis who presented to the ED with abdominal pain and diarrhea -Pancolitis -Suspected inflammatory bowel disease -H/O recent C diff infection Plan: -Recent flex sig biopsies with cryptitis suggestive of inflammatory bowel disease -Pain and diarrhea modestly improved today -Ongoing analgesia per primary service -Recommend continued use of antibiotic therapy with IV Flagyl/PO Vancomycin given recent C diff infection and recurrent diarrhea/pancolitis -C diff toxin/antigen noted to be negative -Continue Mesalamine and Rowasa as ordered -Will consider repeat flex sig if no improvement noted -Continue clear liquid diet <Lucy,Kovil V - Last Filed: 07/03/18 20:15> Objective - Vital Signs/Intake and Output Vital Signs (last 24 hours): Temp Pulse Resp BP Pulse Ox 100 F H 89 18 94/66 L 97 07/02/18 16:32 07/02/18 16:32 07/02/18 16:32 07/02/18 16:32 07/02/18 16:32 Intake and Output: 07/02/18 07/03/18 18:59 06:59 Intake Total 1320 Balance 1320 - Medications Medications: Current Medications Acetaminophen (Tylenol 325mg Tab) 650 mg PO Q4H PRN PRN Reason: Fever >100.4 F Last Admin: 07/03/18 05:11 Dose: 650 mg Metronidazole (Flagyl) 500 mg in 100 mls @ 100 mls/hr IVPB Q8 [facility]; Protocol Last Admin: 07/03/18 05:12 Dose: 100 mls/hr Sodium Chloride (Sodium Chloride 0.9%) 500 mls @ 100 mls/hr IV .Q5H [facility] Mesalamine (Asacol Hd 800mg) 800 mg PO TID [facility] Last Admin: 07/02/18 18:08 Dose: 800 mg Mesalamine (Rowasa Enema) 4 gm RC HS [facility] Last Admin: 07/02/18 21:50 Dose: 4 gm Morphine Sulfate (Morphine) 1 mg IVP Q6H PRN PRN Reason: Pain, severe (8-10) Last Admin: 07/02/18 22:17 Dose: 1 mg Ondansetron HCl (Zofran Inj) 4 mg IVP Q6H PRN PRN Reason: Nausea/Vomiting Last Admin: 07/02/18 22:18 Dose: 4 mg Pantoprazole Sodium (Protonix Inj) 40 mg IVP DAILY [facility] Vancomycin HCl (Vancocin 25 Mg/Ml (Oral Use)) 125 mg PO QID [facility]; Protocol Last Admin: 07/02/18 21:51 Dose: 125 mg - Labs Labs: 07/02/18 06:00 07/02/18 06:00 PT 13.9 SECONDS (9.4-12.5) H 07/01/18 12:50 INR 1.23 07/01/18 12:50 APTT 31.4 Seconds (26.9-38.3) 07/01/18 12:50 Attending/Attestation - Attestation I have personally seen and examined this patient.: Yes I have fully participated in the care of the patient.: Yes I have reviewed all pertinent clinical information, including history, physical exam and plan: Yes Notes (Text): This is an addendum to the GI progress report dictated by the fellow. The patient was seen and evaluated earlier. Patient was feeling slightly better. If no significant continuous improvement will consider repeating flex sig. Continue the present regimen with the mesalamine any mass IV Flagyl and p.o. vancomycin. 07/03/18 06:24 07/03/18 20:14
[2018-07-02] MEDS: Morphine 2 mg/ml ISec IVP PRN ×2 (13:30→22:17)
--- NOTE | 2018-07-02 13:40 | CP.PCM.PN ---
<Jerilyn Juarez - Last Filed: 07/02/18 14:01> Subjective - Date & Time of Evaluation Date of Evaluation: 07/02/18 Time of Evaluation: 11:30 - Subjective Subjective: Jerilyn Juarez PGY1 [facility] Medicine Progress Note Patient seen and examined at bedside this morning. No acute events reported overnight. Patient states abdominal pain is slightly improved from yesterday and admits to blood tinged diarrhea episodes overnight. She denies CP, SOB, urinary complaints, numbness, tingling and headaches. Plan for flex sig tomorrow. Objective - Vital Signs/Intake and Output Vital Signs (last 24 hours): Temp Pulse Resp BP Pulse Ox 102.5 F H 113 H 20 120/80 96 07/02/18 08:13 07/02/18 08:13 07/02/18 08:13 07/02/18 08:13 07/02/18 08:13 Intake and Output: 07/02/18 07/02/18 06:59 18:59 Intake Total 1250 Balance 1250 - Medications Medications: Current Medications Acetaminophen (Tylenol 325mg Tab) 650 mg PO Q4H PRN PRN Reason: Fever >100.4 F Last Admin: 07/02/18 09:44 Dose: 650 mg Metronidazole (Flagyl) 500 mg in 100 mls @ 100 mls/hr IVPB Q8 [facility]; Protocol Last Admin: 07/02/18 05:05 Dose: 100 mls/hr Mesalamine (Asacol Hd 800mg) 800 mg PO TID [facility] Last Admin: 07/02/18 09:50 Dose: 800 mg Mesalamine (Rowasa Enema) 4 gm RC HS [facility] Last Admin: 07/01/18 22:38 Dose: 4 gm Morphine Sulfate (Morphine) 1 mg IVP Q6H PRN PRN Reason: Pain, severe (8-10) Ondansetron HCl (Zofran Inj) 4 mg IVP Q6H PRN PRN Reason: Nausea/Vomiting Last Admin: 07/02/18 05:03 Dose: 4 mg Pantoprazole Sodium (Protonix Inj) 40 mg IVP DAILY [facility] Vancomycin HCl (Vancocin 25 Mg/Ml (Oral Use)) 125 mg PO QID [facility]; Protocol Last Admin: 07/02/18 09:45 Dose: 125 mg - Labs Labs: 07/02/18 06:00 07/02/18 06:00 PT 13.9 SECONDS (9.4-12.5) H 07/01/18 12:50 INR 1.23 07/01/18 12:50 APTT 31.4 Seconds (26.9-38.3) 07/01/18 12:50 - Constitutional Appears: Non-toxic, No Acute Distress - Head Exam Head Exam: ATRAUMATIC, NORMAL INSPECTION - Eye Exam Eye Exam: EOMI Pupil Exam: PERRL - ENT Exam ENT Exam: Mucous Membranes Moist - Neck Exam Neck Exam: Normal Inspection - Respiratory Exam Respiratory Exam: Clear to Ausculation Bilateral. absent: Accessory Muscle Use, Wheezes, Respiratory Distress - Cardiovascular Exam Cardiovascular Exam: REGULAR RHYTHM, +S1, +S2. absent: Tachycardia - GI/Abdominal Exam GI & Abdominal Exam: Soft, Tenderness, Normal Bowel Sounds. absent: Guarding, Rigid Additional comments: diffuse abdominal tenderness noted with deep palpation - Extremities Exam Extremities Exam: Normal Inspection. absent: Calf Tenderness, Tenderness - Back Exam Back Exam: NORMAL INSPECTION - Neurological Exam Neurological Exam: Alert, CN II-XII Intact, Oriented x3 - Skin Skin Exam: Normal Color, Warm Assessment and Plan - Assessment and Plan (Free Text) Assessment: This is a 43 year old female with PMH of ulcerative colitis and recurrent c diff colitis presenting to the hospital with diffuse abdominal pain associated with bloody diarrhea and found to have pancolitis on CTAP. Plan for flex sig tomorrow. Plan: Pancolitis -CTAP 5/6 showed pérez colitis sparing only the cecum. Circumferential mural thickening is noted without significant pericolonic stranding -consider ulcerative colitis flare component due to history of medication non compliance -WBC is downtrending -continue flagyl IV and PO vancomycin day 2 -continue mesalamine enema QHS, MESALAMINE 800 po tid -cdiff toxin/antigen pending -lipase, LFT wnl -continue clear liquid diet -continue omeprazol, zofran prn -morphine 2 mg q6 prn -GI following, Dr. Ayala -plan for flex sigmoidscopy tomorrow -flex-sig 05/10/18- showing severe colitis, pseudomembranous colitis -celiac disease and c.diff serologies are negative .Pathology shows chronic active colitis (moderate w/ cryptitis, focal crypt abscesses) w/o granulomas and no malignancy( admission) Hypokalemia - resolved -monitor Iron Deficiency Anemia: -hemoglobin is 8.9 from 10.9 -iron and ferritin noted to be low, consistent with iron deficiency anemia PPX: DVT: SCD GI: protonix CLD Case reviewed and plan discussed with Dr Gupta <Taj Gupta - Last Filed: 07/02/18 14:25> Objective - Vital Signs/Intake and Output Vital Signs (last 24 hours): Temp Pulse Resp BP Pulse Ox 102.5 F H 113 H 20 120/80 96 07/02/18 08:13 07/02/18 08:13 07/02/18 08:13 07/02/18 08:13 07/02/18 08:13 Intake and Output: 07/02/18 07/02/18 06:59 18:59 Intake Total 1250 Balance 1250 - Medications Medications: Current Medications Acetaminophen (Tylenol 325mg Tab) 650 mg PO Q4H PRN PRN Reason: Fever >100.4 F Last Admin: 07/02/18 09:44 Dose: 650 mg Metronidazole (Flagyl) 500 mg in 100 mls @ 100 mls/hr IVPB Q8 [facility]; Protocol Last Admin: 07/02/18 05:05 Dose: 100 mls/hr Mesalamine (Asacol Hd 800mg) 800 mg PO TID [facility] Last Admin: 07/02/18 09:50 Dose: 800 mg Mesalamine (Rowasa Enema) 4 gm RC HS [facility] Last Admin: 07/01/18 22:38 Dose: 4 gm Morphine Sulfate (Morphine) 1 mg IVP Q6H PRN PRN Reason: Pain, severe (8-10) Ondansetron HCl (Zofran Inj) 4 mg IVP Q6H PRN PRN Reason: Nausea/Vomiting Last Admin: 07/02/18 05:03 Dose: 4 mg Pantoprazole Sodium (Protonix Inj) 40 mg IVP DAILY [facility] Vancomycin HCl (Vancocin 25 Mg/Ml (Oral Use)) 125 mg PO QID [facility]; Protocol Last Admin: 07/02/18 09:45 Dose: 125 mg - Labs Labs: 07/02/18 06:00 07/02/18 06:00 PT 13.9 SECONDS (9.4-12.5) H 07/01/18 12:50 INR 1.23 07/01/18 12:50 APTT 31.4 Seconds (26.9-38.3) 07/01/18 12:50 Attending/Attestation - Attestation I have personally seen and examined this patient.: Yes I have fully participated in the care of the patient.: Yes I have reviewed all pertinent clinical information, including history, physical exam and plan: Yes Notes (Text): 07/02/18 14:21 43 year old female with past medical history of ulcerative colitis and CDif colitis who presented with complaint of abdominal pain and bloody diarrhea. CT abd/pelvis showed nonspecific colitis. Patient was started on iv flagyl, po vanco, asacol and rowasa enema as per GI. Symptoms are slightly improved as per patient. Leukocytosis has improved and hypokalemia is resolved. CDif study was negative. Anemia workup is consistent with iron deficiency anemia; discussed with patient regarding started iron supplementation. Continue with clear liquid diet as tolerated. She is on zofran and morphine prn. GI is following and plan is for possible flexible sigmoidoscopy tomorrow. Taj Gupta MD Hospitalist.
[2018-07-02] MEDS ORDERED: DiphenhydrAMINE 50 mg/ml Inj IVP STA (15:35)
[2018-07-02 16:33] VITALS: PULSE 89
[2018-07-02] MEDS ORDERED: Sodium Chloride 0.9% 500 ML IV SCH (23:15)
[2018-07-03] MEDS: metroNIDAZOLE IV 500 mg/100 ml 500 MG/100 ML BAG IVPB SCH ×3 (05:12→21:44)
[2018-07-03 06:45] LABS: HEMOGLOBIN 9.4 g/dL (12.0-16.0); MEAN CELL VOLUME 75.8 fl (80.0-105.0); MEAN CORPUSCULAR HGB CONC 31.6 g/dl (31.0-37.0); MEAN PLATELET VOLUME 9.2 fl (7.0-11.0); RBC 3.92 10^6/uL (3.5-6.1); RED CELL DISTRIBUTION WIDTH 14.8 % (11.5-14.5); WHITE BLOOD COUNT 9.1 10^3/uL (4.5-11.0)
[2018-07-03 06:54] LABS: ALB/GLOB RATIO 0.8 (1.1-1.8); ALBUMIN 3.1 g/dL (3.0-4.8); ALT/SGPT 8 U/L (7-56); AST/SGOT 32 U/L (14-36); BLOOD UREA NITROGEN 5 mg/dL (7-21); CALCIUM 8.2 mg/dL (8.4-10.5); GFR NON-AFRICAN AMERICAN > 60
[2018-07-03] MEDS: Mesalamine 800 mg DR Tab PO SCH ×3 (10:53→18:07)
--- NOTE | 2018-07-03 11:08 | CP.PCM.PN ---
<Hector Aranda - Last Filed: 07/03/18 19:01> Subjective - Date & Time of Evaluation Date of Evaluation: 07/03/18 Time of Evaluation: 11:03 - Subjective Subjective: Hector Aranda Internal Medicine Resident- Progress Note on Behalf of Dr. Ayala Subjective: Patient seen and examined bedside this morning. States she continued to have several small bowel movements overnight. Admits to blood in bowel movements. States abdominal pain has significantly improved relative to baseline. Admits to nausea. Requesting food. Denies fever, chills, chest pain, vomiting, and constipation. 12 point ROS negative other than stated above Physical Examination: - Constitutional Appears: No acute distress - Head Exam Head Exam: ATRAUMATIC, NORMAL INSPECTION, NORMOCEPHALIC - Eye Exam Eye Exam: EOMI, Normal appearance - ENT Exam ENT Exam: Mucous Membranes Dry - Neck Exam Neck exam: Positive for: Normal Inspection - Respiratory Exam Respiratory Exam: Clear to Auscultation Bilateral, NORMAL BREATHING PATTERN - Cardiovascular Exam Cardiovascular Exam: REGULAR RHYTHM, +S1, +S2. absent: Gallop, Rubs - GI/Abdominal Exam GI & Abdominal Exam: Soft, Tenderness (diffusely), Normal Bowel Sounds - Extremities Exam Extremities exam: Positive for: normal inspection - Neurological Exam Neurological exam: Alert, CN II-XII Intact, Oriented x3 - Skin Skin Exam: Dry, Intact, Normal Color, Warm Assessment and Plan: Patient is a 43yo female with PMHx significant for C diff colitis and probable ulcerative colitis who was admitted for evaluation and treatment of abdominal pain and diarrhea. Abdominal pain- Pancolitis, Suspected inflammatory bowel disease Hx of pseudomembranous enterocolitis - 05/22/2018 Flex Sig- pseudomembranous enterocolitis, diffuse severe inflammation of the rectum and sigmoid colon - 07/01/[address] without contrast- Nonspecific pérez colitis - continue regular diet - continue vancomyin PO and flagyl IV - blood culture negative x 2 after 48 hours - c diff studies negative - complete Rowasa enema - continue home mesalamine - pain control Patient seen, case discussed with, and plan approved by attending physician, Dr. Ayala. Objective - Vital Signs/Intake and Output Vital Signs (last 24 hours): Temp Pulse Resp BP Pulse Ox 100 F H 89 18 94/66 L 97 07/02/18 16:32 07/02/18 16:32 07/02/18 16:32 07/02/18 16:32 07/02/18 16:32 Intake and Output: 07/03/18 07/03/18 06:59 18:59 Intake Total 1440 Balance 1440 - Medications Medications: Current Medications Acetaminophen (Tylenol 325mg Tab) 650 mg PO Q4H PRN PRN Reason: Fever >100.4 F Last Admin: 07/03/18 05:11 Dose: 650 mg Metronidazole (Flagyl) 500 mg in 100 mls @ 100 mls/hr IVPB Q8 [facility]; Protocol Last Admin: 07/03/18 05:12 Dose: 100 mls/hr Sodium Chloride (Sodium Chloride 0.9%) 500 mls @ 100 mls/hr IV .Q5H [facility] Mesalamine (Asacol Hd 800mg) 800 mg PO TID [facility] Last Admin: 07/03/18 10:53 Dose: 800 mg Mesalamine (Rowasa Enema) 4 gm RC HS [facility] Last Admin: 07/02/18 21:50 Dose: 4 gm Morphine Sulfate (Morphine) 1 mg IVP Q6H PRN PRN Reason: Pain, severe (8-10) Last Admin: 07/02/18 22:17 Dose: 1 mg Ondansetron HCl (Zofran Inj) 4 mg IVP Q6H PRN PRN Reason: Nausea/Vomiting Last Admin: 07/03/18 10:54 Dose: 4 mg Pantoprazole Sodium (Protonix Inj) 40 mg IVP DAILY [facility] Last Admin: 07/03/18 10:53 Dose: 40 mg Vancomycin HCl (Vancocin 25 Mg/Ml (Oral Use)) 125 mg PO QID [facility]; Protocol Last Admin: 07/02/18 21:51 Dose: 125 mg - Labs Labs: 07/03/18 06:10 07/03/18 06:10 PT 13.9 SECONDS (9.4-12.5) H 07/01/18 12:50 INR 1.23 07/01/18 12:50 APTT 31.4 Seconds (26.9-38.3) 07/01/18 12:50 <Lucy,Kovil V - Last Filed: 07/03/18 20:17> Objective - Vital Signs/Intake and Output Vital Signs (last 24 hours): Temp Pulse Resp BP Pulse Ox 97.3 F L 89 18 94/66 L 97 07/03/18 12:26 07/02/18 16:32 07/02/18 16:32 07/02/18 16:32 07/02/18 16:32 - Medications Medications: Current Medications Acetaminophen (Tylenol 325mg Tab) 650 mg PO Q4H PRN PRN Reason: Fever >100.4 F Last Admin: 07/03/18 05:11 Dose: 650 mg Metronidazole (Flagyl) 500 mg in 100 mls @ 100 mls/hr IVPB Q8 [facility]; Protocol Last Admin: 07/03/18 14:40 Dose: 100 mls/hr Mesalamine (Asacol Hd 800mg) 800 mg PO TID [facility] Last Admin: 07/03/18 18:07 Dose: 800 mg Mesalamine (Rowasa Enema) 4 gm RC HS [facility] Last Admin: 07/02/18 21:50 Dose: 4 gm Morphine Sulfate (Morphine) 1 mg IVP Q6H PRN PRN Reason: Pain, severe (8-10) Last Admin: 07/02/18 22:17 Dose: 1 mg Ondansetron HCl (Zofran Inj) 4 mg IVP Q6H PRN PRN Reason: Nausea/Vomiting Last Admin: 07/03/18 10:54 Dose: 4 mg Pantoprazole Sodium (Protonix Inj) 40 mg IVP DAILY [facility] Last Admin: 07/03/18 10:53 Dose: 40 mg Vancomycin HCl (Vancocin 25 Mg/Ml (Oral Use)) 125 mg PO QID [facility]; Protocol Last Admin: 07/03/18 17:57 Dose: Not Given - Labs Labs: 07/03/18 06:10 07/03/18 06:10 PT 13.9 SECONDS (9.4-12.5) H 07/01/18 12:50 INR 1.23 07/01/18 12:50 APTT 31.4 Seconds (26.9-38.3) 07/01/18 12:50 Attending/Attestation - Attestation I have personally seen and examined this patient.: Yes I have fully participated in the care of the patient.: Yes I have reviewed all pertinent clinical information, including history, physical exam and plan: Yes Notes (Text): The patient was seen and evaluated along with the resident earlier today. This is an addendum to the GI progress note dictated by the resident. Patient's sister was at bedside. Patient overall feeling better. Diet diet has been advanced to slowly. Diarrhea is also slowing down. The importance of long-term follow-up and complaints of medications was explained to the patient and also patient's sister was with the patient at the request of the patient. 07/03/18 20:15
--- NOTE | 2018-07-03 12:20 | CP.PCM.PN ---
<Jerilyn Juarez - Last Filed: 07/03/18 12:13> Subjective - Date & Time of Evaluation Date of Evaluation: 07/03/18 Time of Evaluation: 10:15 - Subjective Subjective: Jerilyn Juarez PGY1 [facility] Medicine Progress Note Patient seen and examined at bedside this morning. No acute events reported overnight. Patient states abdominal pain and diarrhea is improved and she is requesting advancement of diet. She denies CP/SOB/bloody BM/urinary complaints. Plan to advance diet for dinner. Objective - Vital Signs/Intake and Output Vital Signs (last 24 hours): Temp Pulse Resp BP Pulse Ox 100 F H 89 18 94/66 L 97 07/02/18 16:32 07/02/18 16:32 07/02/18 16:32 07/02/18 16:32 07/02/18 16:32 Intake and Output: 07/03/18 07/03/18 06:59 18:59 Intake Total 1440 Balance 1440 - Medications Medications: Current Medications Acetaminophen (Tylenol 325mg Tab) 650 mg PO Q4H PRN PRN Reason: Fever >100.4 F Last Admin: 07/03/18 05:11 Dose: 650 mg Metronidazole (Flagyl) 500 mg in 100 mls @ 100 mls/hr IVPB Q8 [facility]; Protocol Last Admin: 07/03/18 05:12 Dose: 100 mls/hr Sodium Chloride (Sodium Chloride 0.9%) 500 mls @ 100 mls/hr IV .Q5H [facility] Mesalamine (Asacol Hd 800mg) 800 mg PO TID [facility] Last Admin: 07/03/18 10:53 Dose: 800 mg Mesalamine (Rowasa Enema) 4 gm RC HS [facility] Last Admin: 07/02/18 21:50 Dose: 4 gm Morphine Sulfate (Morphine) 1 mg IVP Q6H PRN PRN Reason: Pain, severe (8-10) Last Admin: 07/02/18 22:17 Dose: 1 mg Ondansetron HCl (Zofran Inj) 4 mg IVP Q6H PRN PRN Reason: Nausea/Vomiting Last Admin: 07/03/18 10:54 Dose: 4 mg Pantoprazole Sodium (Protonix Inj) 40 mg IVP DAILY [facility] Last Admin: 07/03/18 10:53 Dose: 40 mg Vancomycin HCl (Vancocin 25 Mg/Ml (Oral Use)) 125 mg PO QID [facility]; Protocol Last Admin: 07/02/18 21:51 Dose: 125 mg - Labs Labs: 07/03/18 06:10 07/03/18 06:10 PT 13.9 SECONDS (9.4-12.5) H 07/01/18 12:50 INR 1.23 07/01/18 12:50 APTT 31.4 Seconds (26.9-38.3) 07/01/18 12:50 - Constitutional Appears: Non-toxic, No Acute Distress - Head Exam Head Exam: ATRAUMATIC, NORMAL INSPECTION - Eye Exam Eye Exam: EOMI Pupil Exam: PERRL - ENT Exam ENT Exam: Mucous Membranes Moist - Neck Exam Neck Exam: Normal Inspection - Respiratory Exam Respiratory Exam: Clear to Ausculation Bilateral. absent: Accessory Muscle Use, Wheezes, Respiratory Distress - Cardiovascular Exam Cardiovascular Exam: REGULAR RHYTHM, +S1, +S2. absent: Tachycardia - GI/Abdominal Exam GI & Abdominal Exam: Soft, Tenderness, Normal Bowel Sounds. absent: Guarding, Rigid Additional comments: minimal abdominal tenderness with deep palpation - Extremities Exam Extremities Exam: Normal Inspection. absent: Calf Tenderness, Tenderness - Back Exam Back Exam: NORMAL INSPECTION - Neurological Exam Neurological Exam: Alert, CN II-XII Intact, Oriented x3 - Skin Skin Exam: Normal Color, Warm Assessment and Plan - Assessment and Plan (Free Text) Assessment: This is a 43 year old female with PMH of ulcerative colitis and recurrent c diff colitis presenting to the hospital with diffuse abdominal pain associated with bloody diarrhea and found to have pancolitis on CTAP. Will advance to MND for lunch and if tolerates, regular diet for dinner. Discharge planning for this week. Plan: Pancolitis -continue mesalamine enema QHS, MESALAMINE 800 po tid. Working with GI team /hotel assistant manager for discharge medications as patient does not have insurance -CTAP / showed pérez colitis sparing only the cecum. Circumferential mural thickening is noted without significant pericolonic stranding -consider ulcerative colitis flare component due to history of medication non compliance -continue flagyl IV and PO vancomycin day 3 -cdiff toxin/antigen negative -continue omeprazol, zofran prn -morphine 2 mg q6 prn -GI following, Dr. Ayala -flex-sig 05/10/18- showing severe colitis, pseudomembranous colitis -celiac disease and c.diff serologies are negative .Pathology shows chronic active colitis (moderate w/ cryptitis, focal crypt abscesses) w/o granulomas and no malignancy( admission) -advance to FLD for lunch, regular diet for dinner Hypokalemia - resolved -monitor Iron Deficiency Anemia: -hemoglobin is 9.4 from 8.9 -iron and ferritin noted to be low, consistent with iron deficiency anemia PPX: DVT: SCD GI: protonix FLD Patient seen and case discussed with Dr Gupta <Taj Gupta - Last Filed: 07/03/18 12:26> Objective - Vital Signs/Intake and Output Vital Signs (last 24 hours): Temp Pulse Resp BP Pulse Ox 100 F H 89 18 94/66 L 97 07/02/18 16:32 07/02/18 16:32 07/02/18 16:32 07/02/18 16:32 07/02/18 16:32 Intake and Output: 07/03/18 07/03/18 06:59 18:59 Intake Total 1440 Balance 1440 - Medications Medications: Current Medications Acetaminophen (Tylenol 325mg Tab) 650 mg PO Q4H PRN PRN Reason: Fever >100.4 F Last Admin: 07/03/18 05:11 Dose: 650 mg Metronidazole (Flagyl) 500 mg in 100 mls @ 100 mls/hr IVPB Q8 [facility]; Protocol Last Admin: 07/03/18 05:12 Dose: 100 mls/hr Sodium Chloride (Sodium Chloride 0.9%) 500 mls @ 100 mls/hr IV .Q5H [facility] Mesalamine (Asacol Hd 800mg) 800 mg PO TID [facility] Last Admin: 07/03/18 10:53 Dose: 800 mg Mesalamine (Rowasa Enema) 4 gm RC HS [facility] Last Admin: 07/02/18 21:50 Dose: 4 gm Morphine Sulfate (Morphine) 1 mg IVP Q6H PRN PRN Reason: Pain, severe (8-10) Last Admin: 07/02/18 22:17 Dose: 1 mg Ondansetron HCl (Zofran Inj) 4 mg IVP Q6H PRN PRN Reason: Nausea/Vomiting Last Admin: 07/03/18 10:54 Dose: 4 mg Pantoprazole Sodium (Protonix Inj) 40 mg IVP DAILY [facility] Last Admin: 07/03/18 10:53 Dose: 40 mg Vancomycin HCl (Vancocin 25 Mg/Ml (Oral Use)) 125 mg PO QID [facility]; Protocol Last Admin: 07/02/18 21:51 Dose: 125 mg - Labs Labs: 07/03/18 06:10 07/03/18 06:10 PT 13.9 SECONDS (9.4-12.5) H 07/01/18 12:50 INR 1.23 07/01/18 12:50 APTT 31.4 Seconds (26.9-38.3) 07/01/18 12:50 Attending/Attestation - Attestation I have personally seen and examined this patient.: Yes I have fully participated in the care of the patient.: Yes I have reviewed all pertinent clinical information, including history, physical exam and plan: Yes Notes (Text): 07/03/18 12:24 43 year old female with past medical history of ulcerative colitis and CDif colitis who presented with complaint of abdominal pain and bloody diarrhea. CT abd/pelvis showed nonspecific colitis. Patient was started on iv flagyl, po vanco, asacol and rowasa enema as per GI. Leukocytosis has improved and hypokalemia is resolved. CDif study was negative. Anemia workup consistent with iron deficiency anemia; discussed with patient regarding started iron supplementation. GI is following and plan was for possible flexible sigmoidoscopy today. However patient is refusing requesting to advance diet as her symptoms have improved. Diet advanced to full liquids as per GI. Advance further for dinner if tolerated. Last fever was yesterday. Cultures are negative to date. Patient is on antibiotics as above. Taj Gupta MD Hospitalist.
[2018-07-03] MEDS: Vancomycin 25 MG/ML PO SCH ×3 (14:41→21:50)
[2018-07-03] MEDS: Morphine 2 mg/ml ISec IVP PRN (21:43)
[2018-07-04 06:26] LABS: HEMOGLOBIN 9.3 g/dL (12.0-16.0); MEAN CELL VOLUME 74.7 fl (80.0-105.0); MEAN CORPUSCULAR HEMOGLOBIN 23.3 pg (25.0-35.0); MEAN CORPUSCULAR HGB CONC 31.2 g/dl (31.0-37.0); MEAN PLATELET VOLUME 8.5 fl (7.0-11.0); RBC 3.99 10^6/uL (3.5-6.1); RED CELL DISTRIBUTION WIDTH 14.3 % (11.5-14.5); WHITE BLOOD COUNT 10.8 10^3/uL (4.5-11.0)
[2018-07-04] MEDS: metroNIDAZOLE IV 500 mg/100 ml 500 MG/100 ML BAG IVPB SCH (06:27)
[2018-07-04 06:46] LABS: ALB/GLOB RATIO 0.8 (1.1-1.8); ALBUMIN 2.9 g/dL (3.0-4.8); ALT/SGPT 15 U/L (7-56); AST/SGOT 33 U/L (14-36); BLOOD UREA NITROGEN 5 mg/dL (7-21); CALCIUM 8.1 mg/dL (8.4-10.5); GFR NON-AFRICAN AMERICAN > 60
[2018-07-04] MEDS: Morphine 2 mg/ml ISec IVP PRN (07:57)
[2018-07-04] MEDS ORDERED: Potassium Chloride 20 mEq ER Tab PO STA (08:29)
[2018-07-04] MEDS: Mesalamine 800 mg DR Tab PO SCH (10:31)
[2018-07-04] MEDS: Vancomycin 25 MG/ML PO SCH (10:33)
[2018-07-04 10:36] VITALS: BP 111/77; RESP 20; TEMP 98.1; O2SAT 98
--- NOTE | 2018-07-04 11:59 | CP.PCM.DIS ---
<Jerilyn Juarez - Last Filed: 07/04/18 11:53> Provider - Provider Date of Admission: 07/02/18 15:21 Attending physician: Taj Gupta MD Consults: 07/01/18 17:17 Consult [Physician Consult] Routine Comment: Consulting Provider: Vanessa Ayala V Consulting Physician: Vanessa Ayala V Reason for Consult: pancolitis Time Spent in preparation of Discharge (in minutes): 35 Hospital Course - Lab Results Lab Results: Micro Results 07/01/18 17:24 Blood Blood Culture - Preliminary NO GROWTH AFTER 48 HOURS 07/01/18 17:24 Blood Blood Culture - Preliminary NO GROWTH AFTER 48 HOURS 07/01/18 21:30 Stool C. difficile Antigen & Toxins A,B - Final Most Recent Lab Values WBC 10.8 10^3/uL (4.5-11.0) 07/04/18 06:00 RBC 3.99 10^6/uL (3.5-6.1) 07/04/18 06:00 Hgb 9.3 g/dL (12.0-16.0) L 07/04/18 06:00 Hct 29.8 % (36.0-48.0) L 07/04/18 06:00 MCV 74.7 fl (80.0-105.0) L 07/04/18 06:00 MCH 23.3 pg (25.0-35.0) L 07/04/18 06:00 MCHC 31.2 g/dl (31.0-37.0) 07/04/18 06:00 RDW 14.3 % (11.5-14.5) 07/04/18 06:00 Plt Count 504 10^3/uL (120.0-450.0) H 07/04/18 06:00 MPV 8.5 fl (7.0-11.0) 07/04/18 06:00 Neut % (Auto) 63.5 % (50.0-68.0) 07/01/18 12:50 Lymph % (Auto) 21.1 % (22.0-35.0) L 07/01/18 12:50 [place] % (Auto) 10.8 % (1.0-6.0) H 07/01/18 12:50 Eos % (Auto) 4.3 % (1.5-5.0) 07/01/18 12:50 Baso % (Auto) 0.3 % (0.0-3.0) 07/01/18 12:50 Lymph # (Auto) 3.2 (1.2-3.4) 07/01/18 12:50 [place] # (Auto) 1.6 (0.1-0.6) H 07/01/18 12:50 Eos # (Auto) 0.7 (0.0-0.7) 07/01/18 12:50 Baso # (Auto) 0.04 K/mm3 (0.0-2.0) 07/01/18 12:50 Absolute Neuts (auto) 9.53 (1.4-6.5) H 07/01/18 12:50 ESR 50 mm/hr (0.0-20.0) H 07/01/18 11:00 PT 13.9 SECONDS (9.4-12.5) H 07/01/18 12:50 INR 1.23 07/01/18 12:50 APTT 31.4 Seconds (26.9-38.3) 07/01/18 12:50 Sodium 134 mmol/L (132-148) 07/04/18 06:00 Potassium 3.1 mmol/L (3.6-5.0) L 07/04/18 06:00 Chloride 102 mmol/L (98-107) 07/04/18 06:00 Carbon Dioxide 25 mmol/L (21-33) 07/04/18 06:00 Anion Gap 10 (10-20) 07/04/18 06:00 BUN 5 mg/dL (7-21) L 07/04/18 06:00 Creatinine 0.6 mg/dl (0.7-1.2) L 07/04/18 06:00 Est GFR ( Amer) > 60 07/04/18 06:00 Est GFR (Non-Af Amer) > 60 07/04/18 06:00 Random Glucose 105 mg/dL (70-110) 07/04/18 06:00 Calcium 8.1 mg/dL (8.4-10.5) L 07/04/18 06:00 Magnesium 2.0 mg/dL (1.7-2.2) 07/01/18 12:50 Iron 15 ug/dL (45-180) L 07/02/18 07:00 TIBC 343 ug/dL (265-497) 07/02/18 07:00 % Saturation 4 % (20-55) L 07/02/18 07:00 Ferritin 16.8 ng/mL 07/02/18 07:00 Total Bilirubin 0.2 mg/dL (0.2-1.3) 07/04/18 06:00 AST 33 U/L (14-36) 07/04/18 06:00 ALT 15 U/L (7-56) 07/04/18 06:00 Alkaline Phosphatase 81 U/L (38-126) 07/04/18 06:00 Troponin I < 0.01 ng/mL 07/01/18 12:50 C-React Prot High Sens > 15.00 mg/L (1.00-3.00) H 07/01/18 11:00 Total Protein 6.5 g/dL (5.8-8.3) 07/04/18 06:00 Albumin 2.9 g/dL (3.0-4.8) L 07/04/18 06:00 Globulin 3.7 gm/dL 07/04/18 06:00 Albumin/Globulin Ratio 0.8 (1.1-1.8) L 07/04/18 06:00 Lipase 67 U/L (23-300) 07/01/18 12:50 Urine Color Yellow (YELLOW) 07/01/18 12:45 Urine Appearance Clear (CLEAR) 07/01/18 12:45 Urine pH 6.0 (4.7-8.0) 07/01/18 12:45 Ur Specific [place] 1.025 (1.005-1.035) 07/01/18 12:45 Urine Protein Trace mg/dL (<30 mg/dL) H 07/01/18 12:45 Urine Glucose (UA) Negative mg/dL (NEGATIVE) 07/01/18 12:45 Urine Ketones Negative mg/dL (NEGATIVE) 07/01/18 12:45 Urine Blood Moderate (NEGATIVE) H 07/01/18 12:45 Urine Nitrate Negative (NEGATIVE) 07/01/18 12:45 Urine Bilirubin Negative (NEGATIVE) 07/01/18 12:45 Urine Urobilinogen 0.2 E.U./dL (<1 E.U./dL) 07/01/18 12:45 Ur Leukocyte Esterase Negative Keke/uL (NEGATIVE) 07/01/18 12:45 Urine RBC 20 - 25 /hpf (0-2) H 07/01/18 12:45 Urine WBC 1 - 3 /hpf (0-6) 07/01/18 12:45 Ur Epithelial Cells 6 - 8 /hpf (0-5) H 07/01/18 12:45 Amorphous Sediment Few /hpf (NONE) 07/01/18 12:45 Urine Bacteria Mod /hpf (NONE) 07/01/18 12:45 Blood Type B POSITIVE 07/01/18 12:50 Antibody Screen Negative 07/01/18 12:50 BBK History Checked Patient has bt 07/01/18 12:50 - Constitutional Appears: Non-toxic, No Acute Distress - Head Exam Head Exam: ATRAUMATIC, NORMAL INSPECTION - Eye Exam Eye Exam: EOMI Pupil Exam: PERRL - ENT Exam ENT Exam: Mucous Membranes Moist - Neck Exam Neck Exam: Normal Inspection - Respiratory Exam Respiratory Exam: Clear to Ausculation Bilateral. absent: Accessory Muscle Use, Wheezes, Respiratory Distress - Cardiovascular Exam Cardiovascular Exam: REGULAR RHYTHM, +S1, +S2. absent: Tachycardia - GI/Abdominal Exam GI & Abdominal Exam: Soft, Tenderness, Normal Bowel Sounds. absent: Guarding, Rigid Additional comments: no abdominal tenderness with deep palpation - Extremities Exam Extremities Exam: Normal Inspection. absent: Calf Tenderness, Tenderness - Back Exam Back Exam: NORMAL INSPECTION - Neurological Exam Neurological Exam: Alert, CN II-XII Intact, Oriented x3 - Skin Skin Exam: Normal Color, Warm - Hospital Course Hospital Course: Upon admission, this is a 43 y/o female with PMH of ulcerative colitis, recurrent c diff colitis presents to the ED with diffuse abdominal pain worse in LLQ, sharp, 9/10, intermittent, radiates to the back, no alleviating or worsening factors. Pain is associated with bloody diarrhea 6-7 episodes x1 day, chills. Patient states she had a similar episode a few months ago, diagnosed with colitis/GI bleed, admitted to the hospital and was diagnosed with C. Diff. She reports running out of her meds mesalamine She denies recent sickness/sick contacts/travel, eating unusual food. She denies fever, nausea, vomiting, SOB, CP, vaginal discharge/odor, urinary symptoms, neck pain/stiffness, visual changes, headache, dizziness. During hospital course, CT A/P showed pérez colitis sparing only the cecum. Circumferential mural thickening is noted without significant pericolonic stranding and patient started on PO vancomycin and flagyl. C diff toxin and antigin were negative. Lipase was WNL. ESR noted to be elevated at 50. Patient started on IVF and patient started on mesalamine enema QHS, MESALAMINE 800 po tid. Patient initially started on CLD and she tolerated well. Patient had recent flex sig biopsies with cryptitis suggestive of inflammatory bowel disease. Patient was advanced to regular diet and patient tolerated well. Patient's abdominal pain improved and diarrhea improved as well. Patient to continue taking mesalamine enema and rowasa for three months and vancomycin for 2 weeks. Patient agrees with discharge today and all her questions were answered to ascencion hahn. Patient was explained importance of doctor follow up and medication compliance and patient verbally agreed. Patient refused blood work today to recheck low potassium after potassium noted to be low this morning. Patient to have outpatient follow up of potassium. Discharge Plan - Discharge Medications Prescriptions: Mesalamine [Rowasa Enema] 4 gm RC HS #30 nma Mesalamine [Asacol HD 800mg] 800 mg PO TID #90 tcp Vancomycin HCl [Vancocin 125 MG Cap] 125 mg PO Q6 14 Days #56 capsule - Follow Up Plan Condition: GOOD Disposition: HOME/ ROUTINE Instructions: Crohn's Disease in Adults, Acute Abdomen (Belly Pain), Inflammatory Bowel Disease (DC) Additional Instructions: Please follow up with your primary care doctor, Dr. Hernandez at [facility] within 5-7 days of discharge. As per our discussion, you prefer to call and make an appointment that is convenient for your. The clinic phone number has been provided to you. Please complete your [facility] [place] paper work. Please follow up with your chartered accountant, Dr. Ayala within 5-7 days of discharge. Please take mesalamine asacol 800mg three times a day for three months. You have been provided a script for 30 days. Please take mesalamine rowasa enema 4grm rectally at night for three months. You have been provided a script for 30 days. Please obtain refills from your primary care doctor. Please take vancomycin 125mg 4 times daily for two weeks. Please return to the ED for any new or worsening symptoms. Referrals: [facility] at [facility] [Outside] Vanessa Ayala MD [Medical Doctor] - <Taj Gupta - Last Filed: 07/04/18 13:09> Provider - Provider Date of Admission: 07/02/18 15:21 Attending physician: Taj Gupta MD Consults: 07/01/18 17:17 Consult [Physician Consult] Routine Comment: Consulting Provider: Vanessa Ayala V Consulting Physician: Vanessa Ayala V Reason for Consult: [place] Hospital Course - Lab Results Lab Results: Micro Results 07/01/18 21:30 Stool Stool Culture - Final NO SALMONELLA, SHIGELLA OR CAMPYLOBACTER ISOLATED. 07/01/18 17:24 Blood Blood Culture - Preliminary NO GROWTH AFTER 48 HOURS 07/01/18 17:24 Blood Blood Culture - Preliminary NO GROWTH AFTER 48 HOURS 07/01/18 21:30 Stool C. difficile Antigen & Toxins A,B - Final Most Recent Lab Values WBC 10.8 10^3/uL (4.5-11.0) 07/04/18 06:00 RBC 3.99 10^6/uL (3.5-6.1) 07/04/18 06:00 Hgb 9.3 g/dL (12.0-16.0) L 07/04/18 06:00 Hct 29.8 % (36.0-48.0) L 07/04/18 06:00 MCV 74.7 fl (80.0-105.0) L 07/04/18 06:00 MCH 23.3 pg (25.0-35.0) L 07/04/18 06:00 MCHC 31.2 g/dl (31.0-37.0) 07/04/18 06:00 RDW 14.3 % (11.5-14.5) 07/04/18 06:00 Plt Count 504 10^3/uL (120.0-450.0) H 07/04/18 06:00 MPV 8.5 fl (7.0-11.0) 07/04/18 06:00 Neut % (Auto) 63.5 % (50.0-68.0) 07/01/18 12:50 Lymph % (Auto) 21.1 % (22.0-35.0) L 07/01/18 12:50 [place] % (Auto) 10.8 % (1.0-6.0) H 07/01/18 12:50 Eos % (Auto) 4.3 % (1.5-5.0) 07/01/18 12:50 Baso % (Auto) 0.3 % (0.0-3.0) 07/01/18 12:50 Lymph # (Auto) 3.2 (1.2-3.4) 07/01/18 12:50 [place] # (Auto) 1.6 (0.1-0.6) H 07/01/18 12:50 Eos # (Auto) 0.7 (0.0-0.7) 07/01/18 12:50 Baso # (Auto) 0.04 K/mm3 (0.0-2.0) 07/01/18 12:50 Absolute Neuts (auto) 9.53 (1.4-6.5) H 07/01/18 12:50 ESR 50 mm/hr (0.0-20.0) H 07/01/18 11:00 PT 13.9 SECONDS (9.4-12.5) H 07/01/18 12:50 INR 1.23 07/01/18 12:50 APTT 31.4 Seconds (26.9-38.3) 07/01/18 12:50 Sodium 134 mmol/L (132-148) 07/04/18 06:00 Potassium 3.1 mmol/L (3.6-5.0) L 07/04/18 06:00 Chloride 102 mmol/L (98-107) 07/04/18 06:00 Carbon Dioxide 25 mmol/L (21-33) 07/04/18 06:00 Anion Gap 10 (10-20) 07/04/18 06:00 BUN 5 mg/dL (7-21) L 07/04/18 06:00 Creatinine 0.6 mg/dl (0.7-1.2) L 07/04/18 06:00 Est GFR ( Amer) > 60 07/04/18 06:00 Est GFR (Non-Af Amer) > 60 07/04/18 06:00 Random Glucose 105 mg/dL (70-110) 07/04/18 06:00 Calcium 8.1 mg/dL (8.4-10.5) L 07/04/18 06:00 Magnesium 2.0 mg/dL (1.7-2.2) 07/01/18 12:50 Iron 15 ug/dL (45-180) L 07/02/18 07:00 TIBC 343 ug/dL (265-497) 07/02/18 07:00 % Saturation 4 % (20-55) L 07/02/18 07:00 Ferritin 16.8 ng/mL 07/02/18 07:00 Total Bilirubin 0.2 mg/dL (0.2-1.3) 07/04/18 06:00 AST 33 U/L (14-36) 07/04/18 06:00 ALT 15 U/L (7-56) 07/04/18 06:00 Alkaline Phosphatase 81 U/L (38-126) 07/04/18 06:00 Troponin I < 0.01 ng/mL 07/01/18 12:50 C-React Prot High Sens > 15.00 mg/L (1.00-3.00) H 07/01/18 11:00 Total Protein 6.5 g/dL (5.8-8.3) 07/04/18 06:00 Albumin 2.9 g/dL (3.0-4.8) L 07/04/18 06:00 Globulin 3.7 gm/dL 07/04/18 06:00 Albumin/Globulin Ratio 0.8 (1.1-1.8) L 07/04/18 06:00 Lipase 67 U/L (23-300) 07/01/18 12:50 Urine Color Yellow (YELLOW) 07/01/18 12:45 Urine Appearance Clear (CLEAR) 07/01/18 12:45 Urine pH 6.0 (4.7-8.0) 07/01/18 12:45 Ur Specific [place] 1.025 (1.005-1.035) 07/01/18 12:45 Urine Protein Trace mg/dL (<30 mg/dL) H 07/01/18 12:45 Urine Glucose (UA) Negative mg/dL (NEGATIVE) 07/01/18 12:45 Urine Ketones Negative mg/dL (NEGATIVE) 07/01/18 12:45 Urine Blood Moderate (NEGATIVE) H 07/01/18 12:45 Urine Nitrate Negative (NEGATIVE) 07/01/18 12:45 Urine Bilirubin Negative (NEGATIVE) 07/01/18 12:45 Urine Urobilinogen 0.2 E.U./dL (<1 E.U./dL) 07/01/18 12:45 Ur Leukocyte Esterase Negative Keke/uL (NEGATIVE) 07/01/18 12:45 Urine RBC 20 - 25 /hpf (0-2) H 07/01/18 12:45 Urine WBC 1 - 3 /hpf (0-6) 07/01/18 12:45 Ur Epithelial Cells 6 - 8 /hpf (0-5) H 07/01/18 12:45 Amorphous Sediment Few /hpf (NONE) 07/01/18 12:45 Urine Bacteria Mod /hpf (NONE) 07/01/18 12:45 Blood Type B POSITIVE 07/01/18 12:50 Antibody Screen Negative 07/01/18 12:50 BBK History Checked Patient has bt 07/01/18 12:50 Attending/Attestation - Attestation I have personally seen and examined this patient.: Yes I have fully participated in the care of the patient.: Yes I have reviewed all pertinent clinical information, including history, physical exam and plan: Yes Notes (Text): 07/04/18 13:05 43 year old female with past medical history of ulcerative colitis and CDif colitis who presented with complaint of abdominal pain and bloody diarrhea. CT abd/pelvis showed nonspecific colitis. Patient was started on iv flagyl, po vanco, asacol and rowasa enema as per GI. Leukocytosis and hypokalemia have resolved. CDif study was negative. Patient is no longer febrile. Anemia workup consistent with iron deficiency anemia; discussed with patient regarding started iron supplementation. She was being followed by GI. As her symptoms improved her diet was advanced which she is tolerating. Potassium was repleted today but she refused to recheck labs. Please repeat as outpatient. Patient is discharged home to follow up at [facility] [place]. Follow up with GI. Continue with po vanco, asacol and rowasa. Continue with iron supplements. Monitor anemia closely as outpatient. Taj Gupta MD Hospitalist.
--- NOTE | 2018-07-04 16:35 | CP.PCM.PN ---
<rIwin Smart - Last Filed: 07/04/18 16:32> Subjective - Date & Time of Evaluation Date of Evaluation: 07/04/18 Time of Evaluation: 09:00 - Subjective Subjective: PGY6 GI Fellow Progress Note - LATE ENTRY Patient seen and examined bedside this morning. The patient admits to ongoing improvement in abdominal pain. No diarrhea this morning. Tolerating diet. 12 system ROS performed and negative except where stated Objective - Vital Signs/Intake and Output Vital Signs (last 24 hours): Temp Pulse Resp BP Pulse Ox 98.1 F 89 20 111/77 98 07/04/18 06:00 07/04/18 06:00 07/04/18 06:00 07/04/18 06:00 07/04/18 06:00 Intake and Output: 07/04/18 07/04/18 06:59 18:59 Intake Total 1080 Balance 1080 - Medications Medications: Current Medications Acetaminophen (Tylenol 325mg Tab) 650 mg PO Q4H PRN PRN Reason: Fever >100.4 F Last Admin: 07/04/18 02:20 Dose: 650 mg Metronidazole (Flagyl) 500 mg in 100 mls @ 100 mls/hr IVPB Q8 [facility]; Protocol Last Admin: 07/04/18 06:27 Dose: 100 mls/hr Mesalamine (Asacol Hd 800mg) 800 mg PO TID [facility] Last Admin: 07/04/18 10:31 Dose: 800 mg Mesalamine (Rowasa Enema) 4 gm RC HS [facility] Last Admin: 07/03/18 21:51 Dose: 4 gm Morphine Sulfate (Morphine) 1 mg IVP Q6H PRN PRN Reason: Pain, severe (8-10) Last Admin: 07/04/18 07:57 Dose: 1 mg Ondansetron HCl (Zofran Inj) 4 mg IVP Q6H PRN PRN Reason: Nausea/Vomiting Last Admin: 07/04/18 06:36 Dose: 4 mg Pantoprazole Sodium (Protonix Inj) 40 mg IVP DAILY [facility] Last Admin: 07/04/18 10:31 Dose: 40 mg Vancomycin HCl (Vancocin 25 Mg/Ml (Oral Use)) 125 mg PO QID [facility]; Protocol Last Admin: 07/04/18 10:33 Dose: 125 mg - Labs Labs: 07/04/18 06:00 07/04/18 06:00 PT 13.9 SECONDS (9.4-12.5) H 07/01/18 12:50 INR 1.23 07/01/18 12:50 APTT 31.4 Seconds (26.9-38.3) 07/01/18 12:50 - Constitutional Appears: Non-toxic, No Acute Distress - Eye Exam Eye Exam: EOMI, PERRL - ENT Exam ENT Exam: Mucous Membranes Moist - Respiratory Exam Respiratory Exam: Clear to Ausculation Bilateral. absent: Rales, Rhonchi, Wheezes - Cardiovascular Exam Cardiovascular Exam: RRR, +S1, +S2 - GI/Abdominal Exam GI & Abdominal Exam: Soft, Normal Bowel Sounds. absent: Distended, Firm, Guarding, Rigid, Tenderness, Organomegaly - Extremities Exam Extremities Exam: Normal Inspection. absent: Pedal Edema - Neurological Exam Neurological Exam: Alert, Awake, Oriented x3 - Psychiatric Exam Psychiatric exam: Normal Affect, Normal Mood - Skin Skin Exam: Dry, Warm Assessment and Plan - Assessment and Plan (Free Text) Assessment: Patient is a 43yo female with PMHx significant for C diff colitis and probable ulcerative colitis who presented to the ED with abdominal pain and diarrhea -Pancolitis -Suspected inflammatory bowel disease -H/O recent C diff infection Plan: -Significant improvement clinically; nontender to palpation at this time -Stressed importance of using mesalamine oral/rectal daily -Ongoing therapy with PO Vancomycin for another 2 weeks for C diff infection -Outpatient follow up stressed <Vanessa Ayala V - Last Filed: 07/04/18 23:04> Objective - Vital Signs/Intake and Output Vital Signs (last 24 hours): Temp Pulse Resp BP Pulse Ox 98.1 F 89 20 111/77 98 07/04/18 06:00 07/04/18 06:00 07/04/18 06:00 07/04/18 06:00 07/04/18 06:00 - Labs Labs: 07/04/18 06:00 07/04/18 06:00 PT 13.9 SECONDS (9.4-12.5) H 07/01/18 12:50 INR 1.23 07/01/18 12:50 APTT 31.4 Seconds (26.9-38.3) 07/01/18 12:50 Attending/Attestation - Attestation I have personally seen and examined this patient.: Yes I have fully participated in the care of the patient.: Yes I have reviewed all pertinent clinical information, including history, physical exam and plan: Yes Notes (Text): This is an addendum to the GI progress report dictated by the fellow. The patient was seen and evaluated along with the fellow. Patient is on mesalamine and also Rowasa enemas. Patient is also on p.o. vancomycin with a significant improvement. The plan is to continue at least another 2 weeks of therapy with the p.o. vancomycin and continue the Rowasa enemas and mesalamine p.o. to 2.8 g daily. Patient was not told clearly about the importance of follow-u 07/04/18 23:03
== END 2018-07-04 16:48 | disposition home or self-care (01) | DRG 245 ==
LOC: ED 11:44 → ERH 15:55 → 3RNO 17:35 → OBSVTOIN 07-02 15:21
PROVIDERS: ADMIT Hospitalist; ATTEND Internal Medicine
DX: K51.90 Ulcerative colitis, unspecified, without complications (principal); A04.71 Enterocolitis due to Clostridium difficile, recurrent; D50.9 Iron deficiency anemia, unspecified; E87.6 Hypokalemia